=== PATIENT | male | born 1970 | race Caucasian/White ===

== ENCOUNTER 2016-08-19 03:53 | Emergency (ER) | payer OTHER ==
[~2016-08-19] VITALS: Ht 165.1 cm; Wt 81.6 kg
--- NOTE | 2016-08-19 04:17 | ED GI/GU/ABDOMINAL COMPLAINT ---
History of Present Illness General Chief Complaint: Male Genitourinary Problems Stated Complaint: "TROUBLE URINATING" PER PT Source: patient Exam Limitations: no limitations Vital Signs & Intake/Output Vital Signs & Intake/Output Vital Signs Date Time Temp Pulse Resp B/P B/P Pulse O2 O2 Flow FiO2 Mean Ox Delivery Rate 08/19 0424 96.8 78 18 180/79 98 Room Air Allergies Coded Allergies: No Known Drug Allergies (nkda 08/19/16) Reconcile Medications Ciprofloxacin HCl (Cipro) 500 MG TABLET 1 TAB PO BID PROSTATITIS Tamsulosin HCl (Flomax) 0.4 MG CAP.ER.24H 1 CAP PO DAILY DIFFICULTY WITH URINATION Triage Nurses Notes Reviewed? yes Onset: Gradual Duration: week(s):, waxing and waning Timing: recent history Quality/Severity: cramping Location: suprapubic Radiation: no radiation Activities at Onset: none Modifying Factors: Worsens With: urinating. Associated Symptoms: LOWER ABDOMINAL PAIN HPI: 46-year-old gentleman in prior good health presents with difficulty urinating for the past 2 weeks. He states that he urinates, sometimes he feels like he cannot completely empty his bladder. He notes occasional burning. He states that tonight he had increasing lower abdominal pressure and pain with urination. He has no fever chills nausea vomiting diarrhea chest pain shortness of breath or Reiger's. He is otherwise well. Past History Travel History Traveled to [place] past 21 day No Medical History Any Pertinent Medical History? see below for history Surgical History Surgical History: none Family History Hx Contributory? No Review of Systems Review of Systems Constitutional: Reports: no symptoms. EENTM: Reports: no symptoms. Respiratory: Reports: no symptoms. Cardiovascular: Reports: no symptoms. GI: Reports: no symptoms. Genitourinary: Reports: no symptoms. Musculoskeletal: Reports: no symptoms. Skin: Reports: no symptoms. Neurological/Psychological: Reports: no symptoms. Hematologic/Endocrine: Reports: no symptoms. Immunologic/Allergic: Reports: no symptoms. All Other Systems: Reviewed and Negative Physical Exam Physical Exam General Appearance: well developed/nourished, mild distress Head: atraumatic, normal appearance Eyes: Bilateral: normal appearance. Ears, Nose, Throat, Mouth: hearing grossly normal Neck: normal inspection, supple, full range of motion, normal alignment Respiratory: normal breath sounds Cardiovascular: regular rate/rhythm Gastrointestinal: normal bowel sounds, soft, mild suprapubic tenderness. No palpable bladder appreciated. Rectal: exquisitely tender slightly enlarged warm to touch prostate. Guaiac- negative Back: normal inspection Extremities: normal range of motion Neurologic/Psych: no motor/sensory deficits, awake, alert, oriented x 3 Skin: intact, normal color, warm/dry Core Measures ACS in differential dx? No Severe Sepsis Present: No Septic Shock Present: No Progress Differential Diagnosis: UTI versus prostatitis. Versus other Plan of Care: Given the exquisitely tender prostate, we will treat with Flomax and Cipro. He will follow-up with the urologist on Sunday. I encouraged close follow-up should his symptoms not improve. Initial ED EKG: none Departure Departure Disposition: HOME OR SELF CARE Condition: Stable Clinical Impression Primary Impression: Prostatitis Referrals: PATIENT HAS NO PRIMARY CARE DR (PCP/Family) Departure Forms: Customer Survey General Discharge Information Prescriptions: Current Visit Scripts Ciprofloxacin HCl (Cipro) 1 TAB PO BID #28 TAB Tamsulosin HCl (Flomax) 1 CAP PO DAILY #30 CAP
[2016-08-19 04:24] VITALS: BP 180/79
[2016-08-19] MEDS ORDERED: FLOMAX0.4 M1 PO (04:33)
[2016-08-19] MEDS ORDERED: CIPRO500 M1 PO (04:33)
== END 2016-08-19 04:43 ==
LOC: ERH 03:53
DX: N41.9 Inflammatory disease of prostate, unspecified (principal)

== ENCOUNTER → 2016-09-07 | Day surgery (SDC) | payer OTHER ==
[~2016-09-07] VITALS: Ht 160 cm; Wt 81.6 kg
[~2016-09-07] MED LIST: CIPRO500 M1 PO; FLOMAX0.4 M1 PO
--- NOTE | 2016-09-07 14:02 | Operative Report ---
Operative/Inv Procedure Report Surgery Date: 09/07/16 Name of Procedure: cystoscopy: laser litho. bladder stone; left retrograde pyelogram with flexible ureteroscopy Pre-Operative Diagnosis: hematuria: bladder stone; left renal colic. Post-Operative Diagnosis: same Estimated Blood Loss: scant Surgeon/Oil Spot Washer: DELILAH KIDD MD Anesthesia: moderate sedation Complications: none Operative/Procedure Note Note: The patient was taken to the operating room and placed on the OR table in supine position. Timeout was performed with the patient awake in order to confirm, and other pertinent perioperative information. After adequate anesthesia and antibiotics, the patient was then placed lithotomy stirrups, draped and prepped in the usual surgical fashion. A 24 Algerian continuous flow laser scope was then inserted under direct visualization using a 30 angle lens. An entering the prostatic urethra the prostate was noted to be enlarged. Upon entering the bladder, the bladder was noted to have significant trabeculation, and a large bladder stone appoximately 2.5cm in size.. The 600 mcm, YAG laser fiber was then inserted through the laser scope. With the laser fiber extended through the scope, and in direct contact with the stone, the laser was fired in order to proceed with a lithotripsy of these bladder stones. After an extended period of time, all of the stones was obliterated. A Kiah syringe was then used in order to aspirate, and evacuate all of the fragments. Fragments were sent to pathology for analysis. Thorough and systematic surveillance the bladder reveals no other bladder stones, or fragments. The Laserscope was then removed without difficulty, leaving the bladder full. A 22 Algerian cystoscope sheath with 30 angle lens was re-inserted into the bladder without difficulty. Upon entering the bladder, the bladder was noted to be free of tumor free of stone. Both orifices were in their orthotopic position. The left ureter orifice was intubated with an 8fr cone-tip catheter and a retrograde pyelogram with fluoroscopy was performed. An 8 mm left mid- ureter filling defect c/w stone was visualized, as well as, left proximal hydronephrosis. The cone-tipped catheter was removed, followed by insertion of a 0.035 Glidewire, which was advanced into the left renal pelvis without difficulty, and placement confirmed on fluoroscopy. Leaving the Glidewire in place, using a flexible ureteroscope, which was railroaded over the Glidewire with fluoroscopic visualization into the left kidney. Roscope, the bladder was then re-entered under direct visualization. The left ureter orifice was clearly visible and wide open. The ureteroscope was ealily advanced/inserted into the open ureter under direct visualization. Pyeloscopy, and visualization of the upper middle and lower calyces was performed revealing no tumor, no stone. The ureteroscope was then gently extracted, and the entire left renal pelvis and ureter was visualized, revealing no other stones, nor any tumor. The patient tolerated procedure well, and was taken to the recovery room in satisfactory condition. Findings: no ureter stone/tumor Discharge Disposition: PACU CC: DELILAH KIDD MD
== END ==
LOC: STS 03:05
DX: N21.0 Calculus in bladder (principal); R31.9 Hematuria, unspecified; N40.1 Benign prostatic hyperplasia with lower urinary tract symptoms; R30.0 Dysuria; Z87.891 Personal history of nicotine dependence
CPT/HCPCS: 82355; J0131; J1100; J1885; J2250; J2405

== ENCOUNTER → 2016-09-19 | Day surgery (SDC) | payer OTHER ==
[~2016-09-19] VITALS: Ht 160 cm; Wt 81.6 kg
--- NOTE | 2016-09-19 16:02 | Operative Report ---
Operative/Inv Procedure Report Surgery Date: 09/19/16 Name of Procedure: right ESWL: fluoroscopy Pre-Operative Diagnosis: right stone Post-Operative Diagnosis: same Estimated Blood Loss: none Surgeon/Document Control Specialist: DELILAH KIDD MD Anesthesia: moderate sedation Complications: none Operative/Procedure Note Note: The patient was taken to the operating room placed on the OR table in supine position. Timeout was performed, with the patient awake, in order to confirm correct procedure, laterality, anesthesia, and other pertinent perioperative information. After adequate anesthesia and antibiotics, the patient was then positioned over the ESWL table cutout overlying the treatment dome. Fluoroscopy , using AP and oblique views, as well as renal ultrasound, or performed in order to locate the stone. The position of the stone was optimized and positioned in the middle of the ESWL crosshairs. The stone was measured to be approximately 7 mm in size. ESWL was initiated at low power, and after 200 shockwaves delivered , noting the patient's tolerance to the shockwaves, the power was increased to maximum. At the end of 2500 shockwaves, fluoroscopy confirms the change in consistency of the stone, indicating shattering of the stone. The patient tolerated this procedure well. Discharge Disposition: Same Day Admissions CC: DELILAH KIDD MD
== END ==
LOC: STS 02:15
DX: N20.0 Calculus of kidney (principal)
CPT/HCPCS: J2250

== ENCOUNTER 2017-04-19 03:17 | Inpatient (IN) | payer OTHER ==
[~2017-04-19] VITALS: Ht 160 cm; Wt 70.3 kg
--- NOTE | 2017-04-19 04:21 | ED GI/GU/ABDOMINAL COMPLAINT ---
History of Present Illness General Chief Complaint: General Adult Stated Complaint: "I'M HAVING ALOT OF GAS PAIN" DIFF BREATHING Source: patient, family, old records Exam Limitations: no limitations Vital Signs & Intake/Output Vital Signs & Intake/Output Vital Signs Date Time Temp Pulse Resp B/P B/P Pulse O2 O2 Flow FiO2 Mean Ox Delivery Rate 04/19 0339 96.6 93 17 144/89 95 Allergies Coded Allergies: No Known Drug Allergies (nkda 08/19/16) Reconcile Medications No Known Home Medications Triage Note: PT REPORTS GAS PAIN L ABD "WHICH MAKES IT HARD TO BREATHE" STARTING AT APPROX 4PM, WITH INERMITTENT NAUSEA. REPORTS CONSTIPATION BUT HAD A BM 3 HR AGO. "IM NAUSEOUS WHEN I WALK". DENIES NAUSEA AT THIS TIME. Triage Nurses Notes Reviewed? yes Onset: Morning Duration: hour(s):, constant, continues in ED Timing: recent history Quality/Severity: fullness, moderate Location: left flank Radiation: no radiation Activities at Onset: none Prior Abdominal Problems: none Past Sexual History: Unobtainable at this time Modifying Factors: Improves With: lying down. Associated Symptoms: abdominal pain, heartburn, loss of appetite HPI: Less than 1 day prior to admission patient complains of constant left flank pain described as unable to pass gas with distention mild to moderate severity. He moved his bowels several hours prior to admission that was watery. He denies fever chills nausea vomiting chest pain cough shortness of breath headache dysuria rash bleeding. (Gene Sauceda MD) Past History Travel History Traveled to [place] past 21 day No Medical History Any Pertinent Medical History? see below for history Neurological: NONE EENT: NONE Cardiovascular: NONE Respiratory: NONE Gastrointestinal: NONE Hepatic: NONE Renal: nephrolithiasis Musculoskeletal: NONE Psychiatric: NONE Endocrine: NONE Surgical History Surgical History: none Psychosocial History What is your primary language Grenadian Tobacco Use: Never used ETOH Use: occasional use Family History Hx Contributory? No (Gene Sauceda MD) Review of Systems Review of Systems Constitutional: Reports: no symptoms. EENTM: Reports: no symptoms. Respiratory: Reports: no symptoms. Cardiovascular: Reports: no symptoms. GI: Reports: see HPI, abdominal pain, bloating, diarrhea. Genitourinary: Reports: no symptoms. Musculoskeletal: Reports: no symptoms. Skin: Reports: no symptoms. Neurological/Psychological: Reports: no symptoms. Hematologic/Endocrine: Reports: no symptoms. Immunologic/Allergic: Reports: no symptoms. All Other Systems: Reviewed and Negative (Gene Sauceda MD) Physical Exam Physical Exam General Appearance: well developed/nourished, alert, awake, anxious, mild distress Head: atraumatic, normal appearance Eyes: Bilateral: normal appearance, PERRL, EOMI, normal inspection. Ears, Nose, Throat, Mouth: hearing grossly normal, moist mucous membrane Neck: normal inspection, supple, full range of motion, normal alignment Respiratory: normal breath sounds, chest non-tender, no respiratory distress, quiet respiration, lungs clear Cardiovascular: regular rate/rhythm, normal peripheral pulses, norml femoral pulses equa Peripheral Pulses: 4+ carotid (R), 4+ carotid (L) Gastrointestinal: soft, non-tender, no organomegaly, abnormal bowel sounds Male Genitals: normal genitalia Back: normal inspection, normal range of motion Extremities: normal range of motion, no ligament instability Neurologic/Psych: no motor/sensory deficits, awake, alert, oriented x 3, normal gait, normal mood/affect, manager lean II-XII nml as tested Skin: intact, normal color, warm/dry Core Measures ACS in differential dx? No Sepsis Present: No Sepsis Focused Exam Completed? No (Gene Sauceda MD) Progress Differential Diagnosis: gastritis, PUD/GERD Plan of Care: Orders Procedure Date/time Status Nothing by Mouth 04/19 L Active ED Holding Orders 04/19 725 Active Admit to inpatient 04/19 725 Active Vital Signs 04/19 725 Active Code Status 04/19 725 Active XRY-PORTABLE CHEST XRAY 04/19 06 Active URINALYSIS 04/19 353 Active TROPONIN LEVEL 04/19 353 Complete LIPASE 04/19 353 Complete COMPREHENSIVE METABOLIC PANEL 04/19 353 Complete CBC WITHOUT DIFFERENTIAL 04/19 353 Complete EKG 04/19 353 Active Laboratory Tests 04/19/17 0430: Anion Gap 15, Estimated GFR 43 L, BUN/Creatinine Ratio 7.1, Glucose 122 H, Calcium 9.5, Total Bilirubin 1.2, AST 28, ALT 39, Alkaline Phosphatase 106, Troponin I < 0.01, Total Protein 7.7, Albumin 4.7, Globulin 3.0, Albumin/ Globulin Ratio 1.6, Lipase 118, CBC w Diff NO MAN DIFF REQ, RBC 5.45, MCV 87.0, MCH 29.4, MCHC 33.7, RDW 13.5, MPV 8.3, Gran % 90.0 H, Lymphocytes % 5.1 L, Monocytes % 4.7, Eosinophils % 0.2, Basophils % 0, Absolute Granulocytes 12.3 H , Absolute Lymphocytes 0.7 L, Absolute Monocytes 0.6, Absolute Eosinophils 0, Absolute Basophils 0 Diagnostic Imaging: Viewed by Me: Radiology Read. Discussed w/RAD: Radiology Read. Radiology Impression: 1. No acute change of chest. 2. Nearly gasless abdomen with only a few small scattered air-fluid levels. CT scan abdomen and pelvis would be helpful for further assessment. 3. Pancreatic calcifications consistent with chronic pancreatitis., 1. Hydronephrosis of left kidney dilatation down to the left ureterovesical junction without stone in the ureter or bladder. There is a nonobstructive large stone in lower pole of left kidney. 2. Small bowel dilatation with transition point in right lower quadrant. Bowel pattern suggests a small bowel obstruction rather than ileus. 3. Right inguinal hernia containing a knuckle of the bladder and a small amount of fluid in the hernia sac. Initial ED EKG: normal axis, normal intervals, normal p-waves, normal QRS complex, normal sinus rhythm, no ST T wave changes Rhythm Strip: normal sinus rhythm Hand-Off Endorsed To: Lucius Damian MD Endorsed Time: 656 Pending: other (Sx) (Gene Sauceda MD) Departure Departure Disposition: STILL A PATIENT Condition: Fair Clinical Impression Primary Impression: Small bowel obstruction Secondary Impressions: Acute kidney injury Referrals: Inez Colindres MD, I (PCP/Family) Departure Forms: Customer Survey General Discharge Information Prescriptions: Current Visit Scripts No Known Home Medications (Gene Sauceda MD) Admission Note Spoke With: Geronimo Mae DO Documentation of Exam: Documentation of any treatments & extenuating circumstances including Concerns Regarding Discharge (functional status, medication knowledge or non-compliance, living conditions, etc.) that warrant an admission rather than observation: [NPO , NGT, IV FLUIDS, MAY REQUIRE SURGICAL INTERVENTION IF SBO DOES NOT SELF RESOLVE.] (Lucius Damian MD)
[2017-04-19 04:40] LABS: ABSOLUTE BASOPHIL COUNT 0 /CUMM (0.0-0.2); ABSOLUTE EOSINOPHIL COUNT 0 /CUMM (0.0-0.7); ABSOLUTE GRANULOCYTE CT 12.3 /CUMM (1.4-6.5); ABSOLUTE LYMPH COUNT 0.7 /CUMM (1.2-3.4); ABSOLUTE MONOCYTE COUNT 0.6 /CUMM (0.10-0.60); BASOPHIL % 0 % (0.0-2.0); EOSINOPHIL % 0.2 % (0-5); HEMATOCRIT 47.5 % (42-52); MEAN CORPUSCULAR HGB 29.4 PG (27.0-31.0); MEAN CORPUSCULAR HGB CONC 33.7 G/DL (33.0-37.0); MEAN PLATELET VOLUME 8.3 FL (7.4-10.4); PLATELET COUNT 254 /CUMM (130-400); RBC DISTRIBUTION WIDTH 13.5 % (11.5-14.5); RED BLOOD CELL CT 5.45 /CUMM (4.70-6.10); WHITE BLOOD CELL COUNT 13.7 /CUMM (4.8-10.8)
--- NOTE | 2017-04-19 04:40 | RADIOLOGY REPORT ---
EXAMINATION: XR ABDOMEN WITH PA CHEST CLINICAL INDICATION: Small bowel obstruction. Left flank pain. Nausea. Abdominal distention. COMPARISON: None TECHNIQUE: Single view chest. Supine upright abdomen FINDINGS: Chest is normal. Lungs are clear. Cardiac and mediastinal contours are normal. No pleural effusion or pneumothorax. The abdomen is nearly gasless. There are just a few scattered nonspecific air-fluid levels. CT scan of the abdomen and pelvis with the helpful for further assessment. There are punctate calcifications of the pancreas consistent with chronic pancreatitis. No free air. IMPRESSION: 1. No acute change of chest. 2. Nearly gasless abdomen with only a few small scattered air-fluid levels. CT scan abdomen and pelvis would be helpful for further assessment. 3. Pancreatic calcifications consistent with chronic pancreatitis.
--- NOTE | 2017-04-19 05:51 | CT SCAN REPORT ---
EXAMINATION: CT ABDOMEN AND PELVIS WITHOUT CONTRAST CLINICAL INFORMATION: Left flank pain COMPARISON: None TECHNIQUE: Multidetector volumetric imaging was performed from the superior aspect of the liver through the pubic symphysis. Sagittal and coronal reformatted images were obtained on the technologist's workstation. DLP: 391.80 mGy-cm FINDINGS: LUNG BASES: The visualized lung bases are unremarkable. LIVER, GALLBLADDER, AND BILIARY TREE: The liver is normal in size, shape, and attenuation. No focal hepatic lesion or biliary ductal dilatation is present. The gallbladder is unremarkable with no evidence of radiopaque gallstones, gallbladder wall thickening, or obvious pericholecystic inflammatory changes. PANCREAS: Unremarkable. SPLEEN: Unremarkable. ADRENAL GLANDS: Unremarkable. KIDNEYS AND URETERS: There is a stone in lower pole calyx of the left kidney. Stone measures 1.6 x 1.2 cm. The stone has a density measurement of 385 Hounsfield units. The stone lies 7.5 cm from the posterior lateral skin line. There is moderate hydronephrosis of left kidney with distention renal pelvis calyces and ureter to the ureterovesical junction. No stone is present within the ureter nor the bladder. The right kidney and ureter are normal. BLADDER: There is a right inguinal hernia. This contains a portion of the bladder wall extending into the hernia. No stone in the bladder. No bladder wall thickening. GASTROINTESTINAL TRACT: The bowel pattern is abnormal. There are dilated bowel loops. The small bowel loops of the mid and upper abdomen are dilated down to the right lower quadrant. Is a transition point in the right lower quadrant with the terminal ileum being decompressed. This transition suggest this bowel dilatation is from obstruction rather than ileus. There is no edema of the bowel wall. No dilatation of the large bowel. The appendix is normal. ABDOMINAL WALL: Bilateral inguinal hernias. The hernia on the right contains a knuckle of the wall of the bladder and a small amount of fluid. This hernia measures 3.6 cm transverse. The left-sided hernia contains fat only measures 1.7 cm transverse. There is a small fat-containing umbilical hernia. LYMPH NODES: Normal. VASCULAR: Unremarkable. PELVIC VISCERA: Unremarkable. OSSEOUS STRUCTURES: Degenerative spondylosis of spine with bridging osteophytes and endplate spurs of the vertebrae. Multilevel facet joint arthrosis. IMPRESSION: 1. Hydronephrosis of left kidney dilatation down to the left ureterovesical junction without stone in the ureter or bladder. There is a nonobstructive large stone in lower pole of left kidney. 2. Small bowel dilatation with transition point in right lower quadrant. Bowel pattern suggests a small bowel obstruction rather than ileus. 3. Right inguinal hernia containing a knuckle of the bladder and a small amount of fluid in the hernia sac.
--- NOTE | 2017-04-19 07:38 | RADIOLOGY REPORT ---
EXAMINATION: XR PORTABLE CHEST CLINICAL INFORMATION: NG tube placement COMPARISON: None TECHNIQUE: Portable frontal view of the chest was obtained. FINDINGS: Nasogastric tube tip is noted at the GE junction. Further advancement is recommended. Cardiomegaly. Low lung volumes. Elevated right hemidiaphragm. Streaky infiltrate or atelectasis noted in the left base. Visualized bony thorax is intact. IMPRESSION: Nasogastric tube tip is at the level of GE junction. Further advancement is recommended. Low lung volumes. Streaky atelectasis or infiltrate noted in the left base.
--- NOTE | 2017-04-19 08:16 | History & Physical ---
Trinity Garciatany 04/19/17 0806: General Information and HPI Source of Information: patient Exam Limitations: no limitations History of Present Illness: PT states that he started having left-sided abdominal pain associated with nausea yesterday afternoon. pt says he has had one prior episode similar to thisa few months ago but that it spontaneously resolved while at home. He denies fever. no vomiting. last BM was last night and was watery. Pt has the urge to have a BM but is unable to go. Voiding. ambulating. Currently in ED with NG tube in place, minimal clear output whiel on suction, will rec advancing tube. Currently no pain. Allergies/Medications Allergies: Coded Allergies: No Known Drug Allergies (nkda 08/19/16) Home Med list No Known Home Medications Past History Travel History Traveled to [place] past 21 day No Medical History Neurological: NONE EENT: NONE Cardiovascular: NONE Respiratory: NONE Gastrointestinal: NONE Hepatic: NONE Renal: nephrolithiasis Musculoskeletal: NONE Psychiatric: NONE Endocrine: NONE Surgical History Surgical History: none Past Family/Social History Psychosocial History Who Do You Live With? spouse Smoking Status: Former Smoker (now uses E-vape) ETOH Use: occasional use Sexual History Past Sexual History Unobtainable at this time Review of Systems Review of Systems GI: Reports: abdominal pain, nausea. Comments as per HPI Exam & Diagnostic Data Physical Exam General Appearance No Acute Distress Skin No Rashes Skin Temp/Moisture Exam: Warm/Dry HEENT EOMI, Mucous Membr. moist/pink Neck Supple Cardiovascular Regular Rate Lungs Clear to Auscultation Abdomen Normal Bowel Sounds (distended, minimal BS, tender ) Extremities No Edema, Normal Pulses, No Tenderness/Swelling Assessment/Plan Assessment: 47yo M with SBO. Rec 23h Observation Rec Bowel rest with NGT on intermittent suction NPO IVF dvt ppx- SQ hep and ALPS encourage ambulation AM labs Will dw Geronimo Kenney DO 04/19/17 1850: Review of Systems Review of Systems Constitutional: Denies: no symptoms. EENTM: Denies: no symptoms. Cardiovascular: Denies: no symptoms. Respiratory: Denies: no symptoms. Genitourinary: Denies: no symptoms. Musculoskeletal: Denies: no symptoms. Skin: Denies: no symptoms. Neurological/Psychological: Denies: no symptoms. Hematologic/Endocrine: Denies: no symptoms. Exam & Diagnostic Data Last 24 Hrs of Vital Signs/I&O Vital Signs Date Time Temp Pulse Resp B/P B/P Pulse O2 O2 Flow FiO2 Mean Ox Delivery Rate 04/19 1836 98.0 66 16 164/90 98 Room Air 04/19 1344 98.9 67 18 190/86 100 Room Air Room Air 04/19 0948 97.8 78 20 138/82 95 Room Air 04/19 0339 96.6 93 17 144/89 95 Intake & Output 04/19 1600 04/19 0800 04/19 0000 Intake Total Output Total Balance Patient 150 lb Weight Assessment/Plan As Ranked By This Provider Problem List: 1. Small bowel obstruction Core Measures/Misc (11/26) Acute Coronary Syndrome ACS Diagnosis: No Congestive Heart Failure Congestive Heart Failure Diagnosis No Cerebrovascular Accident CVA/TIA Diagnosis: No VTE (View Protocol) VTE Risk Factors Age>40 No Mechanical VTE Prophylaxis d/t Early Ambulation No VTE Pharm Prophylaxis d/t LowRisk-No Interven Req'd Sepsis (View protocol) Sepsis Present: No Attending MD Review Statement Attending Statement Attending MD Statement: examined this patient, discuss w/resident/PA/GERIATRIC NURSE PRACTITIONER, agreed w/resident/PA/GERIATRIC NURSE PRACTITIONER, discussed with family, reviewed EMR data (avail), reviewed images Attending Assessment/Plan: Patient seen and examined, agree with above. Abdominal pain with N/V. AVSS. NGT clear. Abd - soft. Labs ok. CT scan - c/w SBO. Althugh he clinically at this time does not have obstructive symptoms, given the CT read will wait for repeat AXR, if contrast in colon will D/C NGT and start fulls, OOB.
--- NOTE | 2017-04-19 18:36 | Admission Core Measures ---
Acute Coronary Syndrome (CM) ACS Core Measures Acute Coronary Syndrome Diagnosis No Congestive Heart Failure (NEW) CHF Core Measures Congestive Heart Failure Diagnosis No Cerebrovascular Accident (NEW) CVA Core Measures CVA/TIA Diagnosis No Venous Thromboembolism VTE Core Aliya (View Protocol) VTE Risk Factors Age>40 No Mechanical VTE Prophylaxis d/t N/A MechProphylax Ordered No VTE Pharm Prophylaxis d/t NA PharmProphylax ordered Problem List As ranked by this Provider includes Assessment & Plan 1. Small bowel obstruction HOME MEDS Home Med List No Known Home Medications
[2017-04-19 19:24] VITALS: BP 138/82
--- NOTE | 2017-04-20 02:35 | RADIOLOGY REPORT ---
EXAMINATION: XR ABDOMEN MULTIPLE VIEWS CLINICAL INDICATION: Abdominal pain. Nausea. Gastrografin administered COMPARISON: CT abdomen pelvis April, TECHNIQUE: Supine upright abdomen FINDINGS: There is distended small bowel loops with air-fluid levels. Most of the large bowel is air-filled. The terminal ileum and distal small bowel loops have some contrast remaining and are decompressed. Large bowel is decompressed and holds most of the administered contrast. Minimal stool seen in the left colon. Bowel pattern again consistent with small bowel obstruction similar to the CT study of May 01, 2017. IMPRESSION: Abnormal bowel pattern consistent with small bowel obstruction. Most of the contrast does reach the colon.
[2017-04-20 05:26] VITALS: BP 130/80
--- NOTE | 2017-04-20 07:19 | PN- General Surgery ---
Subjective Subjective: hd #1 with resolving SBO. Had 3+bms overnight, including this morning. Minimal flatus. Still feels bloated. No nausea. Tolerating ice chips. Objective Vital Signs and I&Os Vital Signs Date Time Temp Pulse Resp B/P B/P Pulse O2 O2 Flow FiO2 Mean Ox Delivery Rate 04/20 525 98.4 65 20 130/80 97 Room Air 04/19 1924 98.0 65 18 138/82 99 Room Air 04/19 1836 98.0 66 16 164/90 98 Room Air 04/19 1344 98.9 67 18 190/86 100 Room Air Room Air 04/19 0948 97.8 78 20 138/82 95 Room Air Intake & Output 04/20 0804/20 0000 04/19 1600 04/19 0804/19 0000 04/18 1600 Intake Total 560 Output Total Balance 560 Intake, IV 460 Intake, Oral 100 Number 3 Bowel Movements Patient 155 lb 150 lb Weight Physical Exam: Gen: AAOx3 in NAD Cor: S1+S2+ Lungs: CTA tawny Abd: softly distended, NT Ext: no edema or calf tenderness to tawny lower extremities. Current Medications: Current Medications Sig/Derrick Start time Last Medication Dose Route Stop Time Status Admin Dextrose/Lactated 1,000 ML Q13H 04/20 0330 AC 04/20 Ringer's IV 0453 Dextrose/Sodium 1,000 ML .Q8H 04/19 08 DC 04/19 Chloride IV 0827 Heparin Sodium 5,000 UNIT Q8 04/19 1400 AC 04/20 (Porcine) SC 0457 Heparin Sodium 0 .STK-MED ONE 04/19 814 DC (Porcine) .ROUTE Morphine Sulfate 0 .STK-MED ONE 04/19 824 DC .ROUTE Morphine Sulfate 2 MG Q4P PRN 04/19 814 AC 04/19 IV 0827 Ondansetron HCl 0 .STK-MED ONE 04/19 814 DC .ROUTE Ondansetron HCl 4 MG Q8P PRN 04/19 08 AC 04/19 IV 0827 Phenol 2 SPRAY Q2P PRN 04/19 1845 AC EXT Potassium Chloride 40 MEQ ONCE ONE 04/20 0330 DC 04/20 PO 04/20 0331 0500 Potassium Chloride 40 MEQ Q8H 04/19 1700 DC 04/19 Dextrose/Water 1,000 ML IV 1852 Potassium Chloride 40 MEQ ONCE ONE 04/19 1645 CAN IV 04/19 1646 Results Last 48 Hours of Labs: Laboratory Tests 04/19 04/19 0750 0430 Chemistry Sodium (137 - 145 mmol/L) 141 Potassium (3.5 - 5.1 mmol/L) 3.1 L Chloride (98 - 107 mmol/L) 101 Carbon Dioxide (22 - 30 mmol/L) 25 Anion Gap (5 - 16) 15 BUN (9 - 20 mg/dL) 12 Creatinine (0.7 - 1.2 mg/dL) 1.7 H Estimated GFR (>60 ml/min) 43 L BUN/Creatinine Ratio (7 - 25 %) 7.1 Glucose (65 - 99 mg/dL) 122 H Calcium (8.4 - 10.2 mg/dL) 9.5 Total Bilirubin (0.2 - 1.3 mg/dL) 1.2 AST (17 - 59 U/L) 28 ALT (21 - 72 U/L) 39 Alkaline Phosphatase (< 127 U/L) 106 Troponin I (<0.11 ng/ml) < 0.01 Total Protein (6.3 - 8.2 g/dL) 7.7 Albumin (3.5 - 5.0 g/dL) 4.7 Globulin (1.9 - 4.2 gm/dL) 3.0 Albumin/Globulin Ratio (1.1 - 2.2 %) 1.6 Lipase (23 - 300 U/L) 118 Hematology CBC w Diff NO MAN DIFF REQ WBC (4.8 - 10.8 /CUMM) 13.7 H RBC (4.70 - 6.10 /CUMM) 5.45 Hgb (14.0 - 18.0 G/DL) 16.0 Hct (42 - 52 %) 47.5 MCV (80.0 - 94.0 FL) 87.0 MCH (27.0 - 31.0 PG) 29.4 MCHC (33.0 - 37.0 G/DL) 33.7 RDW (11.5 - 14.5 %) 13.5 Plt Count (130 - 400 /CUMM) 254 MPV (7.4 - 10.4 FL) 8.3 Gran % (42.2 - 75.2 %) 90.0 H Lymphocytes % (20.5 - 51.1 %) 5.1 L Monocytes % (1.7 - 9.3 %) 4.7 Eosinophils % (0 - 5 %) 0.2 Basophils % (0.0 - 2.0 %) 0 Absolute Granulocytes (1.4 - 6.5 /CUMM) 12.3 H Absolute Lymphocytes (1.2 - 3.4 /CUMM) 0.7 L Absolute Monocytes (0.10 - 0.60 /CUMM) 0.6 Absolute Eosinophils (0.0 - 0.7 /CUMM) 0 Absolute Basophils (0.0 - 0.2 /CUMM) 0 Urines Urinalysis HEAVY H Urine Color (YEL,AMB,STR) YEL Urine Clarity (CLEAR) HAZY H Urine pH (5.0 - 8.0) 6.0 Ur Specific [place] (1.001 - 1.035) 1.025 Urine Protein (NEG,<30 MG/DL) 30 H Urine Ketones (NEG) NEG Urine Nitrite (NEG) NEG Urine Bilirubin (NEG) NEG Urine Urobilinogen (0.1 - 1.0 EU/dl) 0.2 Ur Leukocyte Esterase (NEG) NEG Ur Microscopic SEDIMENT EXAMINED Urine RBC (0 - 5 /HPF) 15-25 H Urine WBC (0 - 2 /HPF) RARE Urine Mucus (FEW,NONE) FEW Urine Hemoglobin (NEG) MOD H Urine Glucose (N MG/DL) NEG Assessment/Plan Assessment/Plan A: HD #1 with resolving SBO; AVSS. Xray with dilated SB loops. Contrast in colon. Plan: Continue clears. OOB and ambulate. Consider repeat multiview abdomen. F/U labs. Core Measures Venous Thromboembolism VTE Risk Factors Age>40 No Mechanical VTE Prophylaxis d/t Early Ambulation No VTE Pharm Prophylaxis d/t LowRisk-No Interven Req'd
[2017-04-20 09:22] LABS: ABSOLUTE BASOPHIL COUNT 0 /CUMM (0.0-0.2); ABSOLUTE EOSINOPHIL COUNT 0.1 /CUMM (0.0-0.7); ABSOLUTE GRANULOCYTE CT 6.9 /CUMM (1.4-6.5); ABSOLUTE LYMPH COUNT 1.1 /CUMM (1.2-3.4); ABSOLUTE MONOCYTE COUNT 0.8 /CUMM (0.10-0.60); BASOPHIL % 0.3 % (0.0-2.0); EOSINOPHIL % 1.3 % (0-5); GRANULOCYTE % 76.7 % (42.2-75.2); MEAN CORPUSCULAR HGB 28.9 PG (27.0-31.0); MEAN CORPUSCULAR HGB CONC 33.1 G/DL (33.0-37.0); MEAN CORPUSCULAR VOLUME 87.3 FL (80.0-94.0); MEAN PLATELET VOLUME 8.9 FL (7.4-10.4); PLATELET COUNT 203 /CUMM (130-400); RBC DISTRIBUTION WIDTH 13.3 % (11.5-14.5); RED BLOOD CELL CT 4.84 /CUMM (4.70-6.10); WHITE BLOOD CELL COUNT 9.1 /CUMM (4.8-10.8)
[2017-04-20 10:07] LABS: HEMATOCRIT 42.2 % (42-52)
--- NOTE | 2017-04-20 13:40 | Patient Discharge Instructions ---
Discharge Instructions General Discharge Information You were seen/treated for: bowel obstruction You had these procedures: bowel rest, iv fluids (conservative, nonsurgical) Watch for these problems: recurrent abdominal pain, nausea/vomiting Diet Continue normal diet: Yes Recommended Diet: Regular Activity Full Activity/No Limits: Yes Activity Self Limited: Yes Acute Coronary Syndrome Inclusion Criteria At DC or during hospital stay patient has or had the following: ACS DIAGNOSIS No Discharge Core Measures Meds if any: Prescribed or Continued at Discharge Meds if any: NOT Prescribed or Continued at Discharge Congestive Heart Failure Inclusion Criteria At DC or during hospital stay patient has or had the following: CHF DIAGNOSIS No Discharge Core Measures Meds if any: Prescribed or Continued at Discharge Meds if any: NOT Prescribed or Continued at Discharge Cerebrovascular accident Inclusion Criteria At DC or during hospital stay patient has or had the following: CVA/TIA Diagnosis No Discharge Core Measures Meds if any: Prescribed or Continued at Discharge Meds if any: NOT Prescribed or Continued at Discharge Venous thromboembolism Inclusion Criteria VTE Diagnosis No VTE Type NONE VTE Confirmed by (Test) NONE Discharge Core Measures - Per Current guidelines, there needs to be overlap - treatment for the first 5 days of Warfarin therapy. - If discharged on Warfarin prior to 5 days of - overlap therapy, the patient will need to be - assessed for post discharge needs including - *Post discharge parental anticoagulation - *Warfarin and/or parental anticoagulation education - *Follow up date to check INR post discharge At least 5 days overlap therapy as Inpatient No Meds if any: Prescribed or Continued at Discharge Note: Overlap Therapy is Warfarin and Anticoagulant Meds if any: NOT Prescribed or Continued at Discharge
--- NOTE | 2017-04-20 13:44 | Surg Short-stay <48hrs Dis Sum ---
Visit Information Visit Dates Admission Date: 04/19/17 Discharge Date: 04/20/17 Surgical Short Stay DC Summary Admission Diagnosis: small bowel obstruction Final Diagnosis: same as above, with resolution Procedure(s): bowel rest, nonsurgical Summary/Significant Findings: Admitted for small bowel obstruction. Treated conservatively for iv fluids and bowel rest, with diet advancement with return of bowel function. Repeated xray showed contrast passed through colon. The patient had multiple bms and was tolerating diet advancement prior to discharge home. His potassium was replaced with oral kdur. Condition at Discharge: stable Discharge Disposition: home or self care Discharge instructions provided to patient/family: Yes Post discharge follow-up plan: call PCP for one week follow up Copies to: Inez Colindres MD, I
[2017-04-20 14:35] VITALS: BP 116/72
== END 2017-04-20 18:40 | DRG 390 ==
LOC: ERH 03:17 → ERHI 07:26 → 2NB 07:26 → ENRESERV 16:48 → ENTRNSPT 18:56 → EDTRNSPT 19:06 → EDTRNSPTSTS 19:06 → 2NB 19:14 → CMPTRNSPT 19:20 → ENPENDDIS 04-20 13:44 → ENTRNSPT 04-20 18:35 → 2NB 04-20 18:40 → CMPTRNSPT 04-20 19:22
PROVIDERS: Emergency Medicine; Physician Assistant Surgical
DX: K56.609 Unspecified intestinal obstruction, unspecified as to partial versus complete obstruction (principal); Z87.891 Personal history of nicotine dependence
CPT/HCPCS: 36415; 71045; 74021; 74022; 74176; 81001; 82436; 93005; 93010; 96361; 96374; 96375; J1644; J2405; J2765; J7042; J7060

== ENCOUNTER → 2017-05-22 | Day surgery (SDC) | payer OTHER ==
[~2017-05-22] VITALS: Ht 165.1 cm; Wt 72.6 kg
--- NOTE | 2017-05-22 14:21 | Operative Report ---
Operative/Inv Procedure Report Surgery Date: 05/22/17 Name of Procedure: left renal ESWL: fluoroscopy Pre-Operative Diagnosis: left renal stone: colic Post-Operative Diagnosis: same Estimated Blood Loss: none Surgeon/Concert Promoter: Adebayo Rodriguez MD Anesthesia: moderate sedation Specimens: none Complications: none Operative/Procedure Note Note: The patient was taken to the operating room and placed on the ESWL table in supine position. With the patient awake, timeout was performed to confirm correct identity, procedure, laterality, anesthesia, and other pertinent reid- operative information. After adequate anesthesia, the patient was positioned so that the patient's left flank was positioned over the table cut-out, overlying the dome of the treatment head. Once the patient was adequately sedated, fluoroscopy, as well as Renal ultrasound was used to locate the LEFT renal stone. Renal US confirmed the presence of the stone which measured it to be approximately 10 mm upper pole stone. The stone was visible with fluoroscopy. Renal US revealed, no hydronephrosis, and no solid tumor, and presence of the stone. The position of the stone was optimized by using fluoroscopy in AP and oblique views;placing the stone within the ESWL c-arm crosshairs. Once the stone's position was optimized , the LEFT renal E.S.W.L. was initiated at low energy level. After noting the patient's tolerance to the shockwaves, the intensitiy was ramped up to maximum level. At the end of the procedure, the left renal stone had dissintegrated. Of note, a total of 2500 shockwaves were delivered to the stone. The patient tolerated the ESWL procedures well, was awakened, then taken to recovery in satisfactory condition via stretcher. The patient was dischared home with pain medications, diet orders, and intructions to catch fragments by straining the urine. The patient to to have follow-up renal ultrasound and KUB in 1 to 2 weeks, prior to follow-up visit in my office. He will then proceed with metabolic stone work-up. Discharge Disposition: Same Day Admissions CC: Adebayo Rodriguez MD
== END ==
LOC: STS 02:01
DX: N20.0 Calculus of kidney (principal)

== ENCOUNTER 2017-07-26 06:19 | Inpatient (IN) | payer OTHER ==
[~2017-07-26] VITALS: Ht 162.6 cm; Wt 76.7 kg
--- NOTE | 2017-07-26 07:05 | ED GENERAL ADULT ---
History of Present Illness General Chief Complaint: General Adult Stated Complaint: PT C/O BODY PAIN Source: patient, family, old records Exam Limitations: no limitations Vital Signs & Intake/Output Vital Signs & Intake/Output Vital Signs Date Time Temp Pulse Resp B/P B/P Pulse O2 O2 Flow FiO2 Mean Ox Delivery Rate 07/26 0715 66 22 134/72 97 Allergies Coded Allergies: No Known Drug Allergies (nkda 08/19/16) Reconcile Medications No Known Home Medications Triage Note: PT FROM HOME C/O RIGHT KNEE PAIN THAT WAS FROM A PREVIOUS INJURY ON SUNDAY. PT STATES "TODAY I WOKE UP AND MY WHOLE BODY CRAMPED UP LIKE AMELIA HORSES" PTS STATES "I THINK ITS BECAUSE HE DOESNT DRINK ENOUGH WATER" PT IN NO ACUTE DISTRESS CURRENTLY. Triage Nurses Notes Reviewed? yes HPI: 4 days ago patient twisted his knee and had right knee pain. Patient went to a walk in center and was told that it was a knee sprain. He states that he was told to take 3-4 ibuprofen every 6 hours as needed for the pain. Patient had Aleve at home so figured that that the same thing she has been taking 4 Aleve every 6 hours over the past 3-1/2 days. Patient woke up this morning feeling generalized weakness and fatigue. His states that he has not been drinking a lot of fluids lately. Patient denies any headache or chest pain. He is no difficulty breathing. There is no orthopnea. Patient states that his muscles just ache all over and he feels weak. Past History Travel History Traveled to [place] past 21 day No Medical History Any Pertinent Medical History? see below for history Neurological: NONE EENT: NONE Cardiovascular: NONE Respiratory: NONE Gastrointestinal: NONE Hepatic: NONE Renal: nephrolithiasis Musculoskeletal: NONE Psychiatric: NONE Endocrine: NONE Blood Disorders: NONE Cancer(s): NONE History of MRSA: No History of VRE: No History of CDIFF: No Surgical History Surgical History: KIDNEY STONES REMOVED Psychosocial History Who do you live with Spouse Services at Home None What is your primary language Chilean Tobacco Use: Quit >30 days ago ETOH Use: occasional use Illicit Drug Use: denies illicit drug use Family History Hx Contributory? No Review of Systems Review of Systems Constitutional: Reports: see HPI, weakness. EENTM: Reports: no symptoms. Respiratory: Reports: no symptoms. Cardiovascular: Reports: no symptoms. GI: Reports: no symptoms. Genitourinary: Reports: no symptoms. Musculoskeletal: Reports: see HPI, joint pain, muscle pain. Skin: Reports: no symptoms. Neurological/Psychological: Reports: no symptoms. Hematologic/Endocrine: Reports: no symptoms. Immunologic/Allergic: Reports: no symptoms. All Other Systems: Reviewed and Negative Physical Exam Physical Exam General Appearance: well developed/nourished, alert, awake, mild distress Head: atraumatic, normal appearance Eyes: Bilateral: PERRL, EOMI. Ears, Nose, Throat: normal pharynx, normal ENT inspection, hearing grossly normal Neck: normal inspection, supple, full range of motion Respiratory: normal breath sounds, chest non-tender, no respiratory distress, lungs clear Cardiovascular: regular rate/rhythm, normal peripheral pulses Gastrointestinal: normal bowel sounds, soft, non-tender, no organomegaly Back: normal inspection, normal range of motion Extremities: normal inspection, normal capillary refill, normal range of motion, no edema, FULL ROM RIGHT KNEE, LIGAMENTS STABLE Neurologic/Psych: no motor/sensory deficits, awake, alert, oriented x 3, normal mood/affect Skin: intact, normal color, warm/dry Core Measures ACS in differential dx? No CVA/TIA Diagnosis: No Sepsis Present: No Sepsis Focused Exam Completed? No Progress Differential Diagnoses I considered the following diagnoses in my evaluation of the patient: [AFB, RHABDO, ELECTROLYTE ABNORMALITY, DEHYDRATION] Plan of Care: Orders Procedure Date/time Status Regular Diet 07/26 L Active Add-on Test (ER Only) 07/26 0944 Active Add-on Test (ER Only) 07/26 0929 Active Schmitt, Insertion/Removal/Asses 07/26 0919 Active CULTURE,URINE 07/26 0919 Active ARTERIAL BLOOD GAS (GEN) 07/26 0900 Active Add-on Test (ER Only) 07/26 0859 Active Add-on Test (ER Only) 07/26 0854 Active US-RENAL/KIDNEY 07/26 0843 Active ED Holding Orders 07/26 0837 Active Admit to inpatient 07/26 0837 Active Vital Signs 07/26 0837 Active Code Status 07/26 0837 Active EKG 07/26 0816 Active TROPONIN LEVEL 07/26 0715 Active PHOSPHORUS 07/26 0715 Active SERUM OSMOLALITY 07/26 0715 Active LACTIC ACID 07/26 0715 Active ETHANOL 05/17 0715 Active URINE TOTAL PROT/CREAT RATIO 07/27 703 Active URINE LYTES, SPOT 07/27 703 Active URINALYSIS 07/27 703 Active PARTIAL THROMBOPLASTIN TIME 07/27 703 Complete PROTHROMBIN TIME 07/27 703 Complete COMPREHENSIVE METABOLIC PANEL 07/27 703 Active CREATINE PHOSPHOKINASE 07/27 703 Active CBC WITHOUT DIFFERENTIAL 07/27 703 Complete Current Medications Sig/Derrick Start time Last Medication Dose Stop Time Status Admin Sodium Bicarbonate 150 MEQ Q8H 07/26 09 AC (Sodium Bicarbonate 8.4%) Dextrose/Water 1,000 ML (D5W 1000) Laboratory Tests 07/26/17 09: pH 7.24 *L, pCO2 16 L, pO2 131 H, HCO3 6.6 L, ABG O2 Sat (Measured) 98.0, Carboxyhemoglobin 0.2 L, O2 Concentration % 21, O2 Delivery Method RA, Phlebotomy Draw Site RIGHT BRACHIAL 07/26/17714: Anion Gap 34 H, Estimated GFR 8 L, BUN/Creatinine Ratio 6.4 L, Glucose 126 H , Serum Osmolality 278 L, Lactic Acid Pending, Calcium 6.7 L, Phosphorus 13.5 H, Total Bilirubin 2.6 H, AST 46, ALT 39, Alkaline Phosphatase 109, Creatine Kinase 1265 H, Troponin I 0.02, Total Protein 7.0, Albumin 4.0, Globulin 3.0, Albumin/Globulin Ratio 1.3, PT 13.6 H, INR 1.24 H, APTT 32, CBC w Diff MAN DIFF ORDERED, RBC 5.71, MCV 85.4, MCH 29.0, MCHC 34.0, RDW 14.4, MPV 8.4, Gran % 89.1 H, Lymphocytes % 4.4 L, Monocytes % 6.4, Eosinophils % 0, Basophils % 0.1 , Absolute Granulocytes 21.7 H, Segmented Neutrophils 81 H, Band Neutrophils 7 H, Absolute Lymphocytes 1.1 L, Lymphocytes 5 L, Monocytes 7, Absolute Monocytes 1.6 H, Absolute Eosinophils 0, Absolute Basophils 0, Platelet Estimate ADEQUATE, Normocytic RBCs VERIFIED, Normochromic RBCs VERIFIED, Serum Alcohol < 10.0 Microbiology 07/26 918 URINE ROUT: Urine Culture - ORD Diagnostic Imaging: Viewed by Me: Radiology Read. Discussed w/RAD: Radiology Read. CXR Impression: PATIENT: NORM GRIFFIN PRESENT AGE: 47 PATIENT ACCOUNT NO: [id number] : 70 LOCATION: [facility] ORDERING PHYSICIAN: Lucius Damian MD SERVICE DATE: 07/26/17 EXAM TYPE: RAD - XRY-CHEST XRAY, TWO VIEWS EXAMINATION: XR CHEST CLINICAL INFORMATION: Evaluate for pneumonia. Leukocytosis. COMPARISON: Chest x-ray most recent prior dated 10/2017. TECHNIQUE: 2 views of the chest were obtained. FINDINGS: Cardiomediastinal silhouette is within normal limits. No acute airspace opacity. Mild elevation of the right hemidiaphragm noted again. Improved aeration bilateral lungs compared to the prior study. No evidence of pleural effusion. Bony thorax is intact. IMPRESSION: No acute pulmonary disease. DICTATED BY: Justin Jiang MD DATE/TIME DICTATED:07/26/17853 PROCUREMENT COST COORDINATOR:MARCO A DATE/ TIME TRANSCRIBED:07/26/17853 CONFIDENTIAL, DO NOT COPY WITHOUT APPROPRIATE AUTHORIZATION. <Electronically signed in Other Vendor System> SIGNED BY: Justin Jiang MD 07/26/1759 Initial ED EKG: NSR, nonspecific ST T wave chg Prior EKG: unchanged Comments: D/W DR. BRAR, START BICARB DRIP, CHECK PHOSPHORUS, CHECK URINE LYTES, CHECK NONCONTRAST CT, CHECK URINE PROT/CR RATIO D/W POISON CONTROL, THEY WILL FOLLOW ALONG. PT DENIES ANY TOXICALCOHOLS, AT BEDSIDE AND SHE HAS NO CONCERNS, CHECK SERUM OSM. Departure Departure Disposition: STILL A PATIENT Condition: Fair Clinical Impression Primary Impression: ARF (acute renal failure) Secondary Impressions: Elevated CK, Hypocalcemia, Leukocytosis Referrals: Inez Colindres MD, I (PCP/Family) Departure Forms: Customer Survey General Discharge Information Prescriptions: Current Visit Scripts No Known Home Medications Admission Note Spoke With: Isidoro REES,Eric Holloway Documentation of Exam: Documentation of any treatments & extenuating circumstances including Concerns Regarding Discharge (functional status, medication knowledge or non-compliance, living conditions, etc.) that warrant an admission rather than observation: [IV fluids, renal consultation, hold all nonsteroidal anti-inflammatories, follow renal function closely. It is unknown at this time and the patient will require dialysis or if his kidney function will improve. PT TO BE ADMITTED TO THE ICU] Critical Care Note Critical Care Note Critical Care Time: mins: (120 MIN) Critical Care Time: mins: (120 MIN)
[2017-07-26 07:37] LABS: PT 13.6 SEC (9.4-12.5); PTT 32 SEC (25-37)
[2017-07-26 07:46] LABS: ABSOLUTE BASOPHIL COUNT 0 /CUMM (0.0-0.2); ABSOLUTE EOSINOPHIL COUNT 0 /CUMM (0.0-0.7); ABSOLUTE GRANULOCYTE CT 21.7 /CUMM (1.4-6.5); ABSOLUTE LYMPH COUNT 1.1 /CUMM (1.2-3.4); ABSOLUTE MONOCYTE COUNT 1.6 /CUMM (0.10-0.60); BASOPHIL % 0.1 % (0.0-2.0); EOSINOPHIL % 0 % (0-5); GRANULOCYTE % 89.1 % (42.2-75.2); HEMATOCRIT 48.7 % (42-52); MEAN CORPUSCULAR VOLUME 85.4 FL (80.0-94.0); MEAN PLATELET VOLUME 8.4 FL (7.4-10.4); PLATELET COUNT 322 /CUMM (130-400); RBC DISTRIBUTION WIDTH 14.4 % (11.5-14.5); RED BLOOD CELL CT 5.71 /CUMM (4.70-6.10); WHITE BLOOD CELL COUNT 24.4 /CUMM (4.8-10.8)
--- NOTE | 2017-07-26 08:59 | RADIOLOGY REPORT ---
EXAMINATION: XR CHEST CLINICAL INFORMATION: Evaluate for pneumonia. Leukocytosis. COMPARISON: Chest x-ray most recent prior dated 04/19/2017. TECHNIQUE: 2 views of the chest were obtained. FINDINGS: Cardiomediastinal silhouette is within normal limits. No acute airspace opacity. Mild elevation of the right hemidiaphragm noted again. Improved aeration bilateral lungs compared to the prior study. No evidence of pleural effusion. Bony thorax is intact. IMPRESSION: No acute pulmonary disease.
--- NOTE | 2017-07-26 09:47 | CT SCAN REPORT ---
EXAMINATION: CT ABDOMEN AND PELVIS WITHOUT CONTRAST CLINICAL INFORMATION: Acute renal failure. COMPARISON: Abdominal CT April 2017. TECHNIQUE: Multidetector volumetric imaging was performed from the superior aspect of the liver through the pubic symphysis. Sagittal and coronal reformatted images were obtained on the technologist's workstation. FINDINGS: The lung bases are clear. Limited evaluation of the unenhanced liver, spleen, and adrenal glands reveals no definite abnormality. The gallbladder is decompressed and there are calculi within the gallbladder neck and cystic duct. No pericholecystic inflammatory changes. There is partial fatty atrophy of the pancreas. There is mild left-sided hydronephrosis that is improved in comparison to the prior exam. The dominant left renal calculus is now located within the left renal pelvis, measuring up to 1.7 cm in size with mean Hounsfield units of 380. This dominant calculus was previously in the left lower pole calyx where there is now an additional 1 cm calculus with mean Hounsfield units of 250. No radiopaque ureteral calculi. No right renal calculi. There is no right-sided hydronephrosis. There is intramural fat within the distal ileum and portions of the colon, a finding that can be seen as the sequela of inflammatory bowel disease. There is no evidence of active bowel inflammation. The large and small bowel are normal in caliber without evidence of mechanical obstruction. No focal inflammatory changes adjacent to the large or the small bowel. The appendix is normal. There is no free air and there is no intra-abdominal free fluid. No mesenteric or retroperitoneal adenopathy. There is a fat-containing right inguinal hernia which also contains a small portion of the bladder. No pelvic adenopathy. No free fluid within the pelvis. There are no acute osseous abnormalities. Bridging osteophytes within the partially imaged thoracic spine suggesting diffuse idiopathic skeletal hyperostosis. Mild lumbar spondylosis. IMPRESSION: - There is mild left-sided hydronephrosis that is improved in comparison to the prior exam. The dominant left renal calculus is now located within the left renal pelvis, measuring up to 1.7 cm in size with mean Hounsfield units of 380. This dominant calculus was previously located in a left lower pole calyx where there is now an additional 1 cm calculus with mean Hounsfield units of 250. - The gallbladder is decompressed and there are calculi within the gallbladder neck and cystic duct. No pericholecystic inflammatory changes. - There is intramural fat within the distal ileum and portions of the colon, a finding that can be seen as the sequela of inflammatory bowel disease. There is no evidence of active bowel inflammation. - There is a fat-containing right inguinal hernia which also contains a small portion of the bladder. This is stable.
--- NOTE | 2017-07-26 10:17 | History & Physical ---
Meme Mcqueen MD 07/26/17 1016: General Information and HPI MD Statement: I have seen and personally examined NORM GRIFFIN and documented this H&P. The patient is a 47 year old M who presented with a patient stated chief complaint of [muscle sorerness all over the body]. Source of Information: patient, old records, EMS Exam Limitations: no limitations History of Present Illness: Patient is a 47 YO M with PMH significant for Urinary bladder stones, Nephrolithiasis with multiple stone removals by (last ) presented to hospital for special care with muscle spasms all over the body after taking around 12 pills of Naproxen 200mg pills last sunday. Patient went to urgent care after having right knee injury due to mechanical fall on last sunday, he did not undergo any blood work at that place, is informed to take Motrin (Tylenol/ Ibuprofen) 2-3 pills every 6 hours. Patient took naproxen around 12 pills on Sunday. He denies taking any occasions since sunday. He did report feeling nauseous on Sunday night. He started experiencing soreness all over his muscles since Sunday morning and got worse by today which prompted him to come to ER. He reports decreased urine output since the past few days after taking Aleve and also burning sensation at the end of urination since last night. He reports being unaware of any abnormal renal numbers so far, reportedly well hydrated. ROS negative for chest pain, shortness of breath, diarrhea. Past medical history Nephrolithiasis requiring removal 3 times - Follows with Dr. Rodriguez. Last time May 2017 had a left renal ESBL for a renal colic. Spoke with PCP office - last lab work available was 08/10/16 with BUN/Cr 15/1.42, GFR - 59. No known drug allergies Medications Naproxen 200mg once in a while - last time 12 pills on sunday (07/24/17) Family history MOther and father - HTN Maternal grandfater - renal stones sibling - gall stones Social history Quit smoking - 1.5yr ago, used to smoke 2 packs per week for 12-13 yrs Occasional alcohol, no drugs. Surgical ESWL , Right ESWL 26 august 2016 - cystoscopy and laser lithotripsy for hematuria/bladder stone Allergies/Medications Allergies: Coded Allergies: No Known Drug Allergies (nkda 08/19/16) Home Med list No Known Home Medications Compliance With Home Meds: UNKNOWN Past History Travel History Traveled to [place] past 21 day No Medical History Neurological: NONE EENT: NONE Cardiovascular: NONE Respiratory: NONE Gastrointestinal: NONE Hepatic: NONE Renal: nephrolithiasis Musculoskeletal: NONE Psychiatric: NONE Endocrine: NONE Blood Disorders: NONE Cancer(s): NONE History of MRSA: No History of VRE: No History of CDIFF: No Surgical History Surgical History: KIDNEY STONES REMOVED Past Family/Social History Psychosocial History Where do you live? Home Who Do You Live With? spouse Services at Home: None Smoking Status: Former Smoker ETOH Use: occasional use Illicit Drug Use: denies illicit drug use Functional Ability ADLs Independent: dressing, eating, toileting, bathing. Ambulation: independent IADLs Independent: shopping, housework, finances, food prep, telephone, transportation , medication admin. Review of Systems Review of Systems Constitutional: Reports: see HPI. EENTM: Reports: see HPI. Cardiovascular: Reports: see HPI. Respiratory: Reports: see HPI. Comments Negative Exam & Diagnostic Data Last 24 Hrs of Vital Signs/I&O Vital Signs Date Time Temp Pulse Resp B/P B/P Pulse O2 O2 Flow FiO2 Mean Ox Delivery Rate 07/26 1230 97.4 100 20 158/86 96 Room Air 07/26 1200 98.0 62 20 148/79 98 07/26 1035 98.0 99 22 170/86 98 Room Air 07/26 0715 66 22 134/72 97 Intake & Output 07/26 1600 07/26 0800 07/26 0000 Intake Total 1000 Output Total 75 Balance 925 Intake, IV 1000 Output, Urine 75 Patient 72.575 kg 68.039 kg Weight Weight Reported by Patient Reported by Patient Measurement Method Physical Exam General Appearance Alert, Oriented X3, Cooperative Skin No Rashes, No Breakdown Skin Temp/Moisture Exam: Warm/Dry HEENT Atraumatic, PERRLA, EOMI Neck Supple, No JVD Cardiovascular Regular Rate, Normal S1, Normal S2, No Murmurs Lungs Clear to Auscultation, Normal Air Movement Abdomen Normal Bowel Sounds, Soft, No Tenderness Neurological Normal Speech, Strength at 5/5 X4 Ext, Normal Tone Extremities No Clubbing, No Cyanosis, No Edema Vascular Normal Pulses Body Front and Back (Adult) 1) erythema with a small 2X2 bulging Last 24 Hrs of Labs/Jerry: Laboratory Tests 07/26/17 1450: Sodium Cancelled, Potassium Cancelled, Chloride Cancelled, Carbon Dioxide Cancelled, Anion Gap Cancelled, BUN Cancelled, Creatinine Cancelled, Glucose Cancelled, Calcium Cancelled, Phosphorus Cancelled, Magnesium Cancelled, Total Bilirubin Cancelled, AST Cancelled, ALT Cancelled, Albumin Cancelled 07/26/17 1448: Calcium Cancelled 07/26/17 1338: Hepatitis A IgM Ab Cancelled, Hep Bs Antigen Cancelled, Hep B Core IgM Ab Conf Cancelled, Hepatitis C Antibody Cancelled 07/26/17 1338: Sodium Pending, Potassium Pending, Chloride Pending, Carbon Dioxide Pending, Anion Gap Pending, BUN Pending, Creatinine Pending, Glucose 101 H, Calcium Pending, Phosphorus Pending, Magnesium Pending, Total Bilirubin Pending, AST Pending, ALT Pending, Albumin Pending, Hepatitis A IgM Ab Pending, Hep Bs Antigen Pending, Hep B Core IgM Ab Conf Pending, Hepatitis C Antibody Pending 07/26/17 1015: Urinalysis MANY H, Urine Color YEL, Urine Clarity HAZY H, Urine pH 6.0, Ur Specific Hamler 1.025, Urine Protein 100 H, Urine Ketones NEG, Urine Nitrite NEG, Urine Bilirubin NEG, Urine Urobilinogen 0.2, Ur Leukocyte Esterase TRACE H , Ur Microscopic SEDIMENT EXAMINED, Urine RBC PACKD H, Urine WBC RARE, Ur Epithelial Cells FEW, Urine Bacteria FEW H, Urine Hemoglobin LARGE H, Urine Glucose NEG 07/26/17 1015: Urine Opiates Screen < 100, Methadone Screen < 40, Barbiturate Screen < 60, Ur Phencyclidine Scrn < 6.00, Amphetamines Screen < 100, U Benzodiazepines Scrn < 85, Urine Cocaine Screen < 50, Urine Cannabis Screen < 5.00, Ur Random Creatinine 141.3, U Random Total Protein 85 H, Ur Random Sodium 90, Ur Random Potassium 11.5, Protein/Creatinin Ratio 0.6 H, Fraction Sodium Excret 3.4 H 07/26/17 1000: Sodium Cancelled, Potassium Cancelled, Chloride Cancelled, Carbon Dioxide Cancelled, Anion Gap Cancelled, BUN Cancelled, Creatinine Cancelled, Glucose Cancelled, Calcium Cancelled, Phosphorus Cancelled, Magnesium Cancelled, Total Bilirubin Cancelled, AST Cancelled, ALT Cancelled, Albumin Cancelled 07/26/17 0920: pH 7.24 *L, pCO2 16 L, pO2 131 H, HCO3 6.6 L, ABG O2 Sat (Measured) 98.0, Carboxyhemoglobin 0.2 L, O2 Concentration % 21, O2 Delivery Method RA, Phlebotomy Draw Site RIGHT BRACHIAL 07/26/17 0715: Anion Gap 34 H, Estimated GFR 8 L, BUN/Creatinine Ratio 6.4 L, Glucose 126 H , Serum Osmolality 278 L, Lactic Acid 3.3 H, Calcium 6.7 L, Phosphorus 13.5 H, Total Bilirubin 2.6 H, Direct Bilirubin 2.5 H, AST 46, ALT 39, Alkaline Phosphatase 109, Creatine Kinase 1265 H, Troponin I 0.02, Total Protein 7.0, Albumin 4.0, Globulin 3.0, Albumin/Globulin Ratio 1.3, 25-OH Vitamin D Total Pending, PTH Intact 466.8 H, PT 13.6 H, INR 1.24 H, APTT 32, CBC w Diff MAN DIFF ORDERED, RBC 5.71, MCV 85.4, MCH 29.0, MCHC 34.0, RDW 14.4, MPV 8.4, Gran % 89.1 H, Lymphocytes % 4.4 L, Monocytes % 6.4, Eosinophils % 0, Basophils % 0.1 , Absolute Granulocytes 21.7 H, Segmented Neutrophils 81 H, Band Neutrophils 7 H, Absolute Lymphocytes 1.1 L, Lymphocytes 5 L, Monocytes 7, Absolute Monocytes 1.6 H, Absolute Eosinophils 0, Absolute Basophils 0, Platelet Estimate ADEQUATE, Normocytic RBCs VERIFIED, Normochromic RBCs VERIFIED, Schistocytes , Serum Alcohol < 10.0 07/26/17 0704: Haptoglobin Pending, Ur Random Creatinine Cancelled, U Random Total Protein Cancelled, Ur Random Sodium Cancelled, Ur Random Potassium Cancelled, Fraction Sodium Excret Cancelled Microbiology 07/26 1353 BLOOD: Blood Culture - RECD 07/26 1338 BLOOD: Blood Culture - RECD 07/26 1210 UPPER RESP: Surveillance Culture - RECD 07/26 1205 GI: Surveillance Culture - RECD 07/26 1015 URINE ROUT: Urine Culture - RECD Diagnostic Data EKG Results NSR, sinus tachy, narrow QRS, prolonged QTc CXR Results IMPRESSION: No acute pulmonary disease. Assessment/Plan Assessment: Patient is a 47 YO M with PMH significant for Nephrolithiasis with multiple stone removals by presented to hospital for special care with muscle spasms all over the body after taking around 12 pills of Naproxen 200mg on 07/24/17. VS at admission are 98, Pulse 66, BP 134/72mmHg, on room air. Lab work up shows white count 24.4 granulocytes surgeon's assistant bandemia, sodium 129, patient 3.4, 92, bicarbonate 7, anion gap 34, BUN/creatinine 45/7, acid 3.3, phosphorus 13.5, calcium 6.7, total bili 2.6, direct bili 2.5, AST/ALT 46/39, AG 34, CK 1265, PTH was 66, vitamin D 5.2. ABG shows pH 7.24, bicarb 6, PaCO2 16. Imaging workup with CT scan did show left-sided hydronephrosis with improvement from previous exam and renal calculus in the left side measuring 1.7 cm in the left renal pelvis and 2.2 cm in the left renal ureter Differential Acute renal failure in the setting of 1. high dose of naproxen 2. Elevated CPK 3. Intoxication 4. ?dehydration ==> Intrinsic renal disease - BUN/Cr ratio <10 (6), FeNa >2%, Urine spot Na >40 (85) suggesting ATN in the setting of nephrotoxic drug intake. Intrarenal vasoconstriction in the setting of preexisting renal disease causing renal hypoperfusion without hypotension leading to drug induced ATN. [ No hypotension argues prerenal, normal kidneys on ultrasounds (no acute hydronephrosis) argues against postrenal causes ] Problem list 1. Acute renal failure 2. elevated CPK 3. Hypocalcemia with hyperphosphatemia 4. Secondary hyperparathyroidism - PTH 466 5. Vitamin D deficiency 6. H/o renal stones 7. Leukocytosis with bandemia in the setting of UA+ and abnormal LFT's 8. H/o SBO treated conservatively Plan Admit to ICU Acute renal failure in the setting of drug induced ATN Patient had history of renal and bladder stones with elevated creatinine in the past, however it is always checked in the setting of presentation with stones, never had lab work in between while he is asymptomatic. Now he had 2400mg of naproxen on 07/24/17 in the setting of renal disease. He didnot have any symptoms , lab work up is consistent with low bicarb, high phosphate, low calcium. * Drug induced ATN leading to renal failure with AGMA. * Avoid Nephrotoxic agents - now and forever. * NPO midnight for nontunneled catheter placement depending on renal function status * IV and oral bicarbonate to improve bicarbonate * ICU bundle Q4 * Nephrology on board - will evaluate early in the morning to reevaluate need for dialysis * No need for dialysis today Hypocalcemia with secondary hyperparathyroidism Patient had corrected calcium level of 6.7 --> 5.8 along with a Phosphate of 13.5-->10 at admission. PTH is 466, vitamin D level of 5.2, Albumin - 4. Muscle soreness can also correlate with hypocalcemia. It appears multifactorial in the setting of vitamin D deficiency, increased binding to phosphate, hypomagnesemia. PTH elevation appears physiological and represents intact parathyroid hormone, however need to rule out hyperparathyroidism given renal stones. EKG consistent with prolonged QTc. * Phosphate binder - calcium carbonate 1250 - 3 tabs with meals * Needs acidic environment for absorption - D/C PPI * Avoid QTc prolonging meds, repeat EKG in am * Recheck and Monitor for symptoms of hypocalcemia like twitching * Keep Mag >2. * Goal to normalize PTH in coordination with CKD stage in such a way that calcium remains low normal to near normal. Hyperphosphatemia - probably from renal osteodystrophy [?CKD] Phosphate of 13.5. This is more suggestive of CKD. Patient did have low vitamin D which could explain decreased calcium & phosphate absorbption. Low calcium potentially trigerred PTH raise idally causes retention of calcium, excretion of phosphorous. (initial stages of CKD - serum phosphate nl). Late in CKD, PTH unable to compensate for phosphate release from bone leading to high phosphate. Binding of calcium and phosphate leads to hypocalcemia which further increases PTH. * low phosphate diet * Maintain normal calcium levels - avoid trigger for PTH * Goal of bicarb drop - phos <6. * Calcium carbonate - binds phosphate in the meals. AGMA in the setting of acute renal failure Most likely from kidney inability to regenerate bicarbonate. * IV and oral bicarbonate repletion * Can D/C IV once bicarbonate is atleast 10 * Goal to maintain 23-28 Leukocytosis with bandemia in the setting of UA+ and abnormal LFT's Patient had burning of urination. Gallstones on imagning with no evidence of acute cholecystitis along with white count of 24 with bandemia. Lactate - 3.3. He did not meet SIRS criteria. * Blood and urine cultures * Monitor off antibiotics * Low threshold to start IV unasyn if spikes fever/hypotensive Hypomagnesemia Mag of 1.0, it could contribute to low K. Repleted * Keep Mag >2 Elevated CPK Patient had soreness all over the muscles. CPK is 1256. It do not seem to be the reason behind his renal injury, however he is symptomatic. * Gentle hydration with NS once bicarbonate improved * trend CPK Vitamin D deficiency Vitamin D level of 5.2. Probably secondary to decreased sun exposure. We would await till phosphate improves before repleting vitamin D. Possibly trigerred more PTH release. * No supplementation as it can further increase gut absorption. H/o Nephrolithiasis with left hydronephrosis He had ESWL twice and cystoscopy once for bladder stone removal. He had lab work during these acute events. Currently he is not having any symptoms of renal stones. Imaging did show improvement in hydronephrosis with persistence of stones in the left renal calculus and left ureter. * Urology on board * No acute intervention for renal stones at this time DVT prophylaxis SC heparin code status Full code Requested lab work up from PCP - Dr. Inez stuart As Ranked By This Provider Problem List: 1. Elevated CK 2. Leukocytosis 3. Hypocalcemia 4. ARF (acute renal failure) 5. Acute kidney injury Core Measures/Misc (11/26) Acute Coronary Syndrome ACS Diagnosis: No Congestive Heart Failure Congestive Heart Failure Diagnosis No Cerebrovascular Accident CVA/TIA Diagnosis: No VTE (View Protocol) VTE Risk Factors Acute Medical Illness No Mechanical VTE Prophylaxis d/t N/A MechProphylax Ordered No VTE Pharm Prophylaxis d/t NA PharmProphylax ordered Sepsis (View protocol) Sepsis Present: No Resident Review Statement Resident Statement: examined this patient, discussed with internal consultant, agreed with internal consultant, discussed with family, reviewed EMR data (avail), discussed with nursing , discussed with case mgmt, reviewed images, amended to note Other Findings: as above Isidoro REES,[facility] 07/26/17 1311: Attending MD Review Statement Attending Statement Attending MD Statement: examined this patient, discuss w/resident/PA/SUPERINTENDENT [employer]ING [employer], agreed w/resident/PA/SUPERINT[employer], discussed with family, reviewed EMR data (avail), discussed with nursing, discussed with case mgmt, reviewed images, amended to note Attending Assessment/Plan: Seen and examined multiple times, discussed with apartment house manager, renal, Full history as noted above This is a gentleman with history of nephrolithiasis, recent stone removal by Dr. Rodriguez for a UVJ stone, previous large stones in the left pelvis of the kidney, was having severe muscle cramping and spasms. He was seen in the walk-in center and was advised to take Aleve. Subsequently he became fatigued and was having difficulty with activity of daily living area and he continued to have some knee discomfort and pain. And the became into the emergency room. In the emergency room he was found to be in acute renal failure and sees being admitted. He has had no other significant past history other than being admitted to the hospital in April this year with significant small bowel obstruction-like features which resolved on its own. Patient subsequently was noted to have renal stones and the he did have left renal stone removal with ESWL by Dr. Rodriguez in May. Subsequently he has been relatively stable. No fever no chills No nausea vomiting Exam unremarkable Chest clear Heart S1 and S2 is heard abdominal exam soft mildly tender in the left mid abdomen no CVA tenderness no cyanosis clubbing or edema IMPRESSION This is a gentleman with the history of renal stones, previous surgery for removal of his left renal stone as he had renal colic in May, had ESWL, previous hydronephrosis on the left side, chronic kidney disease with creatinine at that time was 1.8 baseline, now has Acute renal failure with severe metabolic acidosis most likely precipitated by nonsteroidal use. No clinical evidence suggestive of any other toxicity causing very high anion gap he did not seem to have any osmolar gap as well. Ongoing left-sided mild hydronephrosis which appears to be better than the previous hydronephrosis with 2 large stones in the left pelvis of the kidney Elevated bilirubin with decompressed gallbladder and calculi within the gallbladder neck and cystic duct Previous muscle cramping probably related to electrolyte abnormality which needs to be followed Severe hypocalcemia with hyperphosphatemia related to his renal insufficiency Significant myopathy with elevated CPK of 1200 probably related to his muscle cramping. Patient also has very significantly elevated PTH may be a sign of his renal insufficiency but other causes of hyperparathyroid needs to be ruled out Intramural fat within the distal ileum and portions of the colon probably a sequelae of inflammatory bowel disease versus other issues. Patient recently did have small bowel obstruction Right small inguinal hernia which needs to be evaluated in the future RECOMMENDATION Admitted to the hospital Gentle IV hydration Bicarbonate drip Renal evaluation pending Will follow his bilirubin and alkaline phosphatase Panculture, will follow LFTs, alkaline phosphatase etc. and if this gets worse we will have to have a GI evaluation / surgical as he has a stone in the cystic duct. Low threshold to start abx soon with unasyn Gentle IV fluids for his elevated CPK. As he has hypocalcemia we will discuss with renal to see if his bicarbonate needs to be continued on just normal saline for now By mouth PPI Heparin subcutaneous Urology eval if needed Watch CPK Patient is critically ill total time spent 40 minutes
--- NOTE | 2017-07-26 10:49 | ULTRASOUND REPORT ---
EXAMINATION: US RETROPERITONEAL COMPLETE (RENAL) CLINICAL INFORMATION: Acute renal insufficiency.. COMPARISON: CT abdomen and pelvis most recent prior dated 07/26/2017 TECHNIQUE: Real-time imaging of the kidneys and bladder. FINDINGS: RIGHT KIDNEY: 10.4 x 6.6 x 5.9 cm (SAG x AP x TRV). The kidney is normal in size, contour, and echogenicity. Renal cortical thickness is normal. No calculi or focal parenchymal lesions. No hydronephrosis. LEFT KIDNEY: 9.7 x 5.1 x 4.7 cm (SAG x AP x TRV). Normal contour. Slightly increased cortical echogenicity likely in keeping with underlying medical renal disease. Renal cortical thickness is normal. Calculus mid left kidney measuring approximately 1.6 cm. Calculus in the lower pole measuring approximately 2.2 cm. No gross hydronephrosis. BLADDER: Nondistended urinary bladder. Ureteric jets could not be distended during exam. Patient had recently voided.. IMPRESSION: 1. Moderate to large sized calculi noted in the mid and lower left kidney measuring approximately 1.6 cm and 2.2 cm respectively. No evidence of hydronephrosis or obstructive uropathy. 2. Unremarkable right kidney. 3. Mild increased cortical echogenicity left kidney likely in keeping with underlying medical renal disease.
[2017-07-26 12:30] VITALS: BP 158/86
--- NOTE | 2017-07-26 13:12 | Cons- Nephrology ---
General Information and HPI Consulting Request Date of Consult: 07/26/17 Requested By: Morena Kim MD Reason for Consult: Acute kidney injury Source of Information: patient, old records Exam Limitations: no limitations History of Present Illness: This 47-year-old gentleman has a previous history of nephrolithiasis requiring stone removal. He was brought to the emergency room today because of weakness. He was found upon laboratory examination to have a creatinine of 7. He has no previous history of renal failure which he is aware, however, his serum creatinine was 1.6 and 1.8 on recent laboratory examinations. He is unaware of ever having any blood or protein in his urine. No one in his family has a history of renal failure or is on dialysis. He has 1 older sister who does have a history of urolithiasis. Of note, he had sustained trauma to his knee earlier in the week. This was on Sunday. He then began per the instructions of the walk-in clinic to use Aleve as pain relief. Instead of taking Aleve as one would following instructions on the bottle he was taking 3 Aleve every 6 hours or specifically every 4-6 hours much as you would if taking Advil (ibuprofen). He denies any aches or pains anywhere else. He reports having difficulty voiding for the last 24 hours. He tells me that when his Schmitt catheter was placed quite a bit of urine came out. His osmole gap 7. There is no family history of end-stage renal disease. He does have the older sister is mention with a history of stones. He himself does not have a history of diabetes or hypertension. His serum creatinine was elevated twice but only mildly so in the midst of one of his stone procedures. Allergies/Medications Allergies: Coded Allergies: No Known Drug Allergies (nkda 08/19/16) Home Med List: No Known Home Medications Current Medications: Current Medications Sig/Derrick Start time Last Medication Dose Route Stop Time Status Admin Sodium Bicarbonate 150 MEQ Q8H 07/26 0900 AC 07/26 Dextrose/Water 1,000 ML IV 0945 Sodium Chloride 1,000 ML BOLUS ONE 07/26 0715 DC 07/26 IV 07/26 0814 0735 Review of Systems Review of Systems Constitutional: Reports: weakness. Denies: chills, diaphoresis, fever, malaise, unexplained weight loss. EENTM: Denies: blurred vision, double vision, visual changes, hearing changes, epistaxis, nasal pain, throat pain. Cardiovascular: Denies: chest pain, edema, orthopena, palpitations, peripheral edema, syncope. Respiratory: Reports: no symptoms. Denies: cough, hemoptysis, orthopnea, short of breath, sputum production, stridor, wheezing. GI: Denies: abdominal pain, bloating, constipation, diarrhea, distention, bowel incontinence, melena, nausea, bloody stool, changes in stool, vomiting. Genitourinary: Reports: see HPI, hesitation. Denies: discharge, dysuria, frequency, hematuria, nocturia, pain, urgency. Musculoskeletal: Reports: joint pain. Denies: back pain, gout, joint swelling, muscle pain, muscle stiffness. Skin: Denies: change in skin color, change in hair/nails, dryness, erythema, jaundice, lesions. Neurological/Psychological: Reports: weakness. Denies: cognitive dysfunction, headache, numbness, paresthesia, tingling. Hematologic/Endocrine: Denies: bruising. Past History Travel History Traveled to [place] past 21 day No Medical History Neurological: NONE EENT: NONE Cardiovascular: NONE Respiratory: NONE Gastrointestinal: NONE Hepatic: NONE Renal: nephrolithiasis Musculoskeletal: NONE Psychiatric: NONE Endocrine: NONE Blood Disorders: NONE Cancer(s): NONE Surgical History Surgical History: KIDNEY STONES REMOVED, ESWL x2, cystoscopy with retrograde Psychosocial History Where Do You Live? Home Who Do You Live With? spouse Services at Home: None Smoking Status: Former Smoker ETOH Use: occasional use Illicit Drug Use: denies illicit drug use Exam & Diagnostic Data Vital Signs and I&O Vital Signs Date Time Temp Pulse Resp B/P B/P Pulse O2 O2 Flow FiO2 Mean Ox Delivery Rate 07/26 1230 97.4 100 20 158/86 96 Room Air 07/26 1200 98.0 62 20 148/79 98 07/26 1035 98.0 99 22 170/86 98 Room Air 07/26 0715 66 22 134/72 97 Intake & Output 07/26 1600 07/26 0400 07/25 1600 07/25 0400 07/24 1600 07/24 0400 Intake Total 1000 Output Total 75 Balance 925 Intake, IV 1000 Output, Urine 75 Patient 160 lb Weight Weight Reported by Patient Measurement Method Physical Exam General Appearance: well developed/nourished, no apparent distress, alert, awake , comfortable, obese Head: atraumatic, normal appearance Eyes: Bilateral: normal appearance, PERRL, EOMI. Ears, Nose, Throat: normal pharynx, normal ENT inspection, hearing grossly normal Neck: normal inspection, supple, full range of motion, trachea mid line, no midline tenderness, thyroid normal Respiratory: normal breath sounds, chest non-tender, no respiratory distress, lungs clear, no respiratory distress Peripheral Pulses: 3+ femoral (R), 3+ femoral (L), 3+ popliteal (R), 3+ popliteal (L), 3+ tibialis posterior (R), 3+ tibialis posterior (L), 3+ dorsalis pedis (R), 3+ dorsalis pedis (L) Gastrointestinal: normal bowel sounds, soft, non-tender, no organomegaly Back: normal inspection, normal range of motion, no vertebral tenderness, no CVA tenderness Extremities: normal inspection, normal capillary refill, normal range of motion, no edema, ecchymosis over right knee Cranial Nerves: normal hearing, normal speech, PERRL, cranial nerves II through XII intact Skin: intact, normal color, warm/dry, no rash noted Lymphatic: adenopathy, no anterior cervical jamari, no femoral lymphadenopathy Reproductive: Schmitt catheter in place Results Pertinent Lab Results: Laboratory Tests 07/26 07/26 1015 1015 Toxicology Urine Opiates Screen (>2000 NG/ML) < 100 Methadone Screen (>300 NG/ML) < 40 Barbiturate Screen (>200 NG/ML) < 60 Ur Phencyclidine Scrn (>25 NG/ML) < 6.00 Amphetamines Screen (>1000 NG/ML) < 100 U Benzodiazepines Scrn (>200 NG/ML) < 85 Urine Cocaine Screen (>300 NG/ML) < 50 Urine Cannabis Screen (>50 NG/ML) < 5.00 Urines Urinalysis MANY H Urine Color (YEL,AMB,STR) YEL Urine Clarity (CLEAR) HAZY H Urine pH (5.0 - 8.0) 6.0 Ur Specific [place] (1.001 - 1.035) 1.025 Urine Protein (NEG,<30 MG/DL) 100 H Urine Ketones (NEG) NEG Urine Nitrite (NEG) NEG Urine Bilirubin (NEG) NEG Urine Urobilinogen (0.1 - 1.0 EU/dl) 0.2 Ur Leukocyte Esterase (NEG) TRACE H Ur Microscopic SEDIMENT EXAMINED Urine RBC (0 - 5 /HPF) PACKD H Urine WBC (0 - 2 /HPF) RARE Ur Epithelial Cells (NONE,FEW) FEW Urine Bacteria (NEG/NONE) FEW H Urine Hemoglobin (NEG) LARGE H Ur Random Creatinine (mg/dL) 141.3 U Random Total Protein (0 - 12 mg/dL) 85 H Ur Random Sodium (30 - 90 mmol/L) 90 Ur Random Potassium (mmol/L) 11.5 Protein/Creatinin Ratio (< 0.2) 0.6 H Fraction Sodium Excret (<1% %) 3.4 H Urine Glucose (N MG/DL) NEG 07/26 07/26 0920 0715 Blood Gas pH (7.35 - 7.45 PH) 7.24 *L pCO2 (35 - 45 TORR) 16 L pO2 (80 - 100 TORR) 131 H HCO3 (21 - 28 MEQ/L) 6.6 L ABG O2 Sat (Measured) (>96.0 %) 98.0 Carboxyhemoglobin (1.5 - 5.0 %) 0.2 L O2 Concentration % 21 O2 Delivery Method RA Chemistry Sodium (137 - 145 mmol/L) 131 L Potassium (3.5 - 5.1 mmol/L) 4.1 Chloride (98 - 107 mmol/L) 91 L Carbon Dioxide (22 - 30 mmol/L) 6 *L Anion Gap (5 - 16) 34 H BUN (9 - 20 mg/dL) 45 H Creatinine (0.7 - 1.2 mg/dL) 7.0 *H Estimated GFR (>60 ml/min) 8 L BUN/Creatinine Ratio (7 - 25 %) 6.4 L Glucose (65 - 99 mg/dL) 126 H Serum Osmolality (285 - 295 MOSM/KG) 278 L Lactic Acid (0.7 - 2.1 mmol/L) Pending Calcium (8.4 - 10.2 mg/dL) 6.7 L Phosphorus (2.5 - 4.5 mg/dL) 13.5 H Total Bilirubin (0.2 - 1.3 mg/dL) 2.6 H Direct Bilirubin (< 0.4 mg/dL) 2.5 H AST (17 - 59 U/L) 46 ALT (21 - 72 U/L) 39 Alkaline Phosphatase (< 127 U/L) 109 Creatine Kinase (55 - 170 U/L) 1265 H Troponin I (<0.11 ng/ml) 0.02 Total Protein (6.3 - 8.2 g/dL) 7.0 Albumin (3.5 - 5.0 g/dL) 4.0 Globulin (1.9 - 4.2 gm/dL) 3.0 Albumin/Globulin Ratio (1.1 - 2.2 %) 1.3 25-OH Vitamin D Total (30 - 100 ng/ml) Pending PTH Intact (18.4 - 80.1 pg/ML) Pending Coagulation PT (9.4 - 12.5 SEC) 13.6 H INR (0.90 - 1.17) 1.24 H APTT (25 - 37 SEC) 32 Hematology CBC w Diff MAN DIFF ORDERED WBC (4.8 - 10.8 /CUMM) 24.4 H RBC (4.70 - 6.10 /CUMM) 5.71 Hgb (14.0 - 18.0 G/DL) 16.6 Hct (42 - 52 %) 48.7 MCV (80.0 - 94.0 FL) 85.4 MCH (27.0 - 31.0 PG) 29.0 MCHC (33.0 - 37.0 G/DL) 34.0 RDW (11.5 - 14.5 %) 14.4 Plt Count (130 - 400 /CUMM) 322 MPV (7.4 - 10.4 FL) 8.4 Gran % (42.2 - 75.2 %) 89.1 H Lymphocytes % (20.5 - 51.1 %) 4.4 L Monocytes % (1.7 - 9.3 %) 6.4 Eosinophils % (0 - 5 %) 0 Basophils % (0.0 - 2.0 %) 0.1 Absolute Granulocytes (1.4 - 6.5 /CUMM) 21.7 H Segmented Neutrophils (42.2 - 75.2 %) 81 H Band Neutrophils (0.0 - 5.0 %) 7 H Absolute Lymphocytes (1.2 - 3.4 /CUMM) 1.1 L Lymphocytes (20.5 - 51.1 %) 5 L Monocytes (1.7 - 9.3 %) 7 Absolute Monocytes (0.10 - 0.60 /CUMM) 1.6 H Absolute Eosinophils (0.0 - 0.7 /CUMM) 0 Absolute Basophils (0.0 - 0.2 /CUMM) 0 Platelet Estimate (ADEQUATE) ADEQUATE Normocytic RBCs VERIFIED Normochromic RBCs VERIFIED Schistocytes Miscellaneous Phlebotomy Draw Site RIGHT BRACHIAL Toxicology Serum Alcohol (<10 MG/DL) < 10.0 07/26 0704 Hematology Haptoglobin Pending Urines Ur Random Creatinine Cancelled U Random Total Protein Cancelled Ur Random Sodium Cancelled Ur Random Potassium Cancelled Fraction Sodium Excret Cancelled Imaging/Other Studies: PATIENT: NORM GRIFFIN PRESENT AGE: 47 PATIENT ACCOUNT NO: [id number] : 70 LOCATION: [facility] ORDERING PHYSICIAN: Lucius Damian MD SERVICE DATE: 07/26/17 EXAM TYPE: CAT - CT ABD & PELVIS W/O IV CONTRAS EXAMINATION: CT ABDOMEN AND PELVIS WITHOUT CONTRAST CLINICAL INFORMATION: Acute renal failure. COMPARISON: Abdominal CT April 2017. TECHNIQUE: Multidetector volumetric imaging was performed from the superior aspect of the liver through the pubic symphysis. Sagittal and coronal reformatted images were obtained on the technologist's workstation. FINDINGS: The lung bases are clear. Limited evaluation of the unenhanced liver, spleen, and adrenal glands reveals no definite abnormality. The gallbladder is decompressed and there are calculi within the gallbladder neck and cystic duct. No pericholecystic inflammatory changes. There is partial fatty atrophy of the pancreas. There is mild left-sided hydronephrosis that is improved in comparison to the prior exam. The dominant left renal calculus is now located within the left renal pelvis, measuring up to 1.7 cm in size with mean Hounsfield units of 380. This dominant calculus was previously in the left lower pole calyx where there is now an additional 1 cm calculus with mean Hounsfield units of 250. No radiopaque ureteral calculi. No right renal calculi. There is no right-sided hydronephrosis. There is intramural fat within the distal ileum and portions of the colon, a finding that can be seen as the sequela of inflammatory bowel disease. There is no evidence of active bowel inflammation. The large and small bowel are normal in caliber without evidence of mechanical obstruction. No focal inflammatory changes adjacent to the large or the small bowel. The appendix is normal. There is no free air and there is no intra-abdominal free fluid. No mesenteric or retroperitoneal adenopathy. There is a fat-containing right inguinal hernia which also contains a small portion of the bladder. No pelvic adenopathy. No free fluid within the pelvis. There are no acute osseous abnormalities. Bridging osteophytes within the partially imaged thoracic spine suggesting diffuse idiopathic skeletal hyperostosis. Mild lumbar spondylosis. IMPRESSION: - There is mild left-sided hydronephrosis that is improved in comparison to the prior exam. The dominant left renal calculus is now located within the left renal pelvis, measuring up to 1.7 cm in size with mean Hounsfield units of 380. This dominant calculus was previously located in a left lower pole calyx where there is now an additional 1 cm calculus with mean Hounsfield units of 250. - The gallbladder is decompressed and there are calculi within the gallbladder neck and cystic duct. No pericholecystic inflammatory changes. - There is intramural fat within the distal ileum and portions of the colon, a finding that can be seen as the sequela of inflammatory bowel disease. There is no evidence of active bowel inflammation. - There is a fat-containing right inguinal hernia which also contains a small portion of the bladder. This is stable. DICTATED BY: Jair Ovalle MD DATE/TIME DICTATED:07/26/17931 PIGGERY WORKER:MARCO A DATE/TIME TRANSCRIBED:07/26/17931 CONFIDENTIAL, DO NOT COPY WITHOUT APPROPRIATE AUTHORIZATION. <Electronically signed in Other Vendor System> SIGNED BY: Jair Ovalle MD 07/26/1706 PATIENT: NORM GRIFFIN PRESENT AGE: 47 PATIENT ACCOUNT NO: [id number] : 70 LOCATION: [facility] ORDERING PHYSICIAN: Berlin Garcia MD SERVICE DATE: 07/26/17 EXAM TYPE: US - US-RENAL/KIDNEY EXAMINATION: US RETROPERITONEAL COMPLETE (RENAL) CLINICAL INFORMATION: Acute renal insufficiency.. COMPARISON: CT abdomen and pelvis most recent prior dated 07/26/2017 TECHNIQUE: Real-time imaging of the kidneys and bladder. FINDINGS: RIGHT KIDNEY: 10.4 x 6.6 x 5.9 cm (SAG x AP x TRV). The kidney is normal in size, contour, and echogenicity. Renal cortical thickness is normal. No calculi or focal parenchymal lesions. No hydronephrosis. LEFT KIDNEY: 9.7 x 5.1 x 4.7 cm (SAG x AP x TRV). Normal contour. Slightly increased cortical echogenicity likely in keeping with underlying medical renal disease. Renal cortical thickness is normal. Calculus mid left kidney measuring approximately 1.6 cm. Calculus in the lower pole measuring approximately 2.2 cm. No gross hydronephrosis. BLADDER: Nondistended urinary bladder. Ureteric jets could not be distended during exam. Patient had recently voided.. IMPRESSION: 1. Moderate to large sized calculi noted in the mid and lower left kidney measuring approximately 1.6 cm and 2.2 cm respectively. No evidence of hydronephrosis or obstructive uropathy. 2. Unremarkable right kidney. 3. Mild increased cortical echogenicity left kidney likely in keeping with underlying medical renal disease. DICTATED BY: Justin Jiang MD DATE/TIME DICTATED:07/26/171041 PIGGERY WORKER:MARCO A DATE/TIME TRANSCRIBED:07/26/171041 CONFIDENTIAL, DO NOT COPY WITHOUT APPROPRIATE AUTHORIZATION. <Electronically signed in Other Vendor System> SIGNED BY: Justin Jiang MD 07/26/171048 Assessment/Plan Assessment/Recommendations Assessment: 1. Acute kidney injury. The most obvious issue here would be whether or not he has developed this due to the ingestion of Aleve. He is making urine. In spite of his rather dreadful looking set of electrolytes, as well as his elevated creatinine, he is remarkably asymptomatic with regards to remix symptomatology. He does have a mild degree of proteinuria and his fractional excretion of sodium is consistent with ATN. At this point, I suspect that this is a hemodynamic insult related to the Aleve. I do not think that this is interstitial nephritis related to the Aleve since the time course is too soon and classically, interstitial nephritis associated with nonsteroidal anti-inflammatory drugs, is often associated with nephrotic range proteinuria coupled with the glomerular lesion of minimal change disease. Also, cases where this has occurred, paradoxically the kidney function often is normal or only mildly impaired. He is not on any angiotensin-converting enzyme inhibitors. There is no history of any ingestions. His osmolalgap was -7. Unfortunately, the notes report only 75 mL of urine were removed with placement of the Schmitt. This would argue against obstruction causing or contributing to his acute kidney injury. It is tempting to consider a serum immunoelectrophoresis since he is presenting with acute kidney injury. However, the only time he has bone pain is with the episode of trauma. If he was presenting with diffuse bone pain, it would be expected to see either hypercalcemia or normocalcemia given his level of renal failure. His CPK is 1250 so I do not think that rhabdomyolysis is playing a role here. One would have to invoke a CK greater than 10,002 or 3 days ago leading to acute kidney injury. Given the fact he is giving the history of Aleve use, I do not think pursuing serologic workup is appropriate at this time. 2. Metabolic acidosis. Currently is on a bicarbonate drip. His calcium is low however he is profoundly hyperphosphatemic. Would continue the IV bicarbonate until his bicarbonate is greater than 10 perhaps even up to 15. In addition, would start sodium bicarbonate tablets. 3. Hypocalcemia. Actually this is tied to his renal failure coupled with his profound hyperphosphatemia. Given his phosphorus of 13.5, IV calcium is not indicated. Instead, would begin calcium carbonate 3 1250 mg tablets with each meal. 4. Hyperphosphatemia. This is worrisome that this is not an acute process attributable to the use of Aleve. Hyperphosphatemia would point more towards a chronic process. However, this still may be the case that this is acute kidney injury. 5. History of urolithiasis. The type of stones is not yet known. He is not had a 24-hour urine for stone risk profile. His stones are never Should for analysis. It is observed that his parathyroid hormone level is elevated. This can elevate actually fairly rapidly in episodes of acute kidney injury. However , given his history of stones, the other thought would be whether or not he has primary hyperparathyroidism leading to stone formation. This of course would be even higher given the fact he is acute kidney injury. Recommendations: 1. I do not see any urgent dialytic need today. In fact, he looks remarkably well. Again, with some of these numbers being more consistent with chronic kidney disease, his seeming clinical stability is actually vaguely concerning. For the time being I would continue the IV bicarbonate until his total CO2 is greater than 10 while beginning by mouth bicarbonate 3-4 times a day specifically to 650 mg tablets at the above-mentioned dose. 2. As noted, would use calcium carbonate 1250 mg 3 tabs with each meal. 3. Please make sure that a PT/PTT are on the chart. 4. Would keep him nothing by mouth after midnight until a decision with regards to renal replacement therapy can be made. It is hoped, that his serum creatinine will start to go down. 5. Would check a hepatitis B surface antigen and surface antibody. This is in anticipation of a dialysis need.
[2017-07-26 16:00] VITALS: BP 152/80
[2017-07-27] VITALS: BP 150/60
[2017-07-27 06:38] LABS: ABSOLUTE BASOPHIL COUNT 0 /CUMM (0.0-0.2); ABSOLUTE EOSINOPHIL COUNT 0 /CUMM (0.0-0.7); ABSOLUTE LYMPH COUNT 0.6 /CUMM (1.2-3.4); ABSOLUTE MONOCYTE COUNT 1.3 /CUMM (0.10-0.60); BASOPHIL % 0.1 % (0.0-2.0); EOSINOPHIL % 0 % (0-5); MEAN CORPUSCULAR HGB 28.5 PG (27.0-31.0); MEAN CORPUSCULAR HGB CONC 34.1 G/DL (33.0-37.0); MEAN CORPUSCULAR VOLUME 83.5 FL (80.0-94.0); MEAN PLATELET VOLUME 7.7 FL (7.4-10.4); PLATELET COUNT 235 /CUMM (130-400); RBC DISTRIBUTION WIDTH 14.3 % (11.5-14.5); RED BLOOD CELL CT 4.99 /CUMM (4.70-6.10)
[2017-07-27 06:41] LABS: HEMATOCRIT 41.7 % (42-52); WHITE BLOOD CELL COUNT 11.9 /CUMM (4.8-10.8)
[2017-07-27 08:00] VITALS: BP 142/76
--- NOTE | 2017-07-27 08:10 | PN- Resident CRCU ---
Subjective HPI/CRCU Issues: No acute events overnight. Patient awaiting for jose m cath for dialysis today. Complains of gas in abd. 24 Hour Events: Tmax 97.9 Heart rate 06537 Respiratory rate 1820 Blood pressure 374944/7090 [id number] percent oxygen saturation on room air In 4338 Out 850 Objective Vital Signs & I&O Last 8 Hrs of Vitals and I&O: Laboratory Tests 07/27/17 0835: pH 7.28 *L, pCO2 16 L, pO2 134 H, HCO3 7 L, ABG O2 Sat (Measured) 97.0, P-50 (Temp Corrected) N, Carboxyhemoglobin 0.5 L, O2 Concentration % .21, Temperature 98.0, O2 Delivery Method RA, Phlebotomy Draw Site RIGHT RADIAL 07/27/17 0530: Anion Gap 25 H, Estimated GFR 6 L, Glucose 77, Lactic Acid 1.0, Calcium 5.3 *L , Phosphorus 9.5 H, Magnesium 1.7, Total Bilirubin 1.8 H, Direct Bilirubin 1.7 H, AST 41, ALT 47, Alkaline Phosphatase 88, Creatine Kinase 1236 H, C-Reactive Prot, Quant 6.5 H, Total Protein 5.9 L, Albumin 3.2 L, CBC w Diff MAN DIFF ORDERED, RBC 4.99, MCV 83.5, MCH 28.5, MCHC 34.1, RDW 14.3, MPV 7.7, Gran % 84.0 H, Lymphocytes % 5.0 L, Monocytes % 10.9 H, Eosinophils % 0, Basophils % 0.1, Absolute Granulocytes 10.0 H, Segmented Neutrophils 78 H, Band Neutrophils 1, Absolute Lymphocytes 0.6 L, Lymphocytes 10 L, Monocytes 11 H, Absolute Monocytes 1.3 H, Absolute Eosinophils 0, Absolute Basophils 0, Platelet Estimate ADEQUATE, Polychromasia 1+, Poikilocytosis 2+, Ovalocytes 1+, Gray Cells 1+, Fld Total RBCs Counted 100 07/26/17 2020: Anion Gap 26 H, Estimated GFR 7 L, Glucose 85, Calcium 5.5 *L, Phosphorus 9.7 H, Magnesium 1.8, Total Bilirubin 1.9 H, AST 41, ALT 41, Creatine Kinase 1205 H, Albumin 3.2 L 07/26/17 1450: Sodium Cancelled, Potassium Cancelled, Chloride Cancelled, Carbon Dioxide Cancelled, Anion Gap Cancelled, BUN Cancelled, Creatinine Cancelled, Glucose Cancelled, Calcium Cancelled, Phosphorus Cancelled, Magnesium Cancelled, Total Bilirubin Cancelled, AST Cancelled, ALT Cancelled, Albumin Cancelled 07/26/17 1448: Calcium Cancelled 07/26/17 1338: Hepatitis A IgM Ab Cancelled, Hep Bs Antigen Cancelled, Hep B Core IgM Ab Conf Cancelled, Hepatitis C Antibody Cancelled 07/26/17 1338: Anion Gap 30 H, Estimated GFR 7 L, Glucose 101 H, Uric Acid 10.4 H, Calcium 5.8 *L, Phosphorus 10.3 H, Magnesium 1.0 L, Total Bilirubin 2.1 H, AST 44, ALT 41, Albumin 3.5, Hepatitis A IgM Ab NONREACTIVE, Hep Bs Antigen NONREACTIVE, Hep B Core IgM Ab Conf NONREACTIVE, Hepatitis C Antibody NONREACTIVE Vital Signs Date Time Temp Pulse Resp B/P B/P Pulse O2 O2 Flow FiO2 Mean Ox Delivery Rate 07/27 0800 98.0 88 18 142/76 99 Room Air 07/27 0400 97 Room Air 07/27 0000 97.9 90 20 150/60 97 Room Air 07/27 0000 97 Room Air 07/26 1600 97.5 102 18 152/80 98 Room Air Intake & Output 07/27 1600 07/27 0800 07/27 0000 Intake Total 650 2305 Output Total 360 290 Balance 290 2015 Intake, IV 600 925 Intake, Oral 50 1380 Number 2 4 Bowel Movements Output, Urine 360 290 Exam General Appearance: no apparent distress, alert, awake Respiratory: normal breath sounds Cardiovascular: regular rate/rhythm Gastrointestinal: soft, non-tender, distended, decreased bowel sounds Extremities: 2+ radial pulses, no LE edema Current Medications: Current Medications Sig/Derrick Start time Last Medication Dose Route Stop Time Status Admin Calcium Carbonate 3,750 MG TIDAC 07/26 1345 AC 07/26 PO 1833 Fentanyl Citrate 0 .STK-MED ONE 07/27 1149 DC .ROUTE Heparin Sodium 5,000 UNIT Q8 07/27 1400 AC (Porcine) SC Heparin Sodium 0 .STK-MED ONE 07/27 1059 DC (Porcine) IV Heparin Sodium 5,000 UNIT Q8 07/26 1441 DC 07/26 (Porcine) SC 2116 Lidocaine 0 .STK-MED ONE 07/27 1059 DC .ROUTE Lidocaine/Epinephrine 0 .STK-MED ONE 07/27 1059 DC .ROUTE Magnesium Sulfate 1 GM Q2H 07/26 1615 DC 07/26 Dextrose/Water 100 ML IV 07/26 2013 1809 Midazolam HCl 0 .STK-MED ONE 07/27 1149 DC .ROUTE Omeprazole 40 MG DAILY AC 07/26 1500 AC 07/26 PO 1630 Pantoprazole Sodium 40 MG DAILY 07/26 1441 DC IV Potassium Chloride 20 MEQ ONCE ONE 07/26 2300 DC 07/26 PO 07/26 2301 2357 Potassium Chloride 10 MEQ Q1H 07/26 2145 DC 07/26 IV 07/26 2246 2212 Potassium Chloride 40 MEQ ONCE ONE 07/26 2145 DC 07/26 PO 07/26 2146 2205 Potassium Chloride 20 MEQ ONCE ONE 07/26 1630 DC 07/26 PO 07/26 1631 1630 Sodium Bicarbonate 650 MG TID 07/27 0900 AC PO Sodium Bicarbonate 150 MEQ Q8H 07/26 1645 DC 07/26 Dextrose/Water 1,000 ML IV 1706 Sodium Bicarbonate 150 MEQ Q8H 07/26 1445 CAN Dextrose/Water 1,000 ML IV Sodium Bicarbonate 325 MG TID 07/26 1400 DC PO Sodium Bicarbonate 650 MG TID 07/26 1400 DC 07/26 PO 1418 Sodium Chloride 1,000 ML Q13H 07/26 2145 AC 07/26 IV 2206 Impression/Plan Impression/Problem List Impression: A: 47 YO M with PMH significant for Urinary bladder stones, Nephrolithiasis with multiple stone removals by (last ) presented to [facility] with muscle spasms all over the body after taking around 12 pills of Naproxen 200mg pills last sunday found to be in acute renal failure. Problems: #Acute renal failure secondary to naprexen/nsaid overuse in the setting of improving hydronephrosis with possible underlying CKD Initial labs: Sodium 131, potassium 4.1, chloride 91, bicarbonate 6, BUN 45, creatinine 7.0, lactic acid 3.3, calcium 6.7, phosphorus 13.5, magnesium 1.0, anion gap 34, vit D 5.2, PTH elevated 466.8 Initial ABG: PH 7.24, PCO2 16, PO2 131, bicarbonate 6.6, room air Urine studies: osm 307, random creatinine 141.3, random protein 85, sodium 90, written potassium 11.5, protein/creatinine ratio 0.6, FeNa 3.4 The patient was started on a sodium bicarbonate drip with concurrent by mouth sodium bicarbonate until the bicarbonate was greater than 10 and the patient was switched off bicarbonate drip. The patient was also started on calcium carbonate for replenishment. The patient got an jose m-cath for dialysis. Renal ultrsound revealed moderate to large sized calculi noted in the mid and lower left kidney measuring approximately 1.6 cm and 2.2 cm respectively. No evidence of hydronephrosis or obstructive uropathy. Mild increased cortical echogenicity left kidney likely in keeping with underlying medical renal disease. However Ct abd revealed mild left-sided hydronephrosis that is improved. Left renal calculus is now located within the left renal pelvis an additional 1 cm calculus. Current labs: Sodium 120, potassium 3.1, chloride 93, bicarbonate 11, anion gap 25, BUN 66, creatinine 9.4, lactic acid 1.0 (resolved), calcium 5.3, phosphorus 9.5, magnesium 1.7 CRP 6.5 -cont sodium bicarb, calcium carbonate -will be getting dialysis after jose m cath placement -f/u nephrology reocmmendations, replenish lytes per neprho -f/u total 24 hr protein -elevated PTH may be 2/2 renal insufficiency but primary hyperparathyroid needs to be ruled out in the future -consider urology consult again #Hypocalcemia with hyperphosphatemia 2/2 ARF / CKD Initial calcium 6.7, phosphorus 13.5 Current calcium 5.3, phosphorus 9.5 -cont sodium bicarb, calcium carbonate as stated above #Elevated bilirubin with decompressed gallbladder and calculi within the gallbladder neck and cystic duct CT abd revealed the gallbladder is decompressed and there are calculi within the gallbladder neck and cystic duct. No pericholecystic inflammatory changes. Initial LFTs: AST 41, ALT 39, ALP 109, total bili 2.6, direct bili 2.5 Current LFTs improving: ALT 41, ALP 47, ALP 88, total bili 1., direct bili 1.7 -cont monitoring LFT #Myopathy with elevated CPK Initial creatinine :1265 Current creatinine kinase :1236 -follow CPK, cont IVF #elevated uric acid Uric acid 10.2 No signs of gout -consider xanthine oxidase inhibitor (febuxostat/allopurniol) -cont to monitor #leukocytosis Wbc 24.4 -> 11.9 Most likely reactive as patient has been afebrile -cont to monitor #CT imaging findings 1. Intramural fat within the distal ileum and portions of the colon probably a sequelae of inflammatory bowel disease versus other issues. 2. Fat-containing right inguinal hernia which also contains a small portion of the bladder. -outpatient follow up #House keeping FULL CODE Renal dialysis diet after jose m cath placement Jose M cath DVT prophylaxis heparin subq CARREON Problem List: 1. Elevated CK 2. Leukocytosis 3. Hypocalcemia 4. ARF (acute renal failure) 5. Elevated blood uric acid level 6. Myopathy 7. High phosphate levels 8. Hernia Pain Ratin Tomorrow's Labs & Rationales: nephritis work up icu bundle cbc Plan DVT/Prophylaxis: heparin drip
--- NOTE | 2017-07-27 09:04 | PN- Nephrology ---
Assessment/Plan Nephrology Assessment: 1. Acute kidney injury. He is made between 500-800 mL of urine in spite of getting in excess of 4.5 L. His creatinine continues to climb. He denies any nausea, vomiting, just using but is complaining of needing to get up and walk because of lower extremity cramps. I am not optimistic that he is going to avoid dialytic intervention even with waiting another day. In fact, he may be showing some signs of uremia. 2. Metabolic acidosis. His metabolic acidosis is a bit better with the bicarbonate drip and tablets. Definitively correcting this will involve simply dialysis. 3. Hypocalcemia. Even with at least partial correction of Schmitt hyperphosphatemia, his calcium if anything is lower than yesterday. 4. Hyperphosphatemia. He is currently on calcium carbonate as a binder. Dialysis is generally ineffective in removing phosphorous unless it is performed in excess of 6 hours. Nonetheless, he may achieve better phosphorus control simply with starting dialysis. 5. History of urolithiasis. 6. Chronic kidney disease? Apparently his creatinine was 1.4 in August 2016. Aside from his stones, he is not had any issues mandating medical attention Suggestion: 1. Discussed with patient and . I think that dialysis should be initiated this afternoon. 2. It may be helpful to obtain serologic studies with dialysis today. 3. Continue with strict I's and O's and daily weights 4. He has been kept nothing by mouth in anticipation of placement of the catheter. IR has been contacted by the house staff for this to occur. 5. He will be dialyzed today and then again tomorrow and likely again on Sunday. Subjective Subjective: Patient is up walking around because of cramping in his legs. He denies any nausea, shortness of breath, vomiting or dysgeusia. Objective Vital Signs and I&Os Vital Signs Date Time Temp Pulse Resp B/P B/P Pulse O2 O2 Flow FiO2 Mean Ox Delivery Rate 07/27 0800 98.0 88 18 142/76 99 Room Air 07/27 0400 97 Room Air 07/27 0000 97.9 90 20 150/60 97 Room Air 07/27 0000 97 Room Air 07/26 1600 97.5 102 18 152/80 98 Room Air 07/26 1230 97.4 100 20 158/86 96 Room Air 07/26 1200 98.0 62 20 148/79 98 07/26 1035 98.0 99 22 170/86 98 Room Air Intake & Output 07/27 1600 07/27 0400 07/26 1600 07/26 0400 07/25 1600 07/25 0400 Intake Total 650 2305 2333 Output Total 360 290 275 Balance 290 2014 2057 Intake, IV 569 804 4645 Intake, Oral 50 1380 960 Number 2 4 2 Bowel Movements Output, Urine 360 290 275 Patient 160 lb Weight Weight Reported by Patient Measurement Method Physical Exam General Appearance: no apparent distress, alert, awake, anxious, comfortable Head: atraumatic Ears, Nose, Throat: normal pharynx, normal ENT inspection, hearing grossly normal Neck: normal inspection, trachea mid line Respiratory: normal breath sounds, chest non-tender, no respiratory distress, lungs clear Cardiovascular: regular rate/rhythm, no rub Abdomen: normal bowel sounds, soft, non-tender, No bruit Neurologic/Psychiatric: no motor/sensory deficits, awake, alert, oriented x 3, normal gait, no asterixis Skin: intact, normal color, warm/dry Reproductive: Schmitt catheter in place Current Medications: Current Medications Sig/Derrick Start time Last Medication Dose Route Stop Time Status Admin Calcium Carbonate 3,750 MG TIDAC 07/26 1345 AC 07/26 PO 1833 Heparin Sodium 5,000 UNIT Q8 07/26 1441 DC 07/26 (Porcine) SC 2116 Magnesium Sulfate 1 GM Q2H 07/26 1615 DC 07/26 Dextrose/Water 100 ML IV 07/26 2013 1809 Omeprazole 40 MG DAILY AC 07/26 1500 AC 07/26 PO 1630 Pantoprazole Sodium 40 MG DAILY 07/26 1441 DC IV Potassium Chloride 20 MEQ ONCE ONE 07/26 2300 DC 07/26 PO 07/26 2301 2357 Potassium Chloride 10 MEQ Q1H 07/26 2145 DC 07/26 IV 07/26 2246 2212 Potassium Chloride 40 MEQ ONCE ONE 07/26 2145 DC 07/26 PO 07/26 2146 2205 Potassium Chloride 20 MEQ ONCE ONE 07/26 1630 DC 07/26 PO 07/26 1631 1630 Sodium Bicarbonate 650 MG TID 07/27 0900 AC PO Sodium Bicarbonate 150 MEQ Q8H 07/26 1645 DC 07/26 Dextrose/Water 1,000 ML IV 1706 Sodium Bicarbonate 150 MEQ Q8H 07/26 1445 CAN Dextrose/Water 1,000 ML IV Sodium Bicarbonate 325 MG TID 07/26 1400 DC PO Sodium Bicarbonate 650 MG TID 07/26 1400 DC 07/26 PO 1418 Sodium Bicarbonate 150 MEQ Q8H 07/26 0900 DC 07/26 Dextrose/Water 1,000 ML IV 0945 Sodium Chloride 1,000 ML Q13H 07/26 2145 AC 07/26 IV 2206 Results Pertinent Lab Results: Laboratory Tests 07/27 07/27 0835 0530 Blood Gas pH (7.35 - 7.45 PH) 7.28 *L pCO2 (35 - 45 TORR) 16 L pO2 (80 - 100 TORR) 134 H HCO3 (21 - 28 MEQ/L) 7 L ABG O2 Sat (Measured) (>96.0 %) 97.0 P-50 (Temp Corrected) N Carboxyhemoglobin (1.5 - 5.0 %) 0.5 L O2 Concentration % .21 Temperature (97.0 - 100.0 FARH) 98.0 O2 Delivery Method RA Chemistry Sodium (137 - 145 mmol/L) 128 L Potassium (3.5 - 5.1 mmol/L) 3.1 L Chloride (98 - 107 mmol/L) 93 L Carbon Dioxide (22 - 30 mmol/L) 11 L Anion Gap (5 - 16) 25 H BUN (9 - 20 mg/dL) 66 H Creatinine (0.7 - 1.2 mg/dL) 9.4 *H Estimated GFR (>60 ml/min) 6 L Glucose (65 - 99 mg/dL) 77 Lactic Acid (0.7 - 2.1 mmol/L) 1.0 Calcium (8.4 - 10.2 mg/dL) 5.3 *L Phosphorus (2.5 - 4.5 mg/dL) 9.5 H Magnesium (1.6 - 2.3 mg/dL) 1.7 Total Bilirubin (0.2 - 1.3 mg/dL) 1.8 H Direct Bilirubin (< 0.4 mg/dL) 1.7 H AST (17 - 59 U/L) 41 ALT (21 - 72 U/L) 47 Alkaline Phosphatase (< 127 U/L) 88 Creatine Kinase (55 - 170 U/L) 1236 H C-Reactive Prot, Quant (<1.0 mg/dL) 6.5 H Total Protein (6.3 - 8.2 g/dL) 5.9 L Albumin (3.5 - 5.0 g/dL) 3.2 L Hematology CBC w Diff MAN DIFF ORDERED WBC (4.8 - 10.8 /CUMM) 11.9 H RBC (4.70 - 6.10 /CUMM) 4.99 Hgb (14.0 - 18.0 G/DL) 14.2 Hct (42 - 52 %) 41.7 L MCV (80.0 - 94.0 FL) 83.5 MCH (27.0 - 31.0 PG) 28.5 MCHC (33.0 - 37.0 G/DL) 34.1 RDW (11.5 - 14.5 %) 14.3 Plt Count (130 - 400 /CUMM) 235 MPV (7.4 - 10.4 FL) 7.7 Gran % (42.2 - 75.2 %) 84.0 H Lymphocytes % (20.5 - 51.1 %) 5.0 L Monocytes % (1.7 - 9.3 %) 10.9 H Eosinophils % (0 - 5 %) 0 Basophils % (0.0 - 2.0 %) 0.1 Absolute Granulocytes (1.4 - 6.5 /CUMM) 10.0 H Segmented Neutrophils (42.2 - 75.2 %) 78 H Band Neutrophils (0.0 - 5.0 %) 1 Absolute Lymphocytes (1.2 - 3.4 /CUMM) 0.6 L Lymphocytes (20.5 - 51.1 %) 10 L Monocytes (1.7 - 9.3 %) 11 H Absolute Monocytes (0.10 - 0.60 /CUMM) 1.3 H Absolute Eosinophils (0.0 - 0.7 /CUMM) 0 Absolute Basophils (0.0 - 0.2 /CUMM) 0 Platelet Estimate (ADEQUATE) ADEQUATE Polychromasia 1+ Poikilocytosis 2+ Ovalocytes 1+ Andrei Cells 1+ Miscellaneous Phlebotomy Draw Site RIGHT RADIAL Other Body Source Fld Total RBCs Counted (%) 100 07/26 1450 1448 1338 Chemistry Sodium (137 - 145 mmol/L) 126 L Cancelled Potassium (3.5 - 5.1 mmol/L) 2.9 *L Cancelled Chloride (98 - 107 mmol/L) 89 L Cancelled Carbon Dioxide (22 - 30 mmol/L) 11 L Cancelled Anion Gap (5 - 16) 26 H Cancelled BUN (9 - 20 mg/dL) 59 H Cancelled Creatinine (0.7 - 1.2 mg/dL) 8.8 *H Cancelled Estimated GFR (>60 ml/min) 7 L Glucose (65 - 99 mg/dL) 85 Cancelled Calcium (8.4 - 10.2 mg/dL) 5.5 *L Cancelled Cancelled Phosphorus (2.5 - 4.5 mg/dL) 9.7 H Cancelled Magnesium (1.6 - 2.3 mg/dL) 1.8 Cancelled Total Bilirubin (0.2 - 1.3 mg/dL) 1.9 H Cancelled AST (17 - 59 U/L) 41 Cancelled ALT (21 - 72 U/L) 41 Cancelled Creatine Kinase (55 - 170 U/L) 1205 H Albumin (3.5 - 5.0 g/dL) 3.2 L Cancelled Serology Hepatitis A IgM Ab Cancelled Hep Bs Antigen Cancelled Hep B Core IgM Ab Conf Cancelled Hepatitis C Antibody Cancelled 07/26 07/26 07/26 1338 1015 1015 Chemistry Sodium (137 - 145 mmol/L) 129 L Potassium (3.5 - 5.1 mmol/L) 3.4 L Chloride (98 - 107 mmol/L) 92 L Carbon Dioxide (22 - 30 mmol/L) 7 *L Anion Gap (5 - 16) 30 H BUN (9 - 20 mg/dL) 53 H Creatinine (0.7 - 1.2 mg/dL) 8.8 *H Estimated GFR (>60 ml/min) 7 L Glucose (65 - 99 mg/dL) 101 H Uric Acid (3.5 - 8.5 mg/dL) 10.4 H Calcium (8.4 - 10.2 mg/dL) 5.8 *L Phosphorus (2.5 - 4.5 mg/dL) 10.3 H Magnesium (1.6 - 2.3 mg/dL) 1.0 L Total Bilirubin (0.2 - 1.3 mg/dL) 2.1 H AST (17 - 59 U/L) 44 ALT (21 - 72 U/L) 41 Albumin (3.5 - 5.0 g/dL) 3.5 Serology Hepatitis A IgM Ab (NONREACTIVE) NONREACTIVE Hep Bs Antigen (NONREACTIVE) NONREACTIVE Hep B Core IgM Ab Conf (NONREACTIVE) NONREACTIVE Hepatitis C Antibody (NONREACTIVE) NONREACTIVE Toxicology Urine Opiates Screen (>2000 NG/ML) < 100 Methadone Screen (>300 NG/ML) < 40 Barbiturate Screen (>200 NG/ML) < 60 Ur Phencyclidine Scrn (>25 NG/ML) < 6.00 Amphetamines Screen (>1000 NG/ML) < 100 U Benzodiazepines Scrn (>200 NG/ML) < 85 Urine Cocaine Screen (>300 NG/ML) < 50 Urine Cannabis Screen (>50 NG/ML) < 5.00 Urines Urinalysis MANY H Urine Color (YEL,AMB,STR) YEL Urine Clarity (CLEAR) HAZY H Urine pH (5.0 - 8.0) 6.0 Ur Specific [place] (1.001 - 1.035) 1.025 Urine Protein (NEG,<30 MG/DL) 100 H Urine Ketones (NEG) NEG Urine Nitrite (NEG) NEG Urine Bilirubin (NEG) NEG Urine Urobilinogen (0.1 - 1.0 EU/dl) 0.2 Ur Leukocyte Esterase (NEG) TRACE H Ur Microscopic SEDIMENT EXAMINED Urine RBC (0 - 5 /HPF) PACKD H Urine WBC (0 - 2 /HPF) RARE Ur Epithelial Cells (NONE,FEW) FEW Urine Bacteria (NEG/NONE) FEW H Urine Hemoglobin (NEG) LARGE H Urine Osmolality (300 - 1000 MOSM/KG) 307 Ur Random Creatinine (mg/dL) 141.3 U Random Total Protein (0 - 12 mg/dL) 85 H Ur Random Sodium (30 - 90 mmol/L) 90 Ur Random Potassium (mmol/L) 11.5 Protein/Creatinin Ratio (< 0.2) 0.6 H Fraction Sodium Excret (<1% %) 3.4 H Urine Glucose (N MG/DL) NEG 07/26 07/26 UNK 0920 Blood Gas pH (7.35 - 7.45 PH) 7.24 *L pCO2 (35 - 45 TORR) 16 L pO2 (80 - 100 TORR) 131 H HCO3 (21 - 28 MEQ/L) 6.6 L ABG O2 Sat (Measured) (>96.0 %) 98.0 Carboxyhemoglobin (1.5 - 5.0 %) 0.2 L O2 Concentration % 21 O2 Delivery Method RA Chemistry Sodium Cancelled Potassium Cancelled Chloride Cancelled Carbon Dioxide Cancelled Anion Gap Cancelled BUN Cancelled Creatinine Cancelled Glucose Cancelled Calcium Cancelled Phosphorus Cancelled Magnesium Cancelled Total Bilirubin Cancelled AST Cancelled ALT Cancelled Albumin Cancelled Miscellaneous Phlebotomy Draw Site RIGHT BRACHIAL 07/26 07/26 5061 0751 Chemistry Sodium (137 - 145 mmol/L) 131 L Potassium (3.5 - 5.1 mmol/L) 4.1 Chloride (98 - 107 mmol/L) 91 L Carbon Dioxide (22 - 30 mmol/L) 6 *L Anion Gap (5 - 16) 34 H BUN (9 - 20 mg/dL) 45 H Creatinine (0.7 - 1.2 mg/dL) 7.0 *H Estimated GFR (>60 ml/min) 8 L BUN/Creatinine Ratio (7 - 25 %) 6.4 L Glucose (65 - 99 mg/dL) 126 H Serum Osmolality (285 - 295 MOSM/KG) 278 L Lactic Acid (0.7 - 2.1 mmol/L) 3.3 H Calcium (8.4 - 10.2 mg/dL) 6.7 L Phosphorus (2.5 - 4.5 mg/dL) 13.5 H Total Bilirubin (0.2 - 1.3 mg/dL) 2.6 H Direct Bilirubin (< 0.4 mg/dL) 2.5 H AST (17 - 59 U/L) 46 ALT (21 - 72 U/L) 39 Alkaline Phosphatase (< 127 U/L) 109 Creatine Kinase (55 - 170 U/L) 1265 H Troponin I (<0.11 ng/ml) 0.02 Total Protein (6.3 - 8.2 g/dL) 7.0 Albumin (3.5 - 5.0 g/dL) 4.0 Globulin (1.9 - 4.2 gm/dL) 3.0 Albumin/Globulin Ratio (1.1 - 2.2 %) 1.3 25-OH Vitamin D Total (30 - 100 ng/ml) 5.2 L PTH Intact (18.4 - 80.1 pg/ML) 466.8 H Coagulation PT (9.4 - 12.5 SEC) 13.6 H INR (0.90 - 1.17) 1.24 H APTT (25 - 37 SEC) 32 Hematology CBC w Diff MAN DIFF ORDERED WBC (4.8 - 10.8 /CUMM) 24.4 H RBC (4.70 - 6.10 /CUMM) 5.71 Hgb (14.0 - 18.0 G/DL) 16.6 Hct (42 - 52 %) 48.7 MCV (80.0 - 94.0 FL) 85.4 MCH (27.0 - 31.0 PG) 29.0 MCHC (33.0 - 37.0 G/DL) 34.0 RDW (11.5 - 14.5 %) 14.4 Plt Count (130 - 400 /CUMM) 322 MPV (7.4 - 10.4 FL) 8.4 Gran % (42.2 - 75.2 %) 89.1 H Lymphocytes % (20.5 - 51.1 %) 4.4 L Monocytes % (1.7 - 9.3 %) 6.4 Eosinophils % (0 - 5 %) 0 Basophils % (0.0 - 2.0 %) 0.1 Absolute Granulocytes (1.4 - 6.5 /CUMM) 21.7 H Segmented Neutrophils (42.2 - 75.2 %) 81 H Band Neutrophils (0.0 - 5.0 %) 7 H Absolute Lymphocytes (1.2 - 3.4 /CUMM) 1.1 L Lymphocytes (20.5 - 51.1 %) 5 L Monocytes (1.7 - 9.3 %) 7 Absolute Monocytes (0.10 - 0.60 /CUMM) 1.6 H Absolute Eosinophils (0.0 - 0.7 /CUMM) 0 Absolute Basophils (0.0 - 0.2 /CUMM) 0 Platelet Estimate (ADEQUATE) ADEQUATE Normocytic RBCs VERIFIED Normochromic RBCs VERIFIED Schistocytes Haptoglobin Pending Toxicology Serum Alcohol (<10 MG/DL) < 10.0 Acetone Level (NEGATIVE) NEGATIVE Urines Ur Random Creatinine Cancelled U Random Total Protein Cancelled Ur Random Sodium Cancelled Ur Random Potassium Cancelled Fraction Sodium Excret Cancelled
--- NOTE | 2017-07-27 09:25 | PN- CRCU ---
Subjective HPI/Critical Care Issues: Doing about the same and creatinine is worsening Still has muscle cramps Pending dialysis Laboratory Tests 07/27 07/27 0835 0530 Blood Gas pH (7.35 - 7.45 PH) 7.28 *L pCO2 (35 - 45 TORR) 16 L pO2 (80 - 100 TORR) 134 H HCO3 (21 - 28 MEQ/L) 7 L ABG O2 Sat (Measured) (>96.0 %) 97.0 P-50 (Temp Corrected) N Carboxyhemoglobin (1.5 - 5.0 %) 0.5 L O2 Concentration % .21 Temperature (97.0 - 100.0 FARH) 98.0 O2 Delivery Method RA Chemistry Sodium (137 - 145 mmol/L) 128 L Potassium (3.5 - 5.1 mmol/L) 3.1 L Chloride (98 - 107 mmol/L) 93 L Carbon Dioxide (22 - 30 mmol/L) 11 L Anion Gap (5 - 16) 25 H BUN (9 - 20 mg/dL) 66 H Creatinine (0.7 - 1.2 mg/dL) 9.4 *H Estimated GFR (>60 ml/min) 6 L Glucose (65 - 99 mg/dL) 77 Lactic Acid (0.7 - 2.1 mmol/L) 1.0 Calcium (8.4 - 10.2 mg/dL) 5.3 *L Phosphorus (2.5 - 4.5 mg/dL) 9.5 H Magnesium (1.6 - 2.3 mg/dL) 1.7 Total Bilirubin (0.2 - 1.3 mg/dL) 1.8 H Direct Bilirubin (< 0.4 mg/dL) 1.7 H AST (17 - 59 U/L) 41 ALT (21 - 72 U/L) 47 Alkaline Phosphatase (< 127 U/L) 88 Creatine Kinase (55 - 170 U/L) 1236 H C-Reactive Prot, Quant (<1.0 mg/dL) 6.5 H Total Protein (6.3 - 8.2 g/dL) 5.9 L Albumin (3.5 - 5.0 g/dL) 3.2 L Hematology CBC w Diff MAN DIFF ORDERED WBC (4.8 - 10.8 /CUMM) 11.9 H RBC (4.70 - 6.10 /CUMM) 4.99 Hgb (14.0 - 18.0 G/DL) 14.2 Hct (42 - 52 %) 41.7 L MCV (80.0 - 94.0 FL) 83.5 MCH (27.0 - 31.0 PG) 28.5 MCHC (33.0 - 37.0 G/DL) 34.1 RDW (11.5 - 14.5 %) 14.3 Plt Count (130 - 400 /CUMM) 235 MPV (7.4 - 10.4 FL) 7.7 Gran % (42.2 - 75.2 %) 84.0 H Lymphocytes % (20.5 - 51.1 %) 5.0 L Monocytes % (1.7 - 9.3 %) 10.9 H Eosinophils % (0 - 5 %) 0 Basophils % (0.0 - 2.0 %) 0.1 Absolute Granulocytes (1.4 - 6.5 /CUMM) 10.0 H Segmented Neutrophils (42.2 - 75.2 %) 78 H Band Neutrophils (0.0 - 5.0 %) 1 Absolute Lymphocytes (1.2 - 3.4 /CUMM) 0.6 L Lymphocytes (20.5 - 51.1 %) 10 L Monocytes (1.7 - 9.3 %) 11 H Absolute Monocytes (0.10 - 0.60 /CUMM) 1.3 H Absolute Eosinophils (0.0 - 0.7 /CUMM) 0 Absolute Basophils (0.0 - 0.2 /CUMM) 0 Platelet Estimate (ADEQUATE) ADEQUATE Polychromasia 1+ Poikilocytosis 2+ Ovalocytes 1+ Sasser Cells 1+ Miscellaneous Phlebotomy Draw Site RIGHT RADIAL Other Body Source Fld Total RBCs Counted (%) 100 07/26 1450 1448 1338 Chemistry Sodium (137 - 145 mmol/L) 126 L Cancelled Potassium (3.5 - 5.1 mmol/L) 2.9 *L Cancelled Chloride (98 - 107 mmol/L) 89 L Cancelled Carbon Dioxide (22 - 30 mmol/L) 11 L Cancelled Anion Gap (5 - 16) 26 H Cancelled BUN (9 - 20 mg/dL) 59 H Cancelled Creatinine (0.7 - 1.2 mg/dL) 8.8 *H Cancelled Estimated GFR (>60 ml/min) 7 L Glucose (65 - 99 mg/dL) 85 Cancelled Calcium (8.4 - 10.2 mg/dL) 5.5 *L Cancelled Cancelled Phosphorus (2.5 - 4.5 mg/dL) 9.7 H Cancelled Magnesium (1.6 - 2.3 mg/dL) 1.8 Cancelled Total Bilirubin (0.2 - 1.3 mg/dL) 1.9 H Cancelled AST (17 - 59 U/L) 41 Cancelled ALT (21 - 72 U/L) 41 Cancelled Creatine Kinase (55 - 170 U/L) 1205 H Albumin (3.5 - 5.0 g/dL) 3.2 L Cancelled Serology Hepatitis A IgM Ab Cancelled Hep Bs Antigen Cancelled Hep B Core IgM Ab Conf Cancelled Hepatitis C Antibody Cancelled 07/26 07/26 07/26 1338 1015 1015 Chemistry Sodium (137 - 145 mmol/L) 129 L Potassium (3.5 - 5.1 mmol/L) 3.4 L Chloride (98 - 107 mmol/L) 92 L Carbon Dioxide (22 - 30 mmol/L) 7 *L Anion Gap (5 - 16) 30 H BUN (9 - 20 mg/dL) 53 H Creatinine (0.7 - 1.2 mg/dL) 8.8 *H Estimated GFR (>60 ml/min) 7 L Glucose (65 - 99 mg/dL) 101 H Uric Acid (3.5 - 8.5 mg/dL) 10.4 H Calcium (8.4 - 10.2 mg/dL) 5.8 *L Phosphorus (2.5 - 4.5 mg/dL) 10.3 H Magnesium (1.6 - 2.3 mg/dL) 1.0 L Total Bilirubin (0.2 - 1.3 mg/dL) 2.1 H AST (17 - 59 U/L) 44 ALT (21 - 72 U/L) 41 Albumin (3.5 - 5.0 g/dL) 3.5 Serology Hepatitis A IgM Ab (NONREACTIVE) NONREACTIVE Hep Bs Antigen (NONREACTIVE) NONREACTIVE Hep B Core IgM Ab Conf (NONREACTIVE) NONREACTIVE Hepatitis C Antibody (NONREACTIVE) NONREACTIVE Toxicology Urine Opiates Screen (>2000 NG/ML) < 100 Methadone Screen (>300 NG/ML) < 40 Barbiturate Screen (>200 NG/ML) < 60 Ur Phencyclidine Scrn (>25 NG/ML) < 6.00 Amphetamines Screen (>1000 NG/ML) < 100 U Benzodiazepines Scrn (>200 NG/ML) < 85 Urine Cocaine Screen (>300 NG/ML) < 50 Urine Cannabis Screen (>50 NG/ML) < 5.00 Urines Urinalysis MANY H Urine Color (YEL,AMB,STR) YEL Urine Clarity (CLEAR) HAZY H Urine pH (5.0 - 8.0) 6.0 Ur Specific [place] (1.001 - 1.035) 1.025 Urine Protein (NEG,<30 MG/DL) 100 H Urine Ketones (NEG) NEG Urine Nitrite (NEG) NEG Urine Bilirubin (NEG) NEG Urine Urobilinogen (0.1 - 1.0 EU/dl) 0.2 Ur Leukocyte Esterase (NEG) TRACE H Ur Microscopic SEDIMENT EXAMINED Urine RBC (0 - 5 /HPF) PACKD H Urine WBC (0 - 2 /HPF) RARE Ur Epithelial Cells (NONE,FEW) FEW Urine Bacteria (NEG/NONE) FEW H Urine Hemoglobin (NEG) LARGE H Urine Osmolality (300 - 1000 MOSM/KG) 307 Ur Random Creatinine (mg/dL) 141.3 U Random Total Protein (0 - 12 mg/dL) 85 H Ur Random Sodium (30 - 90 mmol/L) 90 Ur Random Potassium (mmol/L) 11.5 Protein/Creatinin Ratio (< 0.2) 0.6 H Fraction Sodium Excret (<1% %) 3.4 H Urine Glucose (N MG/DL) NEG 07/26 07/26 UNK 0920 Blood Gas pH (7.35 - 7.45 PH) 7.24 *L pCO2 (35 - 45 TORR) 16 L pO2 (80 - 100 TORR) 131 H HCO3 (21 - 28 MEQ/L) 6.6 L ABG O2 Sat (Measured) (>96.0 %) 98.0 Carboxyhemoglobin (1.5 - 5.0 %) 0.2 L O2 Concentration % 21 O2 Delivery Method RA Chemistry Sodium Cancelled Potassium Cancelled Chloride Cancelled Carbon Dioxide Cancelled Anion Gap Cancelled BUN Cancelled Creatinine Cancelled Glucose Cancelled Calcium Cancelled Phosphorus Cancelled Magnesium Cancelled Total Bilirubin Cancelled AST Cancelled ALT Cancelled Albumin Cancelled Miscellaneous Phlebotomy Draw Site RIGHT BRACHIAL 07/26 07/26 0715 0704 Chemistry Sodium (137 - 145 mmol/L) 131 L Potassium (3.5 - 5.1 mmol/L) 4.1 Chloride (98 - 107 mmol/L) 91 L Carbon Dioxide (22 - 30 mmol/L) 6 *L Anion Gap (5 - 16) 34 H BUN (9 - 20 mg/dL) 45 H Creatinine (0.7 - 1.2 mg/dL) 7.0 *H Estimated GFR (>60 ml/min) 8 L BUN/Creatinine Ratio (7 - 25 %) 6.4 L Glucose (65 - 99 mg/dL) 126 H Serum Osmolality (285 - 295 MOSM/KG) 278 L Lactic Acid (0.7 - 2.1 mmol/L) 3.3 H Calcium (8.4 - 10.2 mg/dL) 6.7 L Phosphorus (2.5 - 4.5 mg/dL) 13.5 H Total Bilirubin (0.2 - 1.3 mg/dL) 2.6 H Direct Bilirubin (< 0.4 mg/dL) 2.5 H AST (17 - 59 U/L) 46 ALT (21 - 72 U/L) 39 Alkaline Phosphatase (< 127 U/L) 109 Creatine Kinase (55 - 170 U/L) 1265 H Troponin I (<0.11 ng/ml) 0.02 Total Protein (6.3 - 8.2 g/dL) 7.0 Albumin (3.5 - 5.0 g/dL) 4.0 Globulin (1.9 - 4.2 gm/dL) 3.0 Albumin/Globulin Ratio (1.1 - 2.2 %) 1.3 25-OH Vitamin D Total (30 - 100 ng/ml) 5.2 L PTH Intact (18.4 - 80.1 pg/ML) 466.8 H Coagulation PT (9.4 - 12.5 SEC) 13.6 H INR (0.90 - 1.17) 1.24 H APTT (25 - 37 SEC) 32 Hematology CBC w Diff MAN DIFF ORDERED WBC (4.8 - 10.8 /CUMM) 24.4 H RBC (4.70 - 6.10 /CUMM) 5.71 Hgb (14.0 - 18.0 G/DL) 16.6 Hct (42 - 52 %) 48.7 MCV (80.0 - 94.0 FL) 85.4 MCH (27.0 - 31.0 PG) 29.0 MCHC (33.0 - 37.0 G/DL) 34.0 RDW (11.5 - 14.5 %) 14.4 Plt Count (130 - 400 /CUMM) 322 MPV (7.4 - 10.4 FL) 8.4 Gran % (42.2 - 75.2 %) 89.1 H Lymphocytes % (20.5 - 51.1 %) 4.4 L Monocytes % (1.7 - 9.3 %) 6.4 Eosinophils % (0 - 5 %) 0 Basophils % (0.0 - 2.0 %) 0.1 Absolute Granulocytes (1.4 - 6.5 /CUMM) 21.7 H Segmented Neutrophils (42.2 - 75.2 %) 81 H Band Neutrophils (0.0 - 5.0 %) 7 H Absolute Lymphocytes (1.2 - 3.4 /CUMM) 1.1 L Lymphocytes (20.5 - 51.1 %) 5 L Monocytes (1.7 - 9.3 %) 7 Absolute Monocytes (0.10 - 0.60 /CUMM) 1.6 H Absolute Eosinophils (0.0 - 0.7 /CUMM) 0 Absolute Basophils (0.0 - 0.2 /CUMM) 0 Platelet Estimate (ADEQUATE) ADEQUATE Normocytic RBCs VERIFIED Normochromic RBCs VERIFIED Schistocytes Haptoglobin Pending Toxicology Serum Alcohol (<10 MG/DL) < 10.0 Acetone Level (NEGATIVE) NEGATIVE Urines Ur Random Creatinine Cancelled U Random Total Protein Cancelled Ur Random Sodium Cancelled Ur Random Potassium Cancelled Fraction Sodium Excret Cancelled Microbiology Date/Time Procedure - Status Source Growth 07/26 1353 Blood Culture - RECD BLOOD 07/26 1338 Blood Culture - RECD BLOOD 07/26 1210 Surveillance Culture - RECD UPPER RESP 07/26 1205 Surveillance Culture - RECD GI 07/26 1015 Urine Culture - RES URINE ROUT Objective Current Medications: Current Medications Sig/Derrick Start time Last Medication Dose Route Stop Time Status Admin Calcium Carbonate 3,750 MG TIDAC 07/26 1345 AC 07/26 PO 1833 Heparin Sodium 5,000 UNIT Q8 07/26 1441 DC 07/26 (Porcine) SC 2116 Magnesium Sulfate 1 GM Q2H 07/26 1615 DC 07/26 Dextrose/Water 100 ML IV 07/26 2013 1809 Omeprazole 40 MG DAILY AC 07/26 1500 AC 07/26 PO 1630 Pantoprazole Sodium 40 MG DAILY 07/26 1441 DC IV Potassium Chloride 20 MEQ ONCE ONE 07/26 2300 DC 07/26 PO 07/26 2301 2357 Potassium Chloride 10 MEQ Q1H 07/26 2145 DC 07/26 IV 07/26 2246 2212 Potassium Chloride 40 MEQ ONCE ONE 07/26 2145 DC 07/26 PO 07/26 2146 2205 Potassium Chloride 20 MEQ ONCE ONE 07/26 1630 DC 07/26 PO 07/26 1631 1630 Sodium Bicarbonate 650 MG TID 07/27 0900 AC PO Sodium Bicarbonate 150 MEQ Q8H 07/26 1645 DC 07/26 Dextrose/Water 1,000 ML IV 1706 Sodium Bicarbonate 150 MEQ Q8H 07/26 1445 CAN Dextrose/Water 1,000 ML IV Sodium Bicarbonate 325 MG TID 07/26 1400 DC PO Sodium Bicarbonate 650 MG TID 07/26 1400 DC 07/26 PO 1418 Sodium Bicarbonate 150 MEQ Q8H 07/26 0900 DC 07/26 Dextrose/Water 1,000 ML IV 0945 Sodium Chloride 1,000 ML Q13H 07/26 2145 AC 07/26 IV 2206 Vital Signs & I&O Last 24 Hrs of Vitals and I&O: Vital Signs Date Time Temp Pulse Resp B/P B/P Pulse O2 O2 Flow FiO2 Mean Ox Delivery Rate 07/27 0800 98.0 88 18 142/76 99 Room Air 07/27 0400 97 Room Air 07/27 0000 97.9 90 20 150/60 97 Room Air 07/27 0000 97 Room Air 07/26 1600 97.5 102 18 152/80 98 Room Air 07/26 1230 97.4 100 20 158/86 96 Room Air 07/26 1200 98.0 62 20 148/79 98 07/26 1035 98.0 99 22 170/86 98 Room Air Intake & Output 07/27 1600 07/27 0800 07/27 0000 Intake Total 650 2305 Output Total 360 290 Balance 290 2015 Intake, IV 600 925 Intake, Oral 50 1380 Number 2 4 Bowel Movements Output, Urine 360 290 Impression/Plan Impression/Plan Impression/Plan: Exam unremarkable Chest clear Heart S1 and S2 is heard abdominal exam soft mildly tender in the left mid abdomen no CVA tenderness no cyanosis clubbing or edema IMPRESSION This is a gentleman with the history of renal stones, previous surgery for removal of his left renal stone as he had renal colic in May, had ESWL, previous hydronephrosis on the left side, chronic kidney disease with creatinine at that time was 1.8 baseline, now has * Acute on chronic renal failure with severe metabolic acidosis most likely precipitated by nonsteroidal use in a gentleman with underlying ckd. No clinical evidence suggestive of any other toxicity causing very high anion gap he did not have any osmolar gap as well. * Ongoing left-sided mild hydronephrosis which appears to be better than the previous hydronephrosis with 2 large stones in the left pelvis of the kidney * Elevated bilirubin with decompressed gallbladder and calculi within the gallbladder neck and cystic duct, now improving * Ongoing muscle cramping probably related to electrolyte abnormality which needs to be followed * Severe hypocalcemia with hyperphosphatemia related to his renal insufficiency * Myopathy with elevated CPK of 1200 probably related to his muscle cramping. Will follow * Patient also has very significantly elevated PTH may be a sign of his renal insufficiency but primary hyperparathyroid needs to be ruled out in the future * Intramural fat within the distal ileum and portions of the colon probably a sequelae of inflammatory bowel disease versus other issues. Patient recently did have small bowel obstruction * Right small inguinal hernia which needs to be evaluated in the future RECOMMENDATION * Gentle IV hydration * FOr dialysis today * Renal evaluation pending * Will follow his bilirubin and alkaline phosphatase, if worse will get surg and gi to see * Follow LFTs, alkaline phosphatase etc. and if this gets worse we will have to have a GI evaluation / surgical as he has a stone in the cystic duct. Low threshold to start abx soon with unasyn. * Gentle IV fluids * Follow cpk * By mouth PPI * Heparin subcutaneous * Urology eval if needed Patient is critically ill total time spent 40 minutes Discussed with
--- NOTE | 2017-07-27 12:30 | Cons- Urology ---
General Information and HPI Consulting Request Date of Consult: 07/27/17 Requested By: Isidoro REES,Eric Holloway Reason for Consult: Bilateral renal stones, renal failure Source of Information: patient, old records Exam Limitations: no limitations History of Present Illness: Patient is a 47-year-old gentleman with history of recurrent stones, with known bilateral kidney stones. Most recently underwent lithotripsy in May of this year. Had no troubles with the procedure at that time, passed several stones which she has recovered. He had a minor right knee injury at work recently, and started taking Naprosyn, specific really taking approximately 12 pills last week on Sunday. He presented to the ER complaining of nausea and generalized body aches which worsened. He had noted decreased urine output for a few days. He denies any flank pain or fever/chills. Denied any gross hematuria. He presented to the [facility] emergency room, was noted to have an elevated creatinine and was admitted with a diagnosis of renal failure. Allergies/Medications Allergies: Coded Allergies: No Known Drug Allergies (nkda 08/19/16) Home Med List: No Known Home Medications Current Medications: Current Medications Sig/Derrick Start time Last Medication Dose Route Stop Time Status Admin Calcium Carbonate 3,750 MG TIDAC 07/26 1345 AC 07/26 PO 1833 Fentanyl Citrate 0 .STK-MED ONE 07/27 1149 DC .ROUTE Heparin Sodium 5,000 UNIT Q8 07/27 1400 AC (Porcine) SC Heparin Sodium 0 .STK-MED ONE 07/27 1059 DC (Porcine) IV Heparin Sodium 5,000 UNIT Q8 07/26 1441 DC 07/26 (Porcine) SC 2116 Lidocaine 0 .STK-MED ONE 07/27 1059 DC .ROUTE Lidocaine/Epinephrine 0 .STK-MED ONE 07/27 1059 DC .ROUTE Magnesium Sulfate 1 GM Q2H 07/26 1615 DC 07/26 Dextrose/Water 100 ML IV 07/26 2013 1809 Midazolam HCl 0 .STK-MED ONE 07/27 1149 DC .ROUTE Omeprazole 40 MG DAILY AC 07/26 1500 AC 07/26 PO 1630 Pantoprazole Sodium 40 MG DAILY 07/26 1441 DC IV Potassium Chloride 20 MEQ ONCE ONE 07/26 2300 DC 07/26 PO 07/26 2301 2357 Potassium Chloride 10 MEQ Q1H 07/26 2145 DC 07/26 IV 07/26 2246 2212 Potassium Chloride 40 MEQ ONCE ONE 07/26 2145 DC 07/26 PO 07/26 2146 2205 Potassium Chloride 20 MEQ ONCE ONE 07/26 1630 DC 07/26 PO 07/26 1631 1630 Sodium Bicarbonate 650 MG TID 07/27 0900 AC PO Sodium Bicarbonate 150 MEQ Q8H 07/26 1645 DC 07/26 Dextrose/Water 1,000 ML IV 1706 Sodium Bicarbonate 150 MEQ Q8H 07/26 1445 CAN Dextrose/Water 1,000 ML IV Sodium Bicarbonate 325 MG TID 07/26 1400 DC PO Sodium Bicarbonate 650 MG TID 07/26 1400 DC 07/26 PO 1418 Sodium Bicarbonate 150 MEQ Q8H 07/26 0900 DC 07/26 Dextrose/Water 1,000 ML IV 0945 Sodium Chloride 1,000 ML Q13H 07/26 2145 AC 07/26 IV 2206 Past History Medical History Neurological: NONE EENT: NONE Cardiovascular: NONE Respiratory: NONE Gastrointestinal: NONE Hepatic: NONE Renal: nephrolithiasis Musculoskeletal: NONE Psychiatric: NONE Endocrine: NONE Blood Disorders: NONE Cancer(s): NONE Surgical History Pertinent Surgical History: KIDNEY STONES REMOVED ESWL x2 cystoscopy with retrograde Psychosocial History Where Do You Live? Home Who Do You Live With? spouse Services at Home: None Smoking Status: Former Smoker ETOH Use: occasional use Illicit Drug Use: denies illicit drug use Functional Ability ADLs Independent: dressing, eating, toileting, bathing. Ambulation: independent IADLs Independent: shopping, housework, finances, food prep, telephone, transportation , medication admin. Review of Systems Review of Systems: As stated above, patient denies any symptoms referable to kidney stones. He denies any flank pain, gross hematuria etc. He did have some mild nausea, likely from his significant only if intake. Review of Systems Constitutional: Reports: see HPI. Exam & Diagnostic Data Vital Signs and I&O Vital Signs Date Time Temp Pulse Resp B/P B/P Pulse O2 O2 Flow FiO2 Mean Ox Delivery Rate 07/27 0800 98.0 88 18 142/76 99 Room Air 07/27 0400 97 Room Air 07/27 0000 97.9 90 20 150/60 97 Room Air 07/27 0000 97 Room Air 07/26 1600 97.5 102 18 152/80 98 Room Air 07/26 1230 97.4 100 20 158/86 96 Room Air Intake & Output 07/27 1600 07/27 0800 07/27 0000 07/26 1600 07/26 0800 07/26 0000 Intake Total 650 2305 2333 Output Total 360 290 275 Balance 290 2014 2057 Intake, IV 513 991 7794 Intake, Oral 50 1380 960 Number 2 4 2 Bowel Movements Output, Urine 360 290 275 Patient 160 lb 150 lb Weight Weight Reported by Patient Reported by Patient Measurement Method Physical Exam: Patient is a work alert and oriented. In no apparent distress. Had a recent dialysis port insertion. Abdomen is soft and nontender. No CVA tenderness. He has an indwelling Schmitt catheter draining clear lacie urine. Physical Exam General Appearance: well developed/nourished Assessment/Plan Assessment/Plan I reviewed his CT scan and ultrasound. He does have bilateral renal stones, which are quite large. He does not have any evidence of obstruction. His ultrasound did not reveal any hydronephrosis. His CT scan reveals dramatically improved hydronephrosis from his previous CT. No evidence of any ureteral stones. I discussed the situation at length with the patient as well as with the house physicians. He does have bilateral stones, with previous mildly elevated creatinine. He has no evidence of obstruction, so no evidence that the stones are causing his new found renal failure. I suspect this is secondary to his significant Naprosyn intake, and will be cared for by nephrology. He does have stones that can eventually be taken care of, but they are not the source of his acute issue. Consult Acknowledgment - Thank you for your consult request.
[2017-07-27 16:00] VITALS: BP 170/78
--- NOTE | 2017-07-27 16:17 | ULTRASOUND REPORT ---
PROCEDURE: ULTRASOUND AND FLUOROSCOPICALLY GUIDED RIGHT INTERNAL JUGULAR VEIN TUNNELED PERMACATHETER PLACEMENT INTERVENTIONAL RADIOLOGIST: Morales Kim M.D. CLINICAL HISTORY: 47-year-old male with acute renal failure secondary to NSAID toxicity. Tunneled catheter required for dialysis. COMPARISON: Chest x-ray 07/26/2017 SEDATION: Intravenous conscious sedation was performed with full clinical nurse monitoring. An independent third-constitution party monitor nurse was utilized for full clinical nurse monitoring. The total sedation time was 15 minutes. A total of 1 mg of Versed and 50 mcg of fentanyl was utilized. FLUOROSCOPY TIME: 0.6 minutes DOSE AREA PRODUCT: 7.7 mGy-m2 (milligray-meter squared) TECHNIQUE: Informed consent was obtained from the patient prior to the procedure. During this process, the procedure and potential alternatives were explained along with the intended outcome and benefits. The risks of the procedure, including the possibility of an unsuccessful procedure, as well as the risk of not doing the procedure were discussed. The patient was given the opportunity to ask questions regarding the procedure and appeared competent to make medical decisions. A signed consent form which documents this discussion was placed in the medical record. A timeout procedure was performed. Following informed consent the patient was placed supine on the fluoroscopic table. The right neck and chest were prepped and draped in usual sterile fashion. All elements of maximal sterile barrier technique were followed including use of cap, mask, sterile gown, sterile gloves, a sterile full body drape and hand hygiene. The skin was prepared with 2% chlorhexidine for cutaneous antisepsis and sterile ultrasound preparation with sterile gel and probe cover was performed when applicable. Using ultrasound guidance the right internal jugular vein was localized. Ultrasound was utilized to assess the vascular structures for access. A standard puncture into the right internal jugular vein was performed with a Micro-Stick system. Measurements were taken and the wire advanced down the IVC to confirm venous placement. 1% lidocaine with epinephrine was placed along the anterior chest wall tunneling site. A linear incision was made. The 23 cm tip to cuff tunneled hemodialysis catheter was tunneled in the subcutaneous tissues, exiting at the venotomy site. Serial dilatation was performed over the 0.035 inches wire. A peel-away sheath was placed over the wire and the catheter advanced down the peel-away sheath. The peel-away sheath was removed. Fluoroscopic imaging confirmed location of the catheter tip within the right atrium. Dermabond was utilized to close the venotomy site. Silk suture was utilized for catheter securement. The catheter was flushed with 500 units of heparin split between the 2 lumens for dwell. The patient tolerated the procedure well. The patient was transferred to the recovery room in good condition. ULTRASOUND-GUIDED VASCULAR ACCESS: Ultrasound was used to identify the right internal jugular vein. The right internal jugular vein was confirmed to be patent. Real time imaging confirmed needle access into the right internal jugular vein. An image was saved for permanent recording in PACS. IMPRESSION: Successful placement of 23 cm tip to cuff tunneled hemodialysis catheter using fluoroscopic and ultrasound guidance.
[2017-07-27 18:00] LABS: ABSOLUTE BASOPHIL COUNT 0 /CUMM (0.0-0.2); ABSOLUTE EOSINOPHIL COUNT 0 /CUMM (0.0-0.7); ABSOLUTE GRANULOCYTE CT 7.8 /CUMM (1.4-6.5); ABSOLUTE LYMPH COUNT 0.5 /CUMM (1.2-3.4); ABSOLUTE MONOCYTE COUNT 1.5 /CUMM (0.10-0.60); BASOPHIL % 0.1 % (0.0-2.0); EOSINOPHIL % 0 % (0-5); GRANULOCYTE % 79.2 % (42.2-75.2); HEMATOCRIT 37.6 % (42-52); MEAN CORPUSCULAR HGB CONC 34.2 G/DL (33.0-37.0); MEAN CORPUSCULAR VOLUME 84.8 FL (80.0-94.0); MEAN PLATELET VOLUME 8.6 FL (7.4-10.4); PLATELET COUNT 199 /CUMM (130-400); RBC DISTRIBUTION WIDTH 14.4 % (11.5-14.5); RED BLOOD CELL CT 4.43 /CUMM (4.70-6.10); WHITE BLOOD CELL COUNT 9.9 /CUMM (4.8-10.8)
[2017-07-27 22:00] VITALS: BP 168/81
[2017-07-28 03:14] LABS: ABSOLUTE BASOPHIL COUNT 0 /CUMM (0.0-0.2); ABSOLUTE EOSINOPHIL COUNT 0 /CUMM (0.0-0.7); ABSOLUTE GRANULOCYTE CT 5.7 /CUMM (1.4-6.5); ABSOLUTE LYMPH COUNT 0.5 /CUMM (1.2-3.4); ABSOLUTE MONOCYTE COUNT 1.2 /CUMM (0.10-0.60); BASOPHIL % 0 % (0.0-2.0); EOSINOPHIL % 0 % (0-5); GRANULOCYTE % 77.1 % (42.2-75.2); HEMATOCRIT 35.1 % (42-52); MEAN CORPUSCULAR HGB 29.1 PG (27.0-31.0); MEAN CORPUSCULAR HGB CONC 34.6 G/DL (33.0-37.0); MEAN PLATELET VOLUME 8.2 FL (7.4-10.4); PLATELET COUNT 165 /CUMM (130-400); RBC DISTRIBUTION WIDTH 14.5 % (11.5-14.5); RED BLOOD CELL CT 4.18 /CUMM (4.70-6.10); WHITE BLOOD CELL COUNT 7.4 /CUMM (4.8-10.8)
[2017-07-28 06:56] VITALS: BP 148/77
[2017-07-28 08:00] VITALS: BP 156/80
--- NOTE | 2017-07-28 10:10 | PN- Resident CRCU ---
Rey REES,[facility] 07/28/17 1009: Subjective HPI/CRCU Issues: The patient became anxious after dialysis last and was given 1 mg of Ativan and melatonin. Nurses reporting very loose stool. Cdiff sent. 24 Hour Events: MAXIMUM TEMPERATURE any point to Her rash 94 Respiratory rate 1620 Blood pressure 400200/5991 95-98% RA Objective Vital Signs & I&O Last 8 Hrs of Vitals and I&O: Laboratory Tests 07/28/17 0834: Anion Gap 15, Estimated GFR 8 L, Glucose 88, Calcium 6.1 L, Phosphorus 5.1 H, Magnesium 1.5 L, Total Bilirubin 1.0, AST 34, ALT 48, Albumin 3.0 L 07/28/17 0530: Creatine Kinase Cancelled 07/28/17 0240: Anion Gap 15, Estimated GFR 9 L, Glucose 83, Calcium 6.2 L, Phosphorus 5.0 H, Magnesium 1.5 L, Total Bilirubin 1.0, Direct Bilirubin 0.9 H, AST 34, ALT 51, Alkaline Phosphatase 69, Creatine Kinase 660 H, Total Protein 5.1 L, Albumin 2.7 L, CBC w Diff NO MAN DIFF REQ, RBC 4.18 L, MCV 84.0, MCH 29.1, MCHC 34.6, RDW 14.5, MPV 8.2, Gran % 77.1 H, Lymphocytes % 6.5 L, Monocytes % 16.4 H, Eosinophils % 0, Basophils % 0, Absolute Granulocytes 5.7, Absolute Lymphocytes 0.5 L, Absolute Monocytes 1.2 H, Absolute Eosinophils 0, Absolute Basophils 0 07/27/17 1841: 07/27/17 1639: Anion Gap 21 H, Estimated GFR 6 L, BUN/Creatinine Ratio 7.6, Phosphorus 8.0 H , Magnesium 1.6, CBC w Diff NO MAN DIFF REQ, RBC 4.43 L, MCV 84.8, MCH 29.0, MCHC 34.2, RDW 14.4, MPV 8.6, Gran % 79.2 H, Lymphocytes % 5.3 L, Monocytes % 15.4 H, Eosinophils % 0, Basophils % 0.1, Absolute Granulocytes 7.8 H, Absolute Lymphocytes 0.5 L, Absolute Monocytes 1.5 H, Absolute Eosinophils 0, Absolute Basophils 0, PAVEL Titer Cancelled, Anti-Nuclear Antibody Cancelled 07/27/17 1558: Complement C3 Cancelled Microbiology 07/28 0240 STOOL: Clostridium difficile Toxin A & B - COMP Vital Signs Date Time Temp Pulse Resp B/P B/P Pulse O2 O2 Flow FiO2 Mean Ox Delivery Rate 07/28 0656 97.8 80 16 148/77 98 Room Air 07/28 0000 97 Room Air 07/27 2200 98.0 78 20 168/81 97 Room Air 07/27 1600 Room Air 07/27 1600 97.7 82 20 170/78 96 Room Air Intake & Output 07/28 1600 07/28 0800 07/28 0000 Intake Total 800 595 Output Total 360 345 Balance 440 250 Intake, IV 600 375 Intake, Oral 200 220 Number 1 2 Bowel Movements Output, Urine 360 345 Patient 160 lb Weight Intake & Output 07/28 1600 Intake Total Output Total Balance Patient 160 lb Weight Exam General Appearance: no apparent distress, alert, awake Respiratory: normal breath sounds Cardiovascular: regular rate/rhythm Gastrointestinal: normal bowel sounds, soft, non-tender Extremities: trace LE edema Current Medications: Current Medications Sig/Derrick Start time Last Medication Dose Route Stop Time Status Admin Calcitriol 1 MCG ONE ONE 07/28 1030 DC 07/28 IV 07/28 1031 1045 Calcium Carbonate 3,750 MG TIDAC 07/26 1345 AC 07/28 PO 1235 Camphor/Menthol 1 NEEL TIDPRN PRN 07/27 1645 AC TOP Heparin Sodium 5,000 UNIT Q8 07/27 1400 AC 07/28 (Porcine) SC 0527 Lorazepam 1 MG ONE ONE 07/27 1930 DC 07/27 IV 07/27 1931 1950 Melatonin 5 MG AT BEDTIME 07/27 2100 AC 07/27 PO 2115 Morphine Sulfate 2 MG ONCE ONE 07/28 1130 DC IV 07/28 1131 Omeprazole 40 MG DAILY 07/26 1500 AC 07/28 PO 0532 Potassium Chloride 40 MEQ ONCE ONE 07/28 0445 DC 07/28 PO 07/28 0446 0519 Potassium Chloride 40 MEQ ONCE ONE 07/28 0345 DC 07/28 PO 07/28 0346 0419 Simethicone 80 MG ONCE ONE 07/27 1400 DC 07/27 PO 07/27 1401 1639 Sodium Bicarbonate 650 MG TID 07/27 0900 AC 07/28 PO 0837 Sodium Chloride 1,000 ML Q13H 07/26 2145 AC 07/28 IV 0145 Impression/Plan Impression/Problem List Impression: A: 47 YO M with PMH significant for Urinary bladder stones, Nephrolithiasis with multiple stone removals by (last ) presented to [facility] with muscle spasms all over the body after taking around 12 pills of Naproxen 200mg pills last sunday found to be in acute renal failure. Problems: #Acute renal failure secondary to naprexen/nsaid overuse in the setting of improving hydronephrosis with possible underlying CKD Initial labs: Sodium 131, potassium 4.1, chloride 91, bicarbonate 6, BUN 45, creatinine 7.0, lactic acid 3.3, calcium 6.7, phosphorus 13.5, magnesium 1.0, anion gap 34, vit D 5.2, PTH elevated 466.8 Initial ABG: PH 7.24, PCO2 16, PO2 131, bicarbonate 6.6, room air Urine studies: osm 307, random creatinine 141.3, random protein 85, sodium 90, random potassium 11.5, protein/creatinine ratio 0.6, FeNa 3.4 Total protein 24 hr 655.5, The patient was started on a sodium bicarbonate drip with concurrent by mouth sodium bicarbonate until the bicarbonate was greater than 10 and the patient was switched off bicarbonate drip. The patient was also started on calcium carbonate for replenishment. The patient got an agustin-cath for dialysis. Renal ultrsound and CT abd revealed renal calculi with improved hydronephrosis. The patient was seen by urology who did not believe the renal stones for the cause of his acute renal failure. And he will require outpatient follow-up. Current labs: Sodium 133, potassium 3.0, chloride 99, bicarbonate 19, anion gap 15, BUN 53, creatinine 7.3, lactic acid 1.0 (resolved), calcium 6.1, phosphorus 5.1, magnesium 1.5 CRP 6.5 -f/u total 24 cr -cont sodium bicarb, calcium carbonate -cont dialysis per nephro -f/u nephrology reocmmendations, replenish lytes per neprho. electrolyte abnormalities improving -elevated PTH may be 2/2 renal insufficiency but primary hyperparathyroid needs to be ruled out in the future -f/u outpatient urology #Hypocalcemia with hyperphosphatemia 2/2 ARF / CKD Currently improving with dialysis and supplmentation. -cont sodium bicarb, calcium carbonate as stated above #H/H drop most likely dilutional from dialysis Initially 16.6/48.7 Currently 12.1/35.1 -cont to monitor #Elevated bilirubin with decompressed gallbladder and calculi within the gallbladder neck and cystic duct CT abd revealed the gallbladder is decompressed and there are calculi within the gallbladder neck and cystic duct. No pericholecystic inflammatory changes. Initial LFTs: AST 41, ALT 39, ALP 109, total bili 2.6, direct bili 2.5 Current LFTs improving: AST 34, ALT 51, ALP 69, total bili 1.0, direct bili 0.9 -cont monitoring LFT #Myopathy with elevated CPK Initial creatinine :1265 Current creatinine kinase : 660 -follow CPK, cont IVF #loose stool May be contributing to hypokalemia -f/u Cdiff #elevated uric acid Uric acid 10.2 No signs of gout -consider xanthine oxidase inhibitor (febuxostat/allopurniol) -cont to monitor #leukocytosis - resolved Wbc 24.4 ->7.4 Most likely reactive as patient has been afebrile -cont to monitor #CT imaging findings 1. Intramural fat within the distal ileum and portions of the colon probably a sequelae of inflammatory bowel disease versus other issues. 2. Fat-containing right inguinal hernia which also contains a small portion of the bladder. -outpatient follow up #House keeping FULL CODE Renal dialysis diet after agustin cath placement Agustin cath DVT prophylaxis heparin subq CARREON Problem List: 1. Myopathy 2. Elevated CK 3. ARF (acute renal failure) 4. Loose stools 5. Elevated LFTs Pain Ratin Tomorrow's Labs & Rationales: cbc bep mg ca phos Plan DVT/Prophylaxis: heparin Michael Pepe MD 07/28/17 1010: Attending MD Review Statement Attending Sign Off Attending Cosign Statement: I have: examined this patient, reviewed avalbl EMR data, personally reviewd images, discussd w/resident/PA/ACCOUNTS RECEIVABLE CLERK, discussed mgmt plan w/bill, discussed mgmt plan w/CM, discussed mgmt plan w/pt, agreed w/resident/PA/ACCOUNTS RECEIVABLE CLERK, amended to note. Other Findings: IMichael M.D. have examined this patient, reviewed available EMR data, personally reviewed images, discussed with resident/PA/ACCOUNTS RECEIVABLE CLERK, discussed management plan with housestaff and nursing staff, discussed managment plan all of healthcare providers, discussed management plan with patient and/or family, agreed with resident/PA/ACCOUNTS RECEIVABLE CLERK. The past history and parts of the chart have been autopopulated. Impression 47 year old man * TRINH secondary to NSAID use and possibly underlying CKD * improved metabolic acidosis * nephrolithiasis without obstruction * CPK elevation improved Plan -HD has been initiated 07/27 - tolerated well -f/u nephrology consultation -urology consult noted - no intervention for stones given no obstruction -plan for HD today -if tolerates well can be downgraded after HD today - would monitor on telemetry for another 24 hours to evaluate for any arrhthmias given fluid/electrolytes shifts DVT prophylaxis at all times TTS 35 min
--- NOTE | 2017-07-28 10:32 | PN- Nephrology ---
Assessment/Plan Nephrology Assessment: 1. Acute kidney injury. He remains oliguric 2. Metabolic acidosis. better. 3. Hypocalcemia. Begin Calcijex/ with hemodialysis 4. Hyperphosphatemia. better. 5. History of urolithiasis. 6. Chronic kidney disease? Apparently his creatinine was 1.4 in August 2016. Aside from his stones, he is not had any issues mandating medical attention Suggestion: 1. Next HD Sunday 2. Please add total creatinine to 24 hour urine sent. Subjective Subjective: Patient seen with hemodialysis. He looks well. Feels better. Objective Vital Signs and I&Os Vital Signs Date Time Temp Pulse Resp B/P B/P Pulse O2 O2 Flow FiO2 Mean Ox Delivery Rate 07/28 0656 97.8 80 16 148/77 98 Room Air 07/28 0000 97 Room Air 07/27 2200 98.0 78 20 168/81 97 Room Air 07/27 1600 Room Air 07/27 1600 97.7 82 20 170/78 96 Room Air 07/27 1200 Room Air Intake & Output 07/28 1600 07/28 0400 07/27 1600 07/27 0400 07/26 1600 07/26 0400 Intake Total 872 826 3906 2305 2333 Output Total 360 345 685 290 275 Balance 221 307 7581 2014 2057 Intake, IV 311 907 8800 925 1373 Intake, Oral 200 966 043 0394 960 Number 1 2 4 4 2 Bowel Movements Output, Urine 360 345 685 290 275 Patient 160 lb Weight Weight Reported by Patient Measurement Method Physical Exam: General Appearance: no apparent distress, alert, awake, anxious, comfortable Head: atraumatic Ears, Nose, Throat: normal pharynx, normal ENT inspection, hearing grossly normal Neck: normal inspection, trachea mid line, R IJ agustin catheter tunnelled Cath in place Respiratory: normal breath sounds, chest non-tender, no respiratory distress, lungs clear Cardiovascular: regular rate/rhythm, no rub Abdomen: normal bowel sounds, soft, non-tender, No bruit Neurologic/Psychiatric: no motor/sensory deficits, awake, alert, oriented x 3, normal gait, no asterixis Skin: intact, normal color, warm/dry Reproductive: Schmitt catheter in place Current Medications: Current Medications Sig/Derrick Start time Last Medication Dose Route Stop Time Status Admin Calcium Carbonate 3,750 MG TIDAC 07/26 1345 AC 07/28 PO 0837 Camphor/Menthol 1 NEEL TIDPRN PRN 07/27 1645 AC TOP Fentanyl Citrate 0 .STK-MED ONE 07/27 1149 DC .ROUTE Heparin Sodium 5,000 UNIT Q8 07/27 1400 AC 07/28 (Porcine) SC 0527 Heparin Sodium 0 .STK-MED ONE 07/27 1059 DC (Porcine) IV Lidocaine 0 .STK-MED ONE 07/27 1059 DC .ROUTE Lidocaine/Epinephrine 0 .STK-MED ONE 07/27 1059 DC .ROUTE Lorazepam 1 MG ONE ONE 07/27 1930 DC 07/27 IV 07/27 193 1950 Melatonin 5 MG AT BEDTIME 07/27 2100 AC 07/27 PO 2115 Midazolam HCl 0 .STK-MED ONE 07/27 1149 DC .ROUTE Omeprazole 40 MG DAILY AC 07/26 1500 AC 07/28 PO 0532 Potassium Chloride 40 MEQ ONCE ONE 07/28 0445 DC 07/28 PO 07/28 0446 0519 Potassium Chloride 40 MEQ ONCE ONE 07/28 0345 DC 07/28 PO 07/28 0346 0419 Simethicone 80 MG ONCE ONE 07/27 1400 DC 07/27 PO 07/27 1401 1639 Sodium Bicarbonate 650 MG TID 07/27 0900 AC 07/28 PO 0837 Sodium Chloride 1,000 ML Q13H 07/26 2145 AC 07/28 IV 0145 Results Pertinent Lab Results: Laboratory Tests 07/28 07/28 07/28 0834 0530 0240 Chemistry Sodium (137 - 145 mmol/L) 133 L 132 L Potassium (3.5 - 5.1 mmol/L) 3.0 L 2.6 *L Chloride (98 - 107 mmol/L) 99 99 Carbon Dioxide (22 - 30 mmol/L) 19 L 18 L Anion Gap (5 - 16) 15 15 BUN (9 - 20 mg/dL) 53 H 51 H Creatinine (0.7 - 1.2 mg/dL) 7.3 *H 6.9 *H Estimated GFR (>60 ml/min) 8 L 9 L Glucose (65 - 99 mg/dL) 88 83 Calcium (8.4 - 10.2 mg/dL) 6.1 L 6.2 L Phosphorus (2.5 - 4.5 mg/dL) 5.1 H 5.0 H Magnesium (1.6 - 2.3 mg/dL) 1.5 L 1.5 L Total Bilirubin (0.2 - 1.3 mg/dL) 1.0 1.0 Direct Bilirubin (< 0.4 mg/dL) 0.9 H AST (17 - 59 U/L) 34 34 ALT (21 - 72 U/L) 48 51 Alkaline Phosphatase (< 127 U/L) 69 Creatine Kinase (55 - 170 U/L) Cancelled 660 H Total Protein (6.3 - 8.2 g/dL) 5.1 L Albumin (3.5 - 5.0 g/dL) 3.0 L 2.7 L Hematology CBC w Diff NO MAN DIFF REQ WBC (4.8 - 10.8 /CUMM) 7.4 RBC (4.70 - 6.10 /CUMM) 4.18 L Hgb (14.0 - 18.0 G/DL) 12.1 L Hct (42 - 52 %) 35.1 L MCV (80.0 - 94.0 FL) 84.0 MCH (27.0 - 31.0 PG) 29.1 MCHC (33.0 - 37.0 G/DL) 34.6 RDW (11.5 - 14.5 %) 14.5 Plt Count (130 - 400 /CUMM) 165 MPV (7.4 - 10.4 FL) 8.2 Gran % (42.2 - 75.2 %) 77.1 H Lymphocytes % (20.5 - 51.1 %) 6.5 L Monocytes % (1.7 - 9.3 %) 16.4 H Eosinophils % (0 - 5 %) 0 Basophils % (0.0 - 2.0 %) 0 Absolute Granulocytes (1.4 - 6.5 /CUMM) 5.7 Absolute Lymphocytes (1.2 - 3.4 /CUMM) 0.5 L Absolute Monocytes (0.10 - 0.60 /CUMM) 1.2 H Absolute Eosinophils (0.0 - 0.7 /CUMM) 0 Absolute Basophils (0.0 - 0.2 /CUMM) 0 07/27 07/27 07/27 1841 1639 1558 Chemistry Sodium (137 - 145 mmol/L) 128 L Potassium (3.5 - 5.1 mmol/L) 3.2 L Chloride (98 - 107 mmol/L) 96 L Carbon Dioxide (22 - 30 mmol/L) 11 L Anion Gap (5 - 16) 21 H BUN (9 - 20 mg/dL) 42 H 73 H Creatinine (0.7 - 1.2 mg/dL) 9.6 *H Estimated GFR (>60 ml/min) 6 L BUN/Creatinine Ratio (7 - 25 %) 7.6 Phosphorus (2.5 - 4.5 mg/dL) 8.0 H Magnesium (1.6 - 2.3 mg/dL) 1.6 Hematology CBC w Diff NO MAN DIFF REQ WBC (4.8 - 10.8 /CUMM) 9.9 RBC (4.70 - 6.10 /CUMM) 4.43 L Hgb (14.0 - 18.0 G/DL) 12.8 L Hct (42 - 52 %) 37.6 L MCV (80.0 - 94.0 FL) 84.8 MCH (27.0 - 31.0 PG) 29.0 MCHC (33.0 - 37.0 G/DL) 34.2 RDW (11.5 - 14.5 %) 14.4 Plt Count (130 - 400 /CUMM) 199 MPV (7.4 - 10.4 FL) 8.6 Gran % (42.2 - 75.2 %) 79.2 H Lymphocytes % (20.5 - 51.1 %) 5.3 L Monocytes % (1.7 - 9.3 %) 15.4 H Eosinophils % (0 - 5 %) 0 Basophils % (0.0 - 2.0 %) 0.1 Absolute Granulocytes (1.4 - 6.5 /CUMM) 7.8 H Absolute Lymphocytes (1.2 - 3.4 /CUMM) 0.5 L Absolute Monocytes (0.10 - 0.60 /CUMM) 1.5 H Absolute Eosinophils (0.0 - 0.7 /CUMM) 0 Absolute Basophils (0.0 - 0.2 /CUMM) 0 Immunology PAVEL Titer Cancelled Anti-Nuclear Antibody Cancelled Complement C3 Cancelled 07/27 07/27 0835 0530 Blood Gas pH (7.35 - 7.45 PH) 7.28 *L pCO2 (35 - 45 TORR) 16 L pO2 (80 - 100 TORR) 134 H HCO3 (21 - 28 MEQ/L) 7 L ABG O2 Sat (Measured) (>96.0 %) 97.0 P-50 (Temp Corrected) N Carboxyhemoglobin (1.5 - 5.0 %) 0.5 L O2 Concentration % .21 Temperature (97.0 - 100.0 FARH) 98.0 O2 Delivery Method RA Chemistry Sodium (137 - 145 mmol/L) 128 L Potassium (3.5 - 5.1 mmol/L) 3.1 L Chloride (98 - 107 mmol/L) 93 L Carbon Dioxide (22 - 30 mmol/L) 11 L Anion Gap (5 - 16) 25 H BUN (9 - 20 mg/dL) 66 H Creatinine (0.7 - 1.2 mg/dL) 9.4 *H Estimated GFR (>60 ml/min) 6 L Glucose (65 - 99 mg/dL) 77 Lactic Acid (0.7 - 2.1 mmol/L) 1.0 Calcium (8.4 - 10.2 mg/dL) 5.3 *L Phosphorus (2.5 - 4.5 mg/dL) 9.5 H Magnesium (1.6 - 2.3 mg/dL) 1.7 Total Bilirubin (0.2 - 1.3 mg/dL) 1.8 H Direct Bilirubin (< 0.4 mg/dL) 1.7 H AST (17 - 59 U/L) 41 ALT (21 - 72 U/L) 47 Alkaline Phosphatase (< 127 U/L) 88 Creatine Kinase (55 - 170 U/L) 1236 H C-Reactive Prot, Quant (<1.0 mg/dL) 6.5 H Total Protein (6.3 - 8.2 g/dL) 5.9 L Albumin (3.5 - 5.0 g/dL) 3.2 L Hematology CBC w Diff MAN DIFF ORDERED WBC (4.8 - 10.8 /CUMM) 11.9 H RBC (4.70 - 6.10 /CUMM) 4.99 Hgb (14.0 - 18.0 G/DL) 14.2 Hct (42 - 52 %) 41.7 L MCV (80.0 - 94.0 FL) 83.5 MCH (27.0 - 31.0 PG) 28.5 MCHC (33.0 - 37.0 G/DL) 34.1 RDW (11.5 - 14.5 %) 14.3 Plt Count (130 - 400 /CUMM) 235 MPV (7.4 - 10.4 FL) 7.7 Gran % (42.2 - 75.2 %) 84.0 H Lymphocytes % (20.5 - 51.1 %) 5.0 L Monocytes % (1.7 - 9.3 %) 10.9 H Eosinophils % (0 - 5 %) 0 Basophils % (0.0 - 2.0 %) 0.1 Absolute Granulocytes (1.4 - 6.5 /CUMM) 10.0 H Segmented Neutrophils (42.2 - 75.2 %) 78 H Band Neutrophils (0.0 - 5.0 %) 1 Absolute Lymphocytes (1.2 - 3.4 /CUMM) 0.6 L Lymphocytes (20.5 - 51.1 %) 10 L Monocytes (1.7 - 9.3 %) 11 H Absolute Monocytes (0.10 - 0.60 /CUMM) 1.3 H Absolute Eosinophils (0.0 - 0.7 /CUMM) 0 Absolute Basophils (0.0 - 0.2 /CUMM) 0 Platelet Estimate (ADEQUATE) ADEQUATE Polychromasia 1+ Poikilocytosis 2+ Ovalocytes 1+ Andrei Cells 1+ Miscellaneous Phlebotomy Draw Site RIGHT RADIAL Other Body Source Fld Total RBCs Counted (%) 100 07/27 07/27 07/26 07/26 0500 0500 2020 1500 Chemistry Sodium (137 - 145 mmol/L) 126 L Potassium (3.5 - 5.1 mmol/L) 2.9 *L Chloride (98 - 107 mmol/L) 89 L Carbon Dioxide (22 - 30 mmol/L) 11 L Anion Gap (5 - 16) 26 H BUN (9 - 20 mg/dL) 59 H Creatinine (0.7 - 1.2 mg/dL) 8.8 *H Estimated GFR (>60 ml/min) 7 L Glucose (65 - 99 mg/dL) 85 Calcium (8.4 - 10.2 mg/dL) 5.5 *L Phosphorus (2.5 - 4.5 mg/dL) 9.7 H Magnesium (1.6 - 2.3 mg/dL) 1.8 Total Bilirubin (0.2 - 1.3 mg/dL) 1.9 H AST (17 - 59 U/L) 41 ALT (21 - 72 U/L) 41 Creatine Kinase (55 - 170 U/L) 1205 H Albumin (3.5 - 5.0 g/dL) 3.2 L Immunology PAVEL Titer Pending Anti-Nuclear Antibody Pending ANCA Pending Complement C3 Pending Complement C4 Pending Urines Urine Total Volume (600 - 1500 ML/24HR) 1150 Ur Total Protein 24 Hr (42 - 255 mg/24HR) 655.5 H 07/26 07/26 07/26 07/26 1450 1448 1338 1338 Chemistry Sodium (137 - 145 mmol/L) Cancelled 129 L Potassium (3.5 - 5.1 mmol/L) Cancelled 3.4 L Chloride (98 - 107 mmol/L) Cancelled 92 L Carbon Dioxide (22 - 30 mmol/L) Cancelled 7 *L Anion Gap (5 - 16) Cancelled 30 H BUN (9 - 20 mg/dL) Cancelled 53 H Creatinine (0.7 - 1.2 mg/dL) Cancelled 8.8 *H Estimated GFR (>60 ml/min) 7 L Glucose (65 - 99 mg/dL) Cancelled 101 H Uric Acid (3.5 - 8.5 mg/dL) 10.4 H Calcium (8.4 - 10.2 mg/dL) Cancelled Cancelled 5.8 *L Phosphorus (2.5 - 4.5 mg/dL) Cancelled 10.3 H Magnesium (1.6 - 2.3 mg/dL) Cancelled 1.0 L Total Bilirubin (0.2 - 1.3 mg/dL) Cancelled 2.1 H AST (17 - 59 U/L) Cancelled 44 ALT (21 - 72 U/L) Cancelled 41 Albumin (3.5 - 5.0 g/dL) Cancelled 3.5 Serology Hepatitis A IgM Ab (NONREACTIVE) Cancelled NONREACTIVE Hep Bs Antigen (NONREACTIVE) Cancelled NONREACTIVE Hep B Core IgM Ab Conf (NONREACTIVE) Cancelled NONREACTIVE Hepatitis C Antibody (NONREACTIVE) Cancelled NONREACTIVE 07/26 07/26 07/26 1015 1015 UNK Chemistry Sodium Cancelled Potassium Cancelled Chloride Cancelled Carbon Dioxide Cancelled Anion Gap Cancelled BUN Cancelled Creatinine Cancelled Glucose Cancelled Calcium Cancelled Phosphorus Cancelled Magnesium Cancelled Total Bilirubin Cancelled AST Cancelled ALT Cancelled Albumin Cancelled Toxicology Urine Opiates Screen (>2000 NG/ML) < 100 Methadone Screen (>300 NG/ML) < 40 Barbiturate Screen (>200 NG/ML) < 60 Ur Phencyclidine Scrn (>25 NG/ML) < 6.00 Amphetamines Screen (>1000 NG/ML) < 100 U Benzodiazepines Scrn (>200 NG/ML) < 85 Urine Cocaine Screen (>300 NG/ML) < 50 Urine Cannabis Screen (>50 NG/ML) < 5.00 Urines Urinalysis MANY H Urine Color (YEL,AMB,STR) YEL Urine Clarity (CLEAR) HAZY H Urine pH (5.0 - 8.0) 6.0 Ur Specific [place] (1.001 - 1.035) 1.025 Urine Protein (NEG,<30 MG/DL) 100 H Urine Ketones (NEG) NEG Urine Nitrite (NEG) NEG Urine Bilirubin (NEG) NEG Urine Urobilinogen (0.1 - 1.0 EU/dl) 0.2 Ur Leukocyte Esterase (NEG) TRACE H Ur Microscopic SEDIMENT EXAMINED Urine RBC (0 - 5 /HPF) PACKD H Urine WBC (0 - 2 /HPF) RARE Ur Epithelial Cells (NONE,FEW) FEW Urine Bacteria (NEG/NONE) FEW H Urine Hemoglobin (NEG) LARGE H Urine Osmolality (300 - 1000 MOSM/KG) 307 Ur Random Creatinine (mg/dL) 141.3 U Random Total Protein (0 - 12 mg/dL) 85 H Ur Random Sodium (30 - 90 mmol/L) 90 Ur Random Potassium (mmol/L) 11.5 Protein/Creatinin Ratio (< 0.2) 0.6 H Fraction Sodium Excret (<1% %) 3.4 H Urine Glucose (N MG/DL) NEG 07/26 07/26 0920 0715 Blood Gas pH (7.35 - 7.45 PH) 7.24 *L pCO2 (35 - 45 TORR) 16 L pO2 (80 - 100 TORR) 131 H HCO3 (21 - 28 MEQ/L) 6.6 L ABG O2 Sat (Measured) (>96.0 %) 98.0 Carboxyhemoglobin (1.5 - 5.0 %) 0.2 L O2 Concentration % 21 O2 Delivery Method RA Chemistry Sodium (137 - 145 mmol/L) 131 L Potassium (3.5 - 5.1 mmol/L) 4.1 Chloride (98 - 107 mmol/L) 91 L Carbon Dioxide (22 - 30 mmol/L) 6 *L Anion Gap (5 - 16) 34 H BUN (9 - 20 mg/dL) 45 H Creatinine (0.7 - 1.2 mg/dL) 7.0 *H Estimated GFR (>60 ml/min) 8 L BUN/Creatinine Ratio (7 - 25 %) 6.4 L Glucose (65 - 99 mg/dL) 126 H Serum Osmolality (285 - 295 MOSM/KG) 278 L Lactic Acid (0.7 - 2.1 mmol/L) 3.3 H Calcium (8.4 - 10.2 mg/dL) 6.7 L Phosphorus (2.5 - 4.5 mg/dL) 13.5 H Total Bilirubin (0.2 - 1.3 mg/dL) 2.6 H Direct Bilirubin (< 0.4 mg/dL) 2.5 H AST (17 - 59 U/L) 46 ALT (21 - 72 U/L) 39 Alkaline Phosphatase (< 127 U/L) 109 Creatine Kinase (55 - 170 U/L) 1265 H Troponin I (<0.11 ng/ml) 0.02 Total Protein (6.3 - 8.2 g/dL) 7.0 Albumin (3.5 - 5.0 g/dL) 4.0 Globulin (1.9 - 4.2 gm/dL) 3.0 Albumin/Globulin Ratio (1.1 - 2.2 %) 1.3 25-OH Vitamin D Total (30 - 100 ng/ml) 5.2 L PTH Intact (18.4 - 80.1 pg/ML) 466.8 H Coagulation PT (9.4 - 12.5 SEC) 13.6 H INR (0.90 - 1.17) 1.24 H APTT (25 - 37 SEC) 32 Hematology CBC w Diff MAN DIFF ORDERED WBC (4.8 - 10.8 /CUMM) 24.4 H RBC (4.70 - 6.10 /CUMM) 5.71 Hgb (14.0 - 18.0 G/DL) 16.6 Hct (42 - 52 %) 48.7 MCV (80.0 - 94.0 FL) 85.4 MCH (27.0 - 31.0 PG) 29.0 MCHC (33.0 - 37.0 G/DL) 34.0 RDW (11.5 - 14.5 %) 14.4 Plt Count (130 - 400 /CUMM) 322 MPV (7.4 - 10.4 FL) 8.4 Gran % (42.2 - 75.2 %) 89.1 H Lymphocytes % (20.5 - 51.1 %) 4.4 L Monocytes % (1.7 - 9.3 %) 6.4 Eosinophils % (0 - 5 %) 0 Basophils % (0.0 - 2.0 %) 0.1 Absolute Granulocytes (1.4 - 6.5 /CUMM) 21.7 H Segmented Neutrophils (42.2 - 75.2 %) 81 H Band Neutrophils (0.0 - 5.0 %) 7 H Absolute Lymphocytes (1.2 - 3.4 /CUMM) 1.1 L Lymphocytes (20.5 - 51.1 %) 5 L Monocytes (1.7 - 9.3 %) 7 Absolute Monocytes (0.10 - 0.60 /CUMM) 1.6 H Absolute Eosinophils (0.0 - 0.7 /CUMM) 0 Absolute Basophils (0.0 - 0.2 /CUMM) 0 Platelet Estimate (ADEQUATE) ADEQUATE Normocytic RBCs VERIFIED Normochromic RBCs VERIFIED Schistocytes Miscellaneous Phlebotomy Draw Site RIGHT BRACHIAL Toxicology Serum Alcohol (<10 MG/DL) < 10.0 Acetone Level (NEGATIVE) NEGATIVE 07/26 0704 Hematology Haptoglobin Pending Urines Ur Random Creatinine Cancelled U Random Total Protein Cancelled Ur Random Sodium Cancelled Ur Random Potassium Cancelled Fraction Sodium Excret Cancelled
--- NOTE | 2017-07-28 14:51 | Transfer of Care Summary ---
Hospital Course Course Hospital Course: Reason for transfer to ICU: Acute renal failure secondary to naprexen/nsaid overuse with severe hypocalcemia and hyperphosphotemia HPI: 47 YO M with PMH significant for Urinary bladder stones, Nephrolithiasis with multiple stone removals by (last ) presented to [facility] with muscle spasms all over the body after taking around 12 pills of Naproxen 200mg pills last sunday. Patient went to urgent care after having right knee injury due to mechanical fall on last sunday, he did not undergo any blood work at that place, is informed to take Motrin (Tylenol/Ibuprofen) 2-3 pills every 6 hours. Patient took naproxen around 12 pills on Sunday. He denies taking any occasions since sunday. He did report feeling nauseous on Sunday night. He started experiencing soreness all over his muscles since Sunday morning and got worse by today which prompted him to come to ER. He reports decreased urine output since the past few days after taking Aleve and also burning sensation at the end of urination since last night. He reports being unaware of any abnormal renal numbers so far, reportedly well hydrated. Interval events in the Floor: A: 47 YO M with a PMH significant for nephrolithiasis with multiple stone removals by (last ) presented to [facility] with muscle spasms all over the body after taking around 12 pills of Naproxen 200mg pills for knee pain found to be in acute renal failure. Problems: #Acute renal failure with severe metabolic derangements secondary to naprexen/ nsaid overuse in the setting of improving hydronephrosis with possible underlying CKD Initial labs: Sodium 131, potassium 4.1, chloride 91, bicarbonate 6, BUN 45, creatinine 7.0, lactic acid 3.3, calcium 6.7, phosphorus 13.5, magnesium 1.0, anion gap 34, vit D 5.2, PTH elevated 466.8 Initial ABG: PH 7.24, PCO2 16, PO2 131, bicarbonate 6.6, room air Urine studies: osm 307, random creatinine 141.3, random protein 85, sodium 90, random potassium 11.5, protein/creatinine ratio 0.6, FeNa 3.4 Total protein 24 hr 655.5 The patient was started on a sodium bicarbonate drip for acidosis with concurrent by mouth sodium bicarbonate until the bicarbonate was greater than 10 and the patient was switched off bicarbonate drip. The patient was also started on calcium carbonate for replenishment. The patient got an jose m-cath for dialysis. He has received dialysis x2 thus far and electrolyte abnormalities have improved. Renal ultrasound and CT abd revealed renal calculi with improved hydronephrosis. The patient was seen by urology who did not believe the renal stones for the cause of his acute renal failure. And he will require outpatient follow-up. The patient was found to have elevated PTH most likely 2/2 renal insufficiency but primary hyperparathyroid needs to be ruled out in the future. Current labs: Sodium 133, potassium 3.0, chloride 99, bicarbonate 19, anion gap 15, BUN 53, creatinine 7.3, lactic acid 1.0 (resolved), calcium 6.1, phosphorus 5.1, magnesium 1.5 CRP 6.5 -f/u total 24 cr -cont sodium bicarb, calcium carbonate -cont dialysis per nephro -f/u nephrology reocmmendations, replenish lytes per neprho. electrolyte abnormalities improving #Hypocalcemia with hyperphosphatemia 2/2 ARF / CKD Currently improving with dialysis and supplmentation. -cont sodium bicarb, calcium carbonate as stated above #H/H drop most likely dilutional from dialysis Initially 16.6/48.7 Currently 12.1/35.1 -cont to monitor #Elevated bilirubin with decompressed gallbladder and calculi within the gallbladder neck and cystic duct CT abd revealed the gallbladder is decompressed and there are calculi within the gallbladder neck and cystic duct. No pericholecystic inflammatory changes. Initial LFTs: AST 41, ALT 39, ALP 109, total bili 2.6, direct bili 2.5 Current LFTs improving: AST 34, ALT 51, ALP 69, total bili 1.0, direct bili 0.9 -cont monitoring LFT #Myopathy with elevated CPK Initial creatinine :1265 Current creatinine kinase : 660 -follow CPK, cont IVF #loose stool May be contributing to hypokalemia -f/u Cdiff #elevated uric acid Uric acid elevated 10.2 No signs of gout but uric acid may be contributing to kidney stones. -consider xanthine oxidase inhibitor (febuxostat/allopurniol) -cont to monitor -f/u urology outpatient #leukocytosis - resolved Wbc 24.4 ->7.4 Most likely reactive as patient has been afebrile -cont to monitor #CT imaging findings 1. Intramural fat within the distal ileum and portions of the colon probably a sequelae of inflammatory bowel disease versus other issues. 2. Fat-containing right inguinal hernia which also contains a small portion of the bladder. -outpatient follow up #House keeping FULL CODE Renal dialysis diet Jose M cath DVT prophylaxis heparin subq ALBARADO NIPPV: Yes/ No (details if Yes) Antibiotics: None Catheters/ IV access: Jose M cath, albarado Things to follow up (Blood Cx, Imaging, ABG etc...): C.diff DVT prophylaxis: heparin subq Consultants: Nephrology, urology Code status: FULL CODE Family updated: Yes/ No Assessment/Plan: See above
[2017-07-28 15:02] VITALS: BP 144/80
[2017-07-28 22:47] VITALS: BP 132/68
[2017-07-29 07:08] VITALS: BP 120/76
[2017-07-29 08:36] LABS: ABSOLUTE BASOPHIL COUNT 0 /CUMM (0.0-0.2); ABSOLUTE EOSINOPHIL COUNT 0 /CUMM (0.0-0.7); ABSOLUTE LYMPH COUNT 0.6 /CUMM (1.2-3.4); ABSOLUTE MONOCYTE COUNT 0.9 /CUMM (0.10-0.60); BASOPHIL % 0.3 % (0.0-2.0); EOSINOPHIL % 0.6 % (0-5); GRANULOCYTE % 72.3 % (42.2-75.2); HEMATOCRIT 31.6 % (42-52); MEAN CORPUSCULAR HGB CONC 34.2 G/DL (33.0-37.0); MEAN PLATELET VOLUME 8.7 FL (7.4-10.4); PLATELET COUNT 131 /CUMM (130-400); RBC DISTRIBUTION WIDTH 14.6 % (11.5-14.5); RED BLOOD CELL CT 3.72 /CUMM (4.70-6.10); WHITE BLOOD CELL COUNT 5.5 /CUMM (4.8-10.8)
--- NOTE | 2017-07-29 13:07 | PN- Att Addend ---
Attending MD Review Statement Attending Statement Attending MD Statement: examined this patient, discuss w/resident/PA/FLAG SIGNALER, agreed w/resident/PA/FLAG SIGNALER, reviewed EMR data (avail), discussed w/nursing Attending Assessment/Plan: 47 yr M with PMH significant for Urinary bladder stones, Nephrolithiasis with multiple stone removals by (last ) presented to [facility] with muscle spasms all over the body and was taking around 12 pills of Naproxen 200mg tabs last sunday and on presentation in ER was found to be in acute renal failure with severe metabolic acidosis requiring ICU admission. . Problems: Acute renal failure with possible underlying CKD secondary to naprexen/nsaid overuse with severe metabolic acidosis on admission- Pt required initially bicarbonate drip and has been started on HD as per nephrology and pt is planned for next dialysis on Sunday. Currently on po bicarbonate. F/u on renal recommendations. Hypokalemia- replaced po today, recheck in am. Hypocalcemia- on supplementation. cont to monitor levels. DVT proph- on sc heparin. aggie pt the care plan.
[2017-07-29 14:08] VITALS: BP 168/80
[2017-07-29 21:57] VITALS: BP 148/68
[2017-07-30 06:52] VITALS: BP 136/64
--- NOTE | 2017-07-30 07:07 | PN- Housestaff ---
Arslan REES,[facility] 07/30/17 0707: Subjective Follow-up For: TRINH on CKD Metabolic Acidosis Muscle aches Tele-Events Since Last Visit: NSR with HR 59-84. No overnight events. Subjective: Patient was seen and examined at bedside. Feels well. Slept well last night. Has no complaints. Review of Systems Constitutional: Reports: no symptoms. Objective Last 24 Hrs of Vital Signs/I&O Vital Signs Date Time Temp Pulse Resp B/P B/P Pulse O2 O2 Flow FiO2 Mean Ox Delivery Rate 07/30 0652 98.1 70 18 136/64 98 Room Air 07/29 2229 98.8 07/29 2228 98.8 07/29 2157 99.4 72 18 148/68 98 Room Air 07/29 2138 99.4 07/29 1600 99 Room Air 07/29 1408 98.0 75 18 168/80 99 Room Air Intake & Output 07/30 1600 07/30 0800 07/30 0000 Intake Total 885 440 Output Total 550 Balance 885 -110 Intake, IV 525 Intake, Oral 360 440 Number 2 Bowel Movements Output, Urine 550 Patient 164 lb Weight Physical Exam General Appearance: Alert, Oriented X3, Cooperative, No Acute Distress Skin: No Rashes, No Breakdown Skin Temp/Moisture Exam: Warm/Dry Sepsis Skin Exam (color): Normal for Ethnicity HEENT: Atraumatic Cardiovascular: Normal S1, Normal S2, No Murmurs Lungs: Clear to Auscultation, Normal Air Movement Abdomen: Soft, No Tenderness Neurological: Normal Speech Extremities: No Edema Assessment/Plan Assessment: 47 yo M with PMH significant for Urinary bladder stones, Nephrolithiasis with multiple stone removals by (last ) presented to [facility] with complains of diffuse muscle spasmsTHe patient reported having taken around 12 pills of Naproxen 200mg pills 3 days prior to admission. Assessment: 1. TRINH on CKD 2. Metabolic Acidosis - Resolved 3. Hypocalcemia - Improving 4. Hyperphosphatemia - resolved 5. Elevated Bilirubin - Improving 6. Myopathy with Elevated CK - Improving Plan: * Continue monitoring on telemetry floor. He still has significant electrolyte derangements. * Dialysis today. His Cr is significantly elevated. Old records show his Cr to be 1.4. He likely has existing CKD which was exacerbated in the setting of heavy NSAID use. * Monitor electrolytes and replete as necessary. * continue sodium bicarb and calcium carbonate * His 24 hour urine protein - Cr is highly elevated which likely suggests nephropathy which in this case is attributed to NSAIDs. * Hepatitis panel was negative * PAVEL/Complement serologies - pending * Plans for renal biopsy as per nephro * His LFTs were elevated on admission and are improving. No need to further monitor. * CK is improving as well. No need for further monitoring. * Continue Loperamide as needed for diarrhea. * Diet: Renal Dialysis * DVT Prophylaxis: SC Heparin x 3 * Code: Full Code Problem List: 1. ARF (acute renal failure) Pain Ratin Pain Location: none Pain Goal: Remain pain free Pain Plan: none Tomorrow's Labs & Rationales: CBC, BEP Patricia Weiss 07/30/17 1331: Attending MD Review Statement Attending Statement Attending MD Statement: examined this patient, discuss w/resident/PA/GROUP SALES REPRESENTATIVE, agreed w/resident/PA/GROUP SALES REPRESENTATIVE, discussed with family, reviewed EMR data (avail), discussed with nursing, discussed with case mgmt, reviewed images, amended to note Attending Assessment/Plan: Patient went for dialysis today as per nephrology recommnedations. Dialysis access as per nephro and plan for dialysis as per nephro. Continue repele electrolytes. Follow labs and no improvement consider GI consult and renal biospy in future.
[2017-07-30 09:43] LABS: ABSOLUTE BASOPHIL COUNT 0 /CUMM (0.0-0.2); ABSOLUTE EOSINOPHIL COUNT 0.1 /CUMM (0.0-0.7); ABSOLUTE GRANULOCYTE CT 4.3 /CUMM (1.4-6.5); ABSOLUTE LYMPH COUNT 0.6 /CUMM (1.2-3.4); ABSOLUTE MONOCYTE COUNT 0.9 /CUMM (0.10-0.60); BASOPHIL % 0.1 % (0.0-2.0); EOSINOPHIL % 0.9 % (0-5); GRANULOCYTE % 72.8 % (42.2-75.2); HEMATOCRIT 29.8 % (42-52); MEAN CORPUSCULAR HGB 29.2 PG (27.0-31.0); MEAN CORPUSCULAR HGB CONC 34.2 G/DL (33.0-37.0); MEAN CORPUSCULAR VOLUME 85.2 FL (80.0-94.0); MEAN PLATELET VOLUME 8.5 FL (7.4-10.4); PLATELET COUNT 129 /CUMM (130-400); WHITE BLOOD CELL COUNT 5.9 /CUMM (4.8-10.8)
--- NOTE | 2017-07-30 11:09 | PN- Nephrology ---
Assessment/Plan Nephrology Assessment: 1. Acute -now nonoliguric - kidney injury likely secondary to acute tubular necrosis in setting of dehydration and intense although short-lived NSAID exposure 2. Probable CKD based on blood work earlier this year - although this was at time of an active medical problem, namely transient small bowel obstruction 3. Persistent metabolic acidosis, hypokalemia and hypomagnesemia in the setting of continued diarrhea 4. Hypocalcemia and hyperphosphatemia, both improved 5. History of nephrolithiasis Suggestion: 1. Hemodialysis today and progress with minimal ultrafiltration planned over 3 hours 2. Continue to supplement potassium and magnesium as needed 3. Would also continue oral sodium bicarbonate for now 4. Next hemodialysis tentatively scheduled for Tuesday 08/01 5. Consider GI consult regarding persistent diarrhea 6. Renal workup in progress - serology results pending. If no signs of improvement this week, will need to consider renal biopsy. Subjective Subjective: Seen with hemodialysis today. Patient claims that his appetite is flat but he has had no nausea or vomiting. He denies any other symptoms other than persistent diarrhea. C. difficile negative. Chemistries reviewed. Objective Vital Signs and I&Os Vital Signs Date Time Temp Pulse Resp B/P B/P Pulse O2 O2 Flow FiO2 Mean Ox Delivery Rate 07/30 0652 98.1 70 18 136/64 98 Room Air 07/29 2228 98.8 07/30 2227 98.8 07/29 2157 99.4 72 18 148/68 98 Room Air 07/29 2138 99.4 07/29 1600 99 Room Air 07/29 1408 98.0 75 18 168/80 99 Room Air Intake & Output 07/30 1600 07/30 0400 07/29 1600 07/29 0400 07/28 1600 07/28 0400 Intake Total 530 258 9300 1050 2300 595 Output Total 550 700 510 345 Balance 885 -110 1580 1050 1790 250 Intake, IV 525 1200 600 900 375 Intake, Oral 774 736 0444 450 1400 220 Number 2 7 1 4 2 Bowel Movements Output, Urine 550 700 510 345 Patient 164 lb 162 lb 160 lb Weight Weight Bed scale Bed scale Measurement Method Physical Exam: General: Well-developed white male in NAD Skin: No rash or jaundice HEENT: Conjunctivae pink, sclerae anicteric, mucous membranes moist Neck: Without masses or thyromegaly, no supraclavicular or cervical adenopathy Chest: Clear to P&A Heart: Regular rate and rhythm without S3 or rub Abdomen: Soft and nontender without palpable masses or organomegaly Extremities: Without cyanosis or edema Neuro: Awake and alert, no focal findings, no asterixis or myoclonus Current Medications: Current Medications Sig/Derrick Start time Last Medication Dose Route Stop Time Status Admin Acetaminophen 500 MG ONCE ONE 07/29 2114 DC 07/29 PO 07/30 2115 2138 Calcium Carbonate 3,750 MG TIDAC 07/26 1345 AC 07/30 PO 0811 Camphor/Menthol 1 NEEL TIDPRN PRN 07/27 1645 AC TOP Heparin Sodium 5,000 UNIT Q8 07/27 1400 AC 07/30 (Porcine) SC 0548 Loperamide HCl 2 MG Q6P PRN 07/29 1915 AC 07/29 PO 2026 Loperamide HCl 2 MG ONE ONE 07/29 1330 DC 07/29 PO 07/29 1331 1326 Magnesium Sulfate 1 GM Q2H 07/30 0845 AC Dextrose/Water 100 ML IV 07/30 1244 Melatonin 5 MG AT BEDTIME 07/27 2100 AC 07/29 PO 2226 Omeprazole 40 MG DAILY AC 07/26 1500 AC 07/30 PO 0548 Potassium Chloride 40 MEQ ONCE ONE 07/30 0845 DC PO 07/30 0846 Simethicone 80 MG Q6P PRN 07/29 1800 AC 07/29 PO 1800 Sodium Bicarbonate 650 MG TID 07/27 0900 AC 07/30 PO 0811 Sodium Chloride 1,000 ML Q13H 07/26 2145 AC 07/30 IV 0239 Results Pertinent Lab Results: Laboratory Tests 07/30 07/30 0900 0626 Chemistry Sodium (137 - 145 mmol/L) 137 Potassium (3.5 - 5.1 mmol/L) 2.8 *L Chloride (98 - 107 mmol/L) 106 Carbon Dioxide (22 - 30 mmol/L) 19 L Anion Gap (5 - 16) 12 BUN (9 - 20 mg/dL) 36 H Creatinine (0.7 - 1.2 mg/dL) 6.0 *H Estimated GFR (>60 ml/min) 10 L BUN/Creatinine Ratio (7 - 25 %) 6.0 L Calcium (8.4 - 10.2 mg/dL) 7.1 L Magnesium (1.6 - 2.3 mg/dL) 1.5 L Albumin (3.5 - 5.0 g/dL) 2.8 L Hematology CBC w Diff NO MAN DIFF REQ WBC (4.8 - 10.8 /CUMM) 5.9 RBC (4.70 - 6.10 /CUMM) 3.50 L Hgb (14.0 - 18.0 G/DL) 10.2 L Hct (42 - 52 %) 29.8 L MCV (80.0 - 94.0 FL) 85.2 MCH (27.0 - 31.0 PG) 29.2 MCHC (33.0 - 37.0 G/DL) 34.2 RDW (11.5 - 14.5 %) 14.0 Plt Count (130 - 400 /CUMM) 129 L MPV (7.4 - 10.4 FL) 8.5 Gran % (42.2 - 75.2 %) 72.8 Lymphocytes % (20.5 - 51.1 %) 10.5 L Monocytes % (1.7 - 9.3 %) 15.7 H Eosinophils % (0 - 5 %) 0.9 Basophils % (0.0 - 2.0 %) 0.1 Absolute Granulocytes (1.4 - 6.5 /CUMM) 4.3 Absolute Lymphocytes (1.2 - 3.4 /CUMM) 0.6 L Absolute Monocytes (0.10 - 0.60 /CUMM) 0.9 H Absolute Eosinophils (0.0 - 0.7 /CUMM) 0.1 Absolute Basophils (0.0 - 0.2 /CUMM) 0 07/29 07/28 07/28 0615 0834 0554 Chemistry Sodium (137 - 145 mmol/L) 134 L 133 L Potassium (3.5 - 5.1 mmol/L) 2.9 *L 3.0 L Chloride (98 - 107 mmol/L) 103 99 Carbon Dioxide (22 - 30 mmol/L) 20 L 19 L Anion Gap (5 - 16) 11 15 BUN (9 - 20 mg/dL) 35 H 53 H Creatinine (0.7 - 1.2 mg/dL) 5.6 *H 7.3 *H Estimated GFR (>60 ml/min) 11 L 8 L BUN/Creatinine Ratio (7 - 25 %) 6.3 L Glucose (65 - 99 mg/dL) 88 Calcium (8.4 - 10.2 mg/dL) 6.8 L 6.1 L Phosphorus (2.5 - 4.5 mg/dL) 3.9 5.1 H Magnesium (1.6 - 2.3 mg/dL) 1.7 1.5 L Total Bilirubin (0.2 - 1.3 mg/dL) 0.8 1.0 Direct Bilirubin (< 0.4 mg/dL) 0.6 H AST (17 - 59 U/L) 34 ALT (21 - 72 U/L) 48 Creatine Kinase (55 - 170 U/L) 139 Cancelled Albumin (3.5 - 5.0 g/dL) 3.0 L Hematology CBC w Diff NO MAN DIFF REQ WBC (4.8 - 10.8 /CUMM) 5.5 RBC (4.70 - 6.10 /CUMM) 3.72 L Hgb (14.0 - 18.0 G/DL) 10.8 L Hct (42 - 52 %) 31.6 L MCV (80.0 - 94.0 FL) 85.0 MCH (27.0 - 31.0 PG) 29.0 MCHC (33.0 - 37.0 G/DL) 34.2 RDW (11.5 - 14.5 %) 14.6 H Plt Count (130 - 400 /CUMM) 131 MPV (7.4 - 10.4 FL) 8.7 Gran % (42.2 - 75.2 %) 72.3 Lymphocytes % (20.5 - 51.1 %) 10.3 L Monocytes % (1.7 - 9.3 %) 16.5 H Eosinophils % (0 - 5 %) 0.6 Basophils % (0.0 - 2.0 %) 0.3 Absolute Granulocytes (1.4 - 6.5 /CUMM) 4.0 Absolute Lymphocytes (1.2 - 3.4 /CUMM) 0.6 L Absolute Monocytes (0.10 - 0.60 /CUMM) 0.9 H Absolute Eosinophils (0.0 - 0.7 /CUMM) 0 Absolute Basophils (0.0 - 0.2 /CUMM) 0 07/28 07/27 0240 1841 Chemistry Sodium (137 - 145 mmol/L) 132 L Potassium (3.5 - 5.1 mmol/L) 2.6 *L Chloride (98 - 107 mmol/L) 99 Carbon Dioxide (22 - 30 mmol/L) 18 L Anion Gap (5 - 16) 15 BUN (9 - 20 mg/dL) 51 H 42 H Creatinine (0.7 - 1.2 mg/dL) 6.9 *H Estimated GFR (>60 ml/min) 9 L Glucose (65 - 99 mg/dL) 83 Calcium (8.4 - 10.2 mg/dL) 6.2 L Phosphorus (2.5 - 4.5 mg/dL) 5.0 H Magnesium (1.6 - 2.3 mg/dL) 1.5 L Total Bilirubin (0.2 - 1.3 mg/dL) 1.0 Direct Bilirubin (< 0.4 mg/dL) 0.9 H AST (17 - 59 U/L) 34 ALT (21 - 72 U/L) 51 Alkaline Phosphatase (< 127 U/L) 69 Creatine Kinase (55 - 170 U/L) 660 H Total Protein (6.3 - 8.2 g/dL) 5.1 L Albumin (3.5 - 5.0 g/dL) 2.7 L Hematology CBC w Diff NO MAN DIFF REQ WBC (4.8 - 10.8 /CUMM) 7.4 RBC (4.70 - 6.10 /CUMM) 4.18 L Hgb (14.0 - 18.0 G/DL) 12.1 L Hct (42 - 52 %) 35.1 L MCV (80.0 - 94.0 FL) 84.0 MCH (27.0 - 31.0 PG) 29.1 MCHC (33.0 - 37.0 G/DL) 34.6 RDW (11.5 - 14.5 %) 14.5 Plt Count (130 - 400 /CUMM) 165 MPV (7.4 - 10.4 FL) 8.2 Gran % (42.2 - 75.2 %) 77.1 H Lymphocytes % (20.5 - 51.1 %) 6.5 L Monocytes % (1.7 - 9.3 %) 16.4 H Eosinophils % (0 - 5 %) 0 Basophils % (0.0 - 2.0 %) 0 Absolute Granulocytes (1.4 - 6.5 /CUMM) 5.7 Absolute Lymphocytes (1.2 - 3.4 /CUMM) 0.5 L Absolute Monocytes (0.10 - 0.60 /CUMM) 1.2 H Absolute Eosinophils (0.0 - 0.7 /CUMM) 0 Absolute Basophils (0.0 - 0.2 /CUMM) 0 07/27 07/27 1639 1558 Chemistry Sodium (137 - 145 mmol/L) 128 L Potassium (3.5 - 5.1 mmol/L) 3.2 L Chloride (98 - 107 mmol/L) 96 L Carbon Dioxide (22 - 30 mmol/L) 11 L Anion Gap (5 - 16) 21 H BUN (9 - 20 mg/dL) 73 H Creatinine (0.7 - 1.2 mg/dL) 9.6 *H Estimated GFR (>60 ml/min) 6 L BUN/Creatinine Ratio (7 - 25 %) 7.6 Phosphorus (2.5 - 4.5 mg/dL) 8.0 H Magnesium (1.6 - 2.3 mg/dL) 1.6 Hematology CBC w Diff NO MAN DIFF REQ WBC (4.8 - 10.8 /CUMM) 9.9 RBC (4.70 - 6.10 /CUMM) 4.43 L Hgb (14.0 - 18.0 G/DL) 12.8 L Hct (42 - 52 %) 37.6 L MCV (80.0 - 94.0 FL) 84.8 MCH (27.0 - 31.0 PG) 29.0 MCHC (33.0 - 37.0 G/DL) 34.2 RDW (11.5 - 14.5 %) 14.4 Plt Count (130 - 400 /CUMM) 199 MPV (7.4 - 10.4 FL) 8.6 Gran % (42.2 - 75.2 %) 79.2 H Lymphocytes % (20.5 - 51.1 %) 5.3 L Monocytes % (1.7 - 9.3 %) 15.4 H Eosinophils % (0 - 5 %) 0 Basophils % (0.0 - 2.0 %) 0.1 Absolute Granulocytes (1.4 - 6.5 /CUMM) 7.8 H Absolute Lymphocytes (1.2 - 3.4 /CUMM) 0.5 L Absolute Monocytes (0.10 - 0.60 /CUMM) 1.5 H Absolute Eosinophils (0.0 - 0.7 /CUMM) 0 Absolute Basophils (0.0 - 0.2 /CUMM) 0 Immunology PAVEL Titer Cancelled Anti-Nuclear Antibody Cancelled Complement C3 Cancelled
--- NOTE | 2017-07-30 14:15 | Discharge Summary ---
Visit Information Visit Dates Admission Date: 07/26/17 Hospital Course Allergies: Coded Allergies: No Known Drug Allergies (nkda 08/19/16)
[2017-07-30 14:30] VITALS: BP 134/60
[2017-07-30 23:00] VITALS: BP 162/78
[2017-07-31 06:29] VITALS: BP 120/62
--- NOTE | 2017-07-31 07:04 | PN- Housestaff ---
Arslan REES,[facility] 07/31/17 0703: Subjective Follow-up For: TRINH on CKD Metabolic Acidosis Muscle aches Tele-Events Since Last Visit: NSR with HR 58-82. No overnight events. Subjective: patient was seen and examined at bedside. Feels well. Reports having 3-4 episodes of loose bowel movements last night. States his muscle aches are better now which was his complaint on presentation. His right knee tends to bother him sometimes. Review of Systems Constitutional: Reports: no symptoms. Objective Last 24 Hrs of Vital Signs/I&O Vital Signs Date Time Temp Pulse Resp B/P B/P Pulse O2 O2 Flow FiO2 Mean Ox Delivery Rate 07/31 0629 98.6 64 20 120/62 95 Room Air 07/30 2300 99.7 70 18 162/78 96 07/30 1430 98.8 63 18 134/60 93 Room Air Intake & Output 07/31 0800 07/31 0000 07/30 1600 Intake Total 885 585 950 Output Total 350 1000 Balance 535 585 -50 Intake, IV 525 225 600 Intake, Oral 360 360 350 Output, Urine 350 1000 Patient 168 lb Weight Physical Exam General Appearance: Alert, Oriented X3, Cooperative, No Acute Distress Skin: No Rashes, No Breakdown Skin Temp/Moisture Exam: Warm/Dry Sepsis Skin Exam (color): Normal for Ethnicity HEENT: Atraumatic Cardiovascular: Normal S1, Normal S2, No Murmurs Lungs: Normal Air Movement, crackles at right lower base Abdomen: Soft, No Tenderness Neurological: Normal Speech Extremities: No Edema Last 24 Hrs of Lab/Jerry Results Last 24 Hrs of Labs/Mics: Laboratory Tests 07/31/17 0637: Sodium Pending, Potassium Pending, Chloride Pending, Carbon Dioxide Pending, Anion Gap Pending, BUN Pending, Creatinine Pending, BUN/Creatinine Ratio Pending , Calcium Pending, CBC w Diff Pending, WBC Pending, RBC Pending, Hgb Pending, Hct Pending, MCV Pending, MCH Pending, MCHC Pending, RDW Pending, Plt Count Pending, MPV Pending 07/30/17 0900: Albumin 2.8 L, CBC w Diff NO MAN DIFF REQ, RBC 3.50 L, MCV 85.2, MCH 29.2, MCHC 34.2, RDW 14.0, MPV 8.5, Gran % 72.8, Lymphocytes % 10.5 L, Monocytes % 15.7 H, Eosinophils % 0.9, Basophils % 0.1, Absolute Granulocytes 4.3, Absolute Lymphocytes 0.6 L, Absolute Monocytes 0.9 H, Absolute Eosinophils 0.1, Absolute Basophils 0 Assessment/Plan Assessment: 47 yo M with PMH significant for Urinary bladder stones, Nephrolithiasis with multiple stone removals by (last ) presented to [facility] with complains of diffuse muscle spasms. The patient reported having taken around 12 pills of Naproxen 200mg pills 3 days prior to admission. Assessment: 1. TRINH on CKD 2. Metabolic Acidosis - Resolved 3. Hypocalcemia - Improving 4. Hyperphosphatemia - resolved 5. Elevated Bilirubin - Improving 6. Myopathy with Elevated CK - Improving 7. Hypokalemia Plan: * Discontinue telemetry floor. * Monitor electrolytes and replete as necessary. * Next HD tomorrow. His Cr is improved after dialysis yesterday. Old records show his Cr to be 1.4. He likely has existing CKD. * continue sodium bicarb and calcium carbonate * His 24 hour urine protein - Cr is highly elevated which likely suggests nephropathy which in this case is attributed to NSAIDs. * Hepatitis panel was negative * PAVEL - negative * Complement serologies - pending * Plans for renal biopsy as per nephro * His LFTs were elevated on admission and are improving. No need to further monitor. * CK is improving as well. No need for further monitoring. * Continue Loperamide as needed for diarrhea. * Discontinue Schmitt * Diet: Regular diet with 2g Na restriction * DVT Prophylaxis: SC Heparin x 3 * Code: Full Code Problem List: 1. Elevated LFTs Pain Ratin Pain Location: none Pain Goal: Remain pain free Pain Plan: none Tomorrow's Labs & Rationales: CBC, BEP, Mg Patricia Weiss 07/31/17 1048: Attending MD Review Statement Attending Statement Attending MD Statement: examined this patient, discuss w/resident/PA/OUTDOOR EDUCATION TEACHER, agreed w/resident/PA/OUTDOOR EDUCATION TEACHER, discussed with family, reviewed EMR data (avail), discussed with nursing, discussed with case mgmt, reviewed images, amended to note Attending Assessment/Plan: Patient still c/o loose stools overnight. no blood noted. Patient is receving dialysis for TRINH on CKD with ATN from dehydration and NSAIDS use. GI consult for persistent diarrhea and send for stool studies including ova and parasite. Plan for dialysis as per neprhology thru agustin catheter. Avoid NSAIDS in future. Discontinue telemetry and possbile transfer to gen/med. Follow nephrology.
[2017-07-31 07:52] LABS: ABSOLUTE BASOPHIL COUNT 0 /CUMM (0.0-0.2); ABSOLUTE EOSINOPHIL COUNT 0.1 /CUMM (0.0-0.7); ABSOLUTE GRANULOCYTE CT 4.5 /CUMM (1.4-6.5); ABSOLUTE LYMPH COUNT 0.7 /CUMM (1.2-3.4); BASOPHIL % 0.3 % (0.0-2.0); GRANULOCYTE % 71.6 % (42.2-75.2); HEMATOCRIT 27.2 % (42-52); MEAN CORPUSCULAR HGB 29.2 PG (27.0-31.0); MEAN CORPUSCULAR HGB CONC 34.2 G/DL (33.0-37.0); MEAN CORPUSCULAR VOLUME 85.3 FL (80.0-94.0); MEAN PLATELET VOLUME 8.3 FL (7.4-10.4); PLATELET COUNT 138 /CUMM (130-400); RED BLOOD CELL CT 3.19 /CUMM (4.70-6.10); WHITE BLOOD CELL COUNT 6.4 /CUMM (4.8-10.8)
--- NOTE | 2017-07-31 13:12 | PN- Nephrology ---
Assessment/Plan Nephrology Assessment: 1. Acute -nonoliguric - kidney injury likely secondary to acute tubular necrosis in setting of dehydration and intense, although short-lived, NSAID exposure 2. Probable CKD based on blood work earlier this year - although this was at time of an active medical problem, namely transient small bowel obstruction 3. Metabolic acidosis - resolved 4. Hypokalemia and in the setting of continued diarrhea 5. Hypocalcemia, hyperphosphatemia, hypomagnesemia - improved 6. History of nephrolithiasis Suggestion: 1. Will tentatively schedule him for dialysis tomorrow afternoon but will cancel should tomorrow morning's blood work show signs of improvement 2. Please make sure that a BMP is obtained in the morning (will not be drawn by dialysis nurse) 3. Continue to supplement potassium for now 4. Can remove Schmitt but continue to monitor intake and output 5. GI consult regarding persistent diarrhea Subjective Subjective: Patient feeling better today but continues to have diarrhea. Urine output remains good. Creatinine down today following dialysis yesterday. Objective Vital Signs and I&Os Vital Signs Date Time Temp Pulse Resp B/P B/P Pulse O2 O2 Flow FiO2 Mean Ox Delivery Rate 07/31 0629 98.6 64 20 120/62 95 Room Air 07/30 2300 99.7 70 18 162/78 96 07/30 1430 98.8 63 18 134/60 93 Room Air Intake & Output 07/31 1600 07/31 0400 07/30 1600 07/30 0400 07/29 1600 07/29 0400 Intake Total 805 720 4233 440 2280 1050 Output Total 800 1000 550 700 Balance 85 585 835 -110 1580 1050 Intake, IV 753 454 3529 1200 600 Intake, Oral 360 360 130 002 1597 450 Number 2 7 1 Bowel Movements Output, Urine 800 1000 550 700 Patient 168 lb 164 lb 162 lb Weight Weight Bed scale Measurement Method Physical Exam: General: Well-developed white male in NAD Skin: No rash or jaundice HEENT: Conjunctivae pink, sclerae anicteric, mucous membranes moist Neck: Without masses or thyromegaly, no supraclavicular or cervical adenopathy Chest: Clear to P&A Heart: Regular rate and rhythm without S3 or rub Abdomen: Soft and nontender without palpable masses or organomegaly Extremities: Without cyanosis or edema Neuro: Awake and alert, no focal findings, no asterixis or myoclonus Results Pertinent Lab Results: Laboratory Tests 07/31 07/30 0637 0900 Chemistry Sodium (137 - 145 mmol/L) 137 Potassium (3.5 - 5.1 mmol/L) 2.7 *L Chloride (98 - 107 mmol/L) 105 Carbon Dioxide (22 - 30 mmol/L) 23 Anion Gap (5 - 16) 9 BUN (9 - 20 mg/dL) 16 Creatinine (0.7 - 1.2 mg/dL) 3.4 H Estimated GFR (>60 ml/min) 20 L BUN/Creatinine Ratio (7 - 25 %) 4.7 L Calcium (8.4 - 10.2 mg/dL) 7.1 L Magnesium (1.6 - 2.3 mg/dL) 1.9 Albumin (3.5 - 5.0 g/dL) 2.8 L Hematology CBC w Diff NO MAN DIFF REQ NO MAN DIFF REQ WBC (4.8 - 10.8 /CUMM) 6.4 5.9 RBC (4.70 - 6.10 /CUMM) 3.19 L 3.50 L Hgb (14.0 - 18.0 G/DL) 9.3 L 10.2 L Hct (42 - 52 %) 27.2 L 29.8 L MCV (80.0 - 94.0 FL) 85.3 85.2 MCH (27.0 - 31.0 PG) 29.2 29.2 MCHC (33.0 - 37.0 G/DL) 34.2 34.2 RDW (11.5 - 14.5 %) 14.0 14.0 Plt Count (130 - 400 /CUMM) 138 129 L MPV (7.4 - 10.4 FL) 8.3 8.5 Gran % (42.2 - 75.2 %) 71.6 72.8 Lymphocytes % (20.5 - 51.1 %) 10.9 L 10.5 L Monocytes % (1.7 - 9.3 %) 15.2 H 15.7 H Eosinophils % (0 - 5 %) 2.0 0.9 Basophils % (0.0 - 2.0 %) 0.3 0.1 Absolute Granulocytes (1.4 - 6.5 /CUMM) 4.5 4.3 Absolute Lymphocytes (1.2 - 3.4 /CUMM) 0.7 L 0.6 L Absolute Monocytes (0.10 - 0.60 /CUMM) 1.0 H 0.9 H Absolute Eosinophils (0.0 - 0.7 /CUMM) 0.1 0.1 Absolute Basophils (0.0 - 0.2 /CUMM) 0 0 07/30 07/29 0626 0615 Chemistry Sodium (137 - 145 mmol/L) 137 134 L Potassium (3.5 - 5.1 mmol/L) 2.8 *L 2.9 *L Chloride (98 - 107 mmol/L) 106 103 Carbon Dioxide (22 - 30 mmol/L) 19 L 20 L Anion Gap (5 - 16) 12 11 BUN (9 - 20 mg/dL) 36 H 35 H Creatinine (0.7 - 1.2 mg/dL) 6.0 *H 5.6 *H Estimated GFR (>60 ml/min) 10 L 11 L BUN/Creatinine Ratio (7 - 25 %) 6.0 L 6.3 L Calcium (8.4 - 10.2 mg/dL) 7.1 L 6.8 L Phosphorus (2.5 - 4.5 mg/dL) 3.9 Magnesium (1.6 - 2.3 mg/dL) 1.5 L 1.7 Total Bilirubin (0.2 - 1.3 mg/dL) 0.8 Direct Bilirubin (< 0.4 mg/dL) 0.6 H Creatine Kinase (55 - 170 U/L) 139 Hematology CBC w Diff NO MAN DIFF REQ WBC (4.8 - 10.8 /CUMM) 5.5 RBC (4.70 - 6.10 /CUMM) 3.72 L Hgb (14.0 - 18.0 G/DL) 10.8 L Hct (42 - 52 %) 31.6 L MCV (80.0 - 94.0 FL) 85.0 MCH (27.0 - 31.0 PG) 29.0 MCHC (33.0 - 37.0 G/DL) 34.2 RDW (11.5 - 14.5 %) 14.6 H Plt Count (130 - 400 /CUMM) 131 MPV (7.4 - 10.4 FL) 8.7 Gran % (42.2 - 75.2 %) 72.3 Lymphocytes % (20.5 - 51.1 %) 10.3 L Monocytes % (1.7 - 9.3 %) 16.5 H Eosinophils % (0 - 5 %) 0.6 Basophils % (0.0 - 2.0 %) 0.3 Absolute Granulocytes (1.4 - 6.5 /CUMM) 4.0 Absolute Lymphocytes (1.2 - 3.4 /CUMM) 0.6 L Absolute Monocytes (0.10 - 0.60 /CUMM) 0.9 H Absolute Eosinophils (0.0 - 0.7 /CUMM) 0 Absolute Basophils (0.0 - 0.2 /CUMM) 0
[2017-07-31 14:27] VITALS: BP 123/65
--- NOTE | 2017-07-31 14:54 | Cons- Gastroenterology ---
General Information and HPI Consulting Request Date of Consult: 07/31/17 Requested By: Patricia Weiss MD Reason for Consult: Diarrhea. Abdnormal ct scan showing intramural fat within the distal ileum and portions of the colon. Source of Information: patient, old records Exam Limitations: no limitations History of Present Illness: Mr. Story is a 47 year old male with a history of nephrolithiasis with a recent stone removal by his urologist who was admitted to on 07/26 after he presented with diffuse muscle aches and was found to be in renal failure which was presumably secondary to NSAIDs. He was treated conservatively with IV fluids and did not require dialysis. He notes that for the past several months he has been having intermittent diarrhea reporting about 3-4 loose stools a day. He does not have any diarrhea that awakens him from a sound sleep and he is without any pain associated with the diarrhea. He also denies any rectal bleeding or melena. He has not been able to identify any reliable dietary triggers for the diarrhea. He does not use Imodium for the diarrhea. He has not had any recent foreign travel, or had any sick contacts. Since being in the hospital he continued to have some loose stool which is not much different from his baseline. A stool sample has been checked for C. difficile which was negative. Allergies/Medications Allergies: Coded Allergies: No Known Drug Allergies (nkda 08/19/16) Home Med List: Calcium Carbonate 500 MG CALCIUM (1,250 MG) TABLET 1 TAB PO BID calcium supplement take BETWEEN MEALS (late morning and early evening) Ergocalciferol (Vitamin D2) (Vitamin D2) 50,000 UNIT CAPSULE 1 CAP PO SEE INSTRUCT low calcium Take one tab weekly for 8 weeks followed by one tab monthly for 6 months. Omeprazole 20 MG CAPSULE.DR 40 MG PO DAILY AC gastric protection Potassium Chloride (K-Tab ER) 20 MEQ TABLET.ER 1 TAB PO BID low K level Sodium Bicarbonate 325 MG TABLET 2 TAB PO BID acidosis take with meals. can stop when diarrhea stops. Current Medications: Current Medications Sig/Derrick Start time Last Medication Dose Route Stop Time Status Admin Calcium Carbonate 3,750 MG TIDAC 07/26 1345 AC 07/31 PO 1213 Camphor/Menthol 1 NEEL TIDPRN PRN 07/27 1645 AC TOP Heparin Sodium 5,000 UNIT Q8 07/27 1400 AC 07/31 (Porcine) SC 1444 Loperamide HCl 2 MG Q6P PRN 07/29 1915 AC 07/29 PO 2026 Melatonin 5 MG AT BEDTIME 07/27 2100 AC 07/30 PO 2240 Omeprazole 40 MG DAILY AC 07/26 1500 AC 07/31 PO 0553 Potassium Chloride 40 MEQ ONCE ONE 07/31 1400 DC 07/31 PO 07/31 1401 1444 Potassium Chloride 40 MEQ ONCE ONE 07/31 0845 DC 07/31 PO 07/31 0846 1101 Simethicone 80 MG Q6P PRN 07/29 1800 AC 07/29 PO 1800 Sodium Bicarbonate 650 MG TID 07/27 0900 AC 07/31 PO 1444 Sodium Chloride 1,000 ML Q13H 07/26 2145 AC 07/31 IV 1212 Past History Travel History Traveled to [place] past 21 day No Medical History Neurological: NONE EENT: NONE Cardiovascular: NONE Respiratory: NONE Gastrointestinal: NONE Hepatic: NONE Renal: nephrolithiasis Musculoskeletal: NONE Psychiatric: NONE Endocrine: NONE Blood Disorders: NONE Cancer(s): NONE Surgical History Surgical History: KIDNEY STONES REMOVED ESWL x2 cystoscopy with retrograde Psychosocial History Where Do You Live? Home Who Do You Live With? spouse Services at Home: None Smoking Status: Former Smoker ETOH Use: occasional use Illicit Drug Use: denies illicit drug use Functional Ability ADLs Independent: dressing, eating, toileting, bathing. Ambulation: independent IADLs Independent: shopping, housework, finances, food prep, telephone, transportation , medication admin. Review of Systems Review of Systems Constitutional: Reports: malaise, weakness. Denies: diaphoresis, fever. EENTM: Denies: no symptoms. Cardiovascular: Denies: no symptoms. Respiratory: Denies: no symptoms. GI: Reports: see HPI. Genitourinary: Reports: pain. Musculoskeletal: Reports: joint pain, muscle pain. Denies: joint swelling. Skin: Denies: no symptoms. Neurological/Psychological: Denies: no symptoms. Hematologic/Endocrine: Denies: no symptoms. Immunologic/Allergic: Denies: no symptoms. All Other Systems: Reviewed and Negative Exam & Diagnostic Data Vital Signs and I&O Vital Signs Date Time Temp Pulse Resp B/P B/P Pulse O2 O2 Flow FiO2 Mean Ox Delivery Rate 07/31 1427 98.7 60 16 123/65 99 Room Air 07/31 0629 98.6 64 20 120/62 95 Room Air 07/30 2300 99.7 70 18 162/78 96 Intake & Output 07/31 04007/30 04007/29 0400 Intake Total 2125 585 6950 096 9680 1050 Output Total 900 1000 550 700 Balance 1225 585 835 -110 1580 1050 Intake, IV 5406 584 7426 1200 600 Intake, Oral 1000 360 992 877 2233 450 Number 2 7 1 Bowel Movements Output, Urine 900 1000 550 700 Patient 168 lb 164 lb 162 lb Weight Weight Bed scale Measurement Method Physical Exam General Appearance: well developed/nourished, no apparent distress, alert, comfortable Head: atraumatic Eyes: Bilateral: normal appearance. Ears, Nose, Throat: normal pharynx, normal ENT inspection, hearing grossly normal Neck: normal inspection, supple, full range of motion Respiratory: normal breath sounds, chest non-tender, no respiratory distress Cardiovascular: regular rate/rhythm Gastrointestinal: normal bowel sounds, soft, non-tender, no organomegaly Rectal: deferred Back: normal inspection, normal range of motion Extremities: normal inspection, no edema Neurologic/Psych: no motor/sensory deficits, awake, alert, oriented x 3 Skin: intact, normal color, warm/dry Results Pertinent Lab Results: Laboratory Tests 07/31 07/30 0637 0900 Chemistry Sodium (137 - 145 mmol/L) 137 Potassium (3.5 - 5.1 mmol/L) 2.7 *L Chloride (98 - 107 mmol/L) 105 Carbon Dioxide (22 - 30 mmol/L) 23 Anion Gap (5 - 16) 9 BUN (9 - 20 mg/dL) 16 Creatinine (0.7 - 1.2 mg/dL) 3.4 H Estimated GFR (>60 ml/min) 20 L BUN/Creatinine Ratio (7 - 25 %) 4.7 L Calcium (8.4 - 10.2 mg/dL) 7.1 L Magnesium (1.6 - 2.3 mg/dL) 1.9 Albumin (3.5 - 5.0 g/dL) 2.8 L Hematology CBC w Diff NO MAN DIFF REQ NO MAN DIFF REQ WBC (4.8 - 10.8 /CUMM) 6.4 5.9 RBC (4.70 - 6.10 /CUMM) 3.19 L 3.50 L Hgb (14.0 - 18.0 G/DL) 9.3 L 10.2 L Hct (42 - 52 %) 27.2 L 29.8 L MCV (80.0 - 94.0 FL) 85.3 85.2 MCH (27.0 - 31.0 PG) 29.2 29.2 MCHC (33.0 - 37.0 G/DL) 34.2 34.2 RDW (11.5 - 14.5 %) 14.0 14.0 Plt Count (130 - 400 /CUMM) 138 129 L MPV (7.4 - 10.4 FL) 8.3 8.5 Gran % (42.2 - 75.2 %) 71.6 72.8 Lymphocytes % (20.5 - 51.1 %) 10.9 L 10.5 L Monocytes % (1.7 - 9.3 %) 15.2 H 15.7 H Eosinophils % (0 - 5 %) 2.0 0.9 Basophils % (0.0 - 2.0 %) 0.3 0.1 Absolute Granulocytes (1.4 - 6.5 /CUMM) 4.5 4.3 Absolute Lymphocytes (1.2 - 3.4 /CUMM) 0.7 L 0.6 L Absolute Monocytes (0.10 - 0.60 /CUMM) 1.0 H 0.9 H Absolute Eosinophils (0.0 - 0.7 /CUMM) 0.1 0.1 Absolute Basophils (0.0 - 0.2 /CUMM) 0 0 07/30 07/29 0626 0615 Chemistry Sodium (137 - 145 mmol/L) 137 134 L Potassium (3.5 - 5.1 mmol/L) 2.8 *L 2.9 *L Chloride (98 - 107 mmol/L) 106 103 Carbon Dioxide (22 - 30 mmol/L) 19 L 20 L Anion Gap (5 - 16) 12 11 BUN (9 - 20 mg/dL) 36 H 35 H Creatinine (0.7 - 1.2 mg/dL) 6.0 *H 5.6 *H Estimated GFR (>60 ml/min) 10 L 11 L BUN/Creatinine Ratio (7 - 25 %) 6.0 L 6.3 L Calcium (8.4 - 10.2 mg/dL) 7.1 L 6.8 L Phosphorus (2.5 - 4.5 mg/dL) 3.9 Magnesium (1.6 - 2.3 mg/dL) 1.5 L 1.7 Total Bilirubin (0.2 - 1.3 mg/dL) 0.8 Direct Bilirubin (< 0.4 mg/dL) 0.6 H Creatine Kinase (55 - 170 U/L) 139 Hematology CBC w Diff NO MAN DIFF REQ WBC (4.8 - 10.8 /CUMM) 5.5 RBC (4.70 - 6.10 /CUMM) 3.72 L Hgb (14.0 - 18.0 G/DL) 10.8 L Hct (42 - 52 %) 31.6 L MCV (80.0 - 94.0 FL) 85.0 MCH (27.0 - 31.0 PG) 29.0 MCHC (33.0 - 37.0 G/DL) 34.2 RDW (11.5 - 14.5 %) 14.6 H Plt Count (130 - 400 /CUMM) 131 MPV (7.4 - 10.4 FL) 8.7 Gran % (42.2 - 75.2 %) 72.3 Lymphocytes % (20.5 - 51.1 %) 10.3 L Monocytes % (1.7 - 9.3 %) 16.5 H Eosinophils % (0 - 5 %) 0.6 Basophils % (0.0 - 2.0 %) 0.3 Absolute Granulocytes (1.4 - 6.5 /CUMM) 4.0 Absolute Lymphocytes (1.2 - 3.4 /CUMM) 0.6 L Absolute Monocytes (0.10 - 0.60 /CUMM) 0.9 H Absolute Eosinophils (0.0 - 0.7 /CUMM) 0 Absolute Basophils (0.0 - 0.2 /CUMM) 0 Imaging/Other Studies: SERVICE DATE: 07/26/17 EXAM TYPE: CAT - CT ABD & PELVIS W/O IV CONTRAS EXAMINATION: CT ABDOMEN AND PELVIS WITHOUT CONTRAST CLINICAL INFORMATION: Acute renal failure. COMPARISON: Abdominal CT April 2017. TECHNIQUE: Multidetector volumetric imaging was performed from the superior aspect of the liver through the pubic symphysis. Sagittal and coronal reformatted images were obtained on the technologist's workstation. FINDINGS: The lung bases are clear. Limited evaluation of the unenhanced liver, spleen, and adrenal glands reveals no definite abnormality. The gallbladder is decompressed and there are calculi within the gallbladder neck and cystic duct. No pericholecystic inflammatory changes. There is partial fatty atrophy of the pancreas. There is mild left-sided hydronephrosis that is improved in comparison to the prior exam. The dominant left renal calculus is now located within the left renal pelvis, measuring up to 1.7 cm in size with mean Hounsfield units of 380. This dominant calculus was previously in the left lower pole calyx where there is now an additional 1 cm calculus with mean Hounsfield units of 250. No radiopaque ureteral calculi. No right renal calculi. There is no right-sided hydronephrosis. There is intramural fat within the distal ileum and portions of the colon, a finding that can be seen as the sequela of inflammatory bowel disease. There is no evidence of active bowel inflammation. The large and small bowel are normal in caliber without evidence of mechanical obstruction. No focal inflammatory changes adjacent to the large or the small bowel. The appendix is normal. There is no free air and there is no intra-abdominal free fluid. No mesenteric or retroperitoneal adenopathy. There is a fat-containing right inguinal hernia which also contains a small portion of the bladder. No pelvic adenopathy. No free fluid within the pelvis. There are no acute osseous abnormalities. Bridging osteophytes within the partially imaged thoracic spine suggesting diffuse idiopathic skeletal hyperostosis. Mild lumbar spondylosis. IMPRESSION: - There is mild left-sided hydronephrosis that is improved in comparison to the prior exam. The dominant left renal calculus is now located within the left renal pelvis, measuring up to 1.7 cm in size with mean Hounsfield units of 380. This dominant calculus was previously located in a left lower pole calyx where there is now an additional 1 cm calculus with mean Hounsfield units of 250. - The gallbladder is decompressed and there are calculi within the gallbladder neck and cystic duct. No pericholecystic inflammatory changes. - There is intramural fat within the distal ileum and portions of the colon, a finding that can be seen as the sequela of inflammatory bowel disease. There is no evidence of active bowel inflammation. - There is a fat-containing right inguinal hernia which also contains a small portion of the bladder. This is stable. Assessment/Plan Assessment/Recommendations: Assessment: Mr. Story is a 47-year-old male with a history of nephrolithiasis who was admitted for acute renal failure presumably secondary to NSAIDs on July 26 which has improved with supportive care. He has had chronic diarrhea over the past several months which is likely functional in etiology related to underlying IBS. His symptoms are not concerning for inflammatory bowel disease, however he did have some fat appreciated on a CAT scan in his ileum and colon which could be indicative of a chronic inflammatory process such as Crohn's so would not be unreasonable to perform a colonoscopy, but that can happen as an outpatient. It should also be mentioned that calcium oxalate stones can be associated with Crohn's disease secondary to fat malabsorption from a loss of bile salts, but an analysis of his kidney stones last year didn't reveal calcium oxalate stones. His recent stone analysis, however has not yet returned. Recommendations: 1. Diet as tolerated. 2. Follow-up stool studies. 3. Use Imodium as needed. 4. He should follow-up as an outpatient for an outpatient colonoscopy. As he has no acute GI issues that require inpatient investigation would ask that GI be recontacted for any new GI issues which may arise or significant worsening of his diarrhea. Problem List: 1. Loose stools Copies To: Bernadine REES,Inez Rapp Consult Acknowledgment - Thank you for your consult request.
[2017-07-31 23:22] VITALS: BP 136/76
[2017-08-01 07:01] VITALS: BP 130/64
--- NOTE | 2017-08-01 07:07 | PN- Housestaff ---
Arslan REES,[facility] 08/01/17 0707: Subjective Follow-up For: TRINH on CKD Metabolic Acidosis Muscle aches Tele-Events Since Last Visit: off tele Subjective: Feels well. States having 2 episodes of loose bowel movements last night but thinks they're more formed now. No other complaints. Review of Systems Constitutional: Reports: no symptoms. Objective Last 24 Hrs of Vital Signs/I&O Vital Signs Date Time Temp Pulse Resp B/P B/P Pulse O2 O2 Flow FiO2 Mean Ox Delivery Rate 08/01 0701 99.3 66 18 130/64 97 Room Air 07/31 2322 98.8 54 18 136/76 96 07/31 1427 98.7 60 16 123/65 99 Room Air Intake & Output 08/01 0800 08/01 0000 07/31 1600 Intake Total 400 1240 Output Total 700 600 550 Balance -700 -200 690 Intake, IV 600 Intake, Oral 400 640 Output, Urine 700 600 550 Patient 167 lb Weight Physical Exam General Appearance: Alert, Oriented X3, Cooperative, No Acute Distress Skin: No Rashes, No Breakdown Skin Temp/Moisture Exam: Warm/Dry Sepsis Skin Exam (color): Normal for Ethnicity HEENT: Atraumatic Cardiovascular: Normal S1, Normal S2, No Murmurs Lungs: Normal Air Movement, decreased air entry at left lung base Abdomen: Soft, No Tenderness Neurological: Normal Speech Extremities: No Edema Last 24 Hrs of Lab/Jerry Results Last 24 Hrs of Labs/Mics: Microbiology 07/31 1150 STOOL: Stool Culture - RECD 07/31 1024 STOOL: Cryptosporidium Antigen - RECD 07/31 1024 STOOL: Giardia Antigen (JERRY) - RECD Assessment/Plan Assessment: 47 yo M with PMH significant for Urinary bladder stones, Nephrolithiasis with multiple stone removals by (last ) presented to [facility] with complains of diffuse muscle spasms. The patient reported having taken around 12 pills of Naproxen 200mg pills 3 days prior to admission. Assessment: 1. TRINH on CKD 2. Metabolic Acidosis - Resolved 3. Hypocalcemia - Improving 4. Hyperphosphatemia - resolved 5. Elevated Bilirubin - Improving 6. Myopathy with Elevated CK - Improving 7. Hypokalemia Plan: * Monitor electrolytes and replete as necessary. His K and Mg is likely low because of persistent diarrhea. * HD cancelled today as his Cr is improving. Will repeat lab work tomorrow and go from there. * Old records showed his Cr to be 1.4. He likely has existing CKD. * continue sodium bicarb and calcium carbonate * His 24 hour urine protein - Cr is highly elevated which likely suggests nephropathy which in this case is attributed to NSAIDs. * Hepatitis panel was negative * PAVEL - negative * Complement serologies - negative * Stool studies - pending * GI recommends outpatient colonoscopy. * No need to further monitor LFTs and CK. * Continue Loperamide as needed for diarrhea. * Diet: Regular diet with 2g Na restriction * DVT Prophylaxis: SC Heparin x 3 * Code: Full Code Problem List: 1. Loose stools Pain Ratin Pain Location: none Pain Goal: Remain pain free Pain Plan: none Tomorrow's Labs & Rationales: CBC, BEP Patricia Weiss 08/01/17 1237: Attending MD Review Statement Attending Statement Attending MD Statement: examined this patient, discuss w/resident/PA/COMPUTER SCIENTIST, agreed w/resident/PA/COMPUTER SCIENTIST, discussed with family, reviewed EMR data (avail), discussed with nursing, discussed with case mgmt, reviewed images, amended to note Attending Assessment/Plan: Patient still c/o loose stools overnight. no blood noted. Patient is s/p dialysis for TRINH on CKD with ATN from dehydration and NSAIDS use. GI consulted for persistent diarrhea and recommend outpatient colonoscopy. Plan for dialysis as per neprhology thru agustin catheter. Avoid NSAIDS in future. transfer to gen/ med. Follow creatinine in am. Follow nephrology.
[2017-08-01 09:05] LABS: ABSOLUTE BASOPHIL COUNT 0 /CUMM (0.0-0.2); ABSOLUTE EOSINOPHIL COUNT 0.2 /CUMM (0.0-0.7); ABSOLUTE GRANULOCYTE CT 5.6 /CUMM (1.4-6.5); ABSOLUTE LYMPH COUNT 0.6 /CUMM (1.2-3.4); ABSOLUTE MONOCYTE COUNT 0.8 /CUMM (0.10-0.60); BASOPHIL % 0.1 % (0.0-2.0); EOSINOPHIL % 2.6 % (0-5); GRANULOCYTE % 77.9 % (42.2-75.2); HEMATOCRIT 27.9 % (42-52); MEAN CORPUSCULAR HGB 29.1 PG (27.0-31.0); MEAN CORPUSCULAR HGB CONC 34.1 G/DL (33.0-37.0); MEAN CORPUSCULAR VOLUME 85.3 FL (80.0-94.0); MEAN PLATELET VOLUME 8.6 FL (7.4-10.4); PLATELET COUNT 148 /CUMM (130-400); RED BLOOD CELL CT 3.27 /CUMM (4.70-6.10); WHITE BLOOD CELL COUNT 7.2 /CUMM (4.8-10.8)
--- NOTE | 2017-08-01 11:07 | PN- Nephrology ---
Assessment/Plan Nephrology Assessment: 1. TRINH secondary to acute tubular necrosis in setting of dehydration and intense, although short-lived, NSAID exposure - resolving 2. Probable CKD based on blood work earlier this year - although this was at time of an active medical problem, namely transient small bowel obstruction 3. Metabolic acidosis - resolved 4. Hypokalemia and in the setting of diarrhea 5. Hypocalcemia, hyperphosphatemia, hypomagnesemia - improved 6. History of nephrolithiasis Suggestion: 1. Will cancel hemodialysis which was tentatively scheduled for today 2. If improvement in renal function confirmed by tomorrow's lab work, he can then have his tunneled dialysis catheter removed by IR 3. Symptomatic treatment of diarrhea, per GI 4. GI follow-up as outpatient 5. He will likely need daily potassium supplementation as renal function improves and if diarrhea persists Subjective Subjective: Patient states that he feels pretty well today. He continues to have loose stools. GI consultation noted and appreciated. Creatinine down to 3.2 today from 3.4 yesterday with good urine output indicating recovery of renal function. Potassium 3.0. Other electrolytes okay. Objective Vital Signs and I&Os Vital Signs Date Time Temp Pulse Resp B/P B/P Pulse O2 O2 Flow FiO2 Mean Ox Delivery Rate 08/01 0701 99.3 66 18 130/64 97 Room Air 07/31 2322 98.8 54 18 136/76 96 07/31 1427 98.7 60 16 123/65 99 Room Air Intake & Output 08/01 1600 08/01 0400 07/31 1600 07/31 0400 07/30 1600 07/30 0400 Intake Total 400 2125 585 1835 440 Output Total 1225 535 137 6555 550 Balance -1225 -200 1225 585 835 -110 Intake, IV 3791 792 8825 Intake, Oral 400 1000 360 710 440 Number 2 Bowel Movements Output, Urine 1225 469 923 5782 550 Patient 167 lb 168 lb 164 lb Weight Physical Exam: General: Well-developed white male in NAD Skin: No rash or jaundice HEENT: Conjunctivae pink, sclerae anicteric, mucous membranes moist Neck: Without masses or thyromegaly, no supraclavicular or cervical adenopathy Chest: Clear to P&A; tunneled dialysis catheter in place Heart: Regular rate and rhythm without S3 or rub Abdomen: Soft and nontender without palpable masses or organomegaly Extremities: Without cyanosis or edema Neuro: Awake and alert, no focal findings, no asterixis or myoclonus Results Pertinent Lab Results: Laboratory Tests 08/01 07/31 0805 0637 Chemistry Sodium (137 - 145 mmol/L) 138 137 Potassium (3.5 - 5.1 mmol/L) 3.0 L 2.7 *L Chloride (98 - 107 mmol/L) 106 105 Carbon Dioxide (22 - 30 mmol/L) 22 23 Anion Gap (5 - 16) 9 9 BUN (9 - 20 mg/dL) 18 16 Creatinine (0.7 - 1.2 mg/dL) 3.2 H 3.4 H Estimated GFR (>60 ml/min) 21 L 20 L BUN/Creatinine Ratio (7 - 25 %) 5.6 L 4.7 L Calcium (8.4 - 10.2 mg/dL) 7.1 L Magnesium (1.6 - 2.3 mg/dL) 1.6 1.9 Hematology CBC w Diff NO MAN DIFF REQ NO MAN DIFF REQ WBC (4.8 - 10.8 /CUMM) 7.2 6.4 RBC (4.70 - 6.10 /CUMM) 3.27 L 3.19 L Hgb (14.0 - 18.0 G/DL) 9.5 L 9.3 L Hct (42 - 52 %) 27.9 L 27.2 L MCV (80.0 - 94.0 FL) 85.3 85.3 MCH (27.0 - 31.0 PG) 29.1 29.2 MCHC (33.0 - 37.0 G/DL) 34.1 34.2 RDW (11.5 - 14.5 %) 14.0 14.0 Plt Count (130 - 400 /CUMM) 148 138 MPV (7.4 - 10.4 FL) 8.6 8.3 Gran % (42.2 - 75.2 %) 77.9 H 71.6 Lymphocytes % (20.5 - 51.1 %) 8.8 L 10.9 L Monocytes % (1.7 - 9.3 %) 10.6 H 15.2 H Eosinophils % (0 - 5 %) 2.6 2.0 Basophils % (0.0 - 2.0 %) 0.1 0.3 Absolute Granulocytes (1.4 - 6.5 /CUMM) 5.6 4.5 Absolute Lymphocytes (1.2 - 3.4 /CUMM) 0.6 L 0.7 L Absolute Monocytes (0.10 - 0.60 /CUMM) 0.8 H 1.0 H Absolute Eosinophils (0.0 - 0.7 /CUMM) 0.2 0.1 Absolute Basophils (0.0 - 0.2 /CUMM) 0 0 07/30 07/30 0900 0626 Chemistry Sodium (137 - 145 mmol/L) 137 Potassium (3.5 - 5.1 mmol/L) 2.8 *L Chloride (98 - 107 mmol/L) 106 Carbon Dioxide (22 - 30 mmol/L) 19 L Anion Gap (5 - 16) 12 BUN (9 - 20 mg/dL) 36 H Creatinine (0.7 - 1.2 mg/dL) 6.0 *H Estimated GFR (>60 ml/min) 10 L BUN/Creatinine Ratio (7 - 25 %) 6.0 L Calcium (8.4 - 10.2 mg/dL) 7.1 L Magnesium (1.6 - 2.3 mg/dL) 1.5 L Albumin (3.5 - 5.0 g/dL) 2.8 L Hematology CBC w Diff NO MAN DIFF REQ WBC (4.8 - 10.8 /CUMM) 5.9 RBC (4.70 - 6.10 /CUMM) 3.50 L Hgb (14.0 - 18.0 G/DL) 10.2 L Hct (42 - 52 %) 29.8 L MCV (80.0 - 94.0 FL) 85.2 MCH (27.0 - 31.0 PG) 29.2 MCHC (33.0 - 37.0 G/DL) 34.2 RDW (11.5 - 14.5 %) 14.0 Plt Count (130 - 400 /CUMM) 129 L MPV (7.4 - 10.4 FL) 8.5 Gran % (42.2 - 75.2 %) 72.8 Lymphocytes % (20.5 - 51.1 %) 10.5 L Monocytes % (1.7 - 9.3 %) 15.7 H Eosinophils % (0 - 5 %) 0.9 Basophils % (0.0 - 2.0 %) 0.1 Absolute Granulocytes (1.4 - 6.5 /CUMM) 4.3 Absolute Lymphocytes (1.2 - 3.4 /CUMM) 0.6 L Absolute Monocytes (0.10 - 0.60 /CUMM) 0.9 H Absolute Eosinophils (0.0 - 0.7 /CUMM) 0.1 Absolute Basophils (0.0 - 0.2 /CUMM) 0
--- NOTE | 2017-08-01 11:33 | Patient Discharge Instructions ---
Discharge Instructions General Discharge Information You were seen/treated for: TRINH Electrolyte abnormalities Diarrhea Special Instructions: 1. Please follow up with your PCP and subgrade roller operator within one week of discharge. 2. Please follow up with your GI doctor within two weeks of discharge. 3. Please have a BMP, CBC, magnesium level drawn at [facility] or outside lab. Bring the form given to you by your doctor and have the lab send the results to subgrade roller operator and PCP. Diet Continue normal diet: Yes Activity Full Activity/No Limits: Yes Acute Coronary Syndrome Inclusion Criteria At DC or during hospital stay patient has or had the following: ACS DIAGNOSIS No Discharge Core Measures Meds if any: Prescribed or Continued at Discharge Meds if any: NOT Prescribed or Continued at Discharge Congestive Heart Failure Inclusion Criteria At DC or during hospital stay patient has or had the following: CHF DIAGNOSIS No Discharge Core Measures Meds if any: Prescribed or Continued at Discharge Meds if any: NOT Prescribed or Continued at Discharge Cerebrovascular accident Inclusion Criteria At DC or during hospital stay patient has or had the following: CVA/TIA Diagnosis No Discharge Core Measures Meds if any: Prescribed or Continued at Discharge Meds if any: NOT Prescribed or Continued at Discharge Venous thromboembolism Inclusion Criteria VTE Diagnosis No VTE Type NONE VTE Confirmed by (Test) NONE Discharge Core Measures - Per Current guidelines, there needs to be overlap - treatment for the first 5 days of Warfarin therapy. - If discharged on Warfarin prior to 5 days of - overlap therapy, the patient will need to be - assessed for post discharge needs including - *Post discharge parental anticoagulation - *Warfarin and/or parental anticoagulation education - *Follow up date to check INR post discharge At least 5 days overlap therapy as Inpatient No Meds if any: Prescribed or Continued at Discharge Note: Overlap Therapy is Warfarin and Anticoagulant Meds if any: NOT Prescribed or Continued at Discharge
[2017-08-01 12:27] VITALS: BP 148/70
[2017-08-01 13:58] VITALS: BP 126/62
[2017-08-01 22:56] VITALS: BP 132/65
[2017-08-02 06:43] VITALS: BP 134/80
[2017-08-02 08:31] LABS: ABSOLUTE BASOPHIL COUNT 0 /CUMM (0.0-0.2); ABSOLUTE EOSINOPHIL COUNT 0.2 /CUMM (0.0-0.7); ABSOLUTE GRANULOCYTE CT 6.4 /CUMM (1.4-6.5); ABSOLUTE LYMPH COUNT 0.6 /CUMM (1.2-3.4); ABSOLUTE MONOCYTE COUNT 0.7 /CUMM (0.10-0.60); BASOPHIL % 0.1 % (0.0-2.0); EOSINOPHIL % 2.1 % (0-5); GRANULOCYTE % 81.3 % (42.2-75.2); HEMATOCRIT 25.8 % (42-52); MEAN CORPUSCULAR HGB 29.1 PG (27.0-31.0); MEAN CORPUSCULAR HGB CONC 34.6 G/DL (33.0-37.0); MEAN PLATELET VOLUME 8.7 FL (7.4-10.4); PLATELET COUNT 169 /CUMM (130-400); RBC DISTRIBUTION WIDTH 13.7 % (11.5-14.5); RED BLOOD CELL CT 3.07 /CUMM (4.70-6.10); WHITE BLOOD CELL COUNT 7.9 /CUMM (4.8-10.8)
--- NOTE | 2017-08-02 09:15 | PN- Housestaff ---
Subjective Follow-up For: TRINH on CKD Metabolic Acidosis Muscle aches Subjective: Patient seen and examined. He states that he feels "good" and is ready to leave. He states that his diarrhea has continued and he has had 3 watery bowel movements in the past day. Otherwise he has no complaints. Denies chest pain, shortness of breath, abdominal pain, nausea, vomiting, fever, chills. Patient has less body aches than on admission. Review of Systems Constitutional: Reports: weakness. EENTM: Reports: no symptoms. Cardiovascular: Reports: no symptoms. Respiratory: Reports: no symptoms. Gastrointestinal: Reports: diarrhea. Genitourinary: Reports: no symptoms. Musculoskeletal: Reports: muscle pain. Skin: Reports: no symptoms. Neurological/Psychological: Reports: no symptoms. Objective Last 24 Hrs of Vital Signs/I&O Vital Signs Date Time Temp Pulse Resp B/P B/P Pulse O2 O2 Flow FiO2 Mean Ox Delivery Rate 08/02 1429 99.0 66 18 144/69 99 Room Air 08/02 0643 99.4 64 18 134/80 94 Room Air 08/01 2256 98.8 75 20 132/65 98 Room Air Intake & Output 08/02 1600 08/02 0800 08/02 0000 Intake Total 1190 600 945 Output Total 600 600 Balance 1190 0 345 Intake, IV 350 600 225 Intake, Oral 840 720 Output, Urine 600 600 Patient 169 lb 166 lb Weight Weight Bed scale Measurement Method Physical Exam General Appearance: Alert, Oriented X3, Cooperative, No Acute Distress Skin: No Rashes, No Breakdown, No Significant Lesion Skin Temp/Moisture Exam: Warm/Dry HEENT: Atraumatic, PERRLA, EOMI Cardiovascular: Regular Rate, Normal S1, Normal S2, No Murmurs Lungs: Clear to Auscultation, Normal Air Movement Abdomen: Normal Bowel Sounds, Soft, No Tenderness, No Hepatospenomegaly, No Masses Neurological: Normal Speech Extremities: No Clubbing, No Cyanosis, No Edema Vascular: Normal Pulses, Pulses Symmetrical Current Medications: Current Medications Sig/Derrick Start time Last Medication Dose Route Stop Time Status Admin Calcium Carbonate 3,750 MG TIDAC 07/26 1345 DCD 08/02 PO 1631 Camphor/Menthol 1 NEEL TIDPRN PRN 07/27 1645 DCD TOP Heparin Sodium 5,000 UNIT Q8 07/27 1400 DCD 08/01 (Porcine) SC 1423 Lidocaine 0 .STK-MED ONE 08/02 1355 DC .ROUTE Loperamide HCl 2 MG Q6P PRN 07/29 191 DCD 07/31 PO 210 Melatonin 5 MG AT BEDTIME 07/27 2100 DCD 08/01 PO 2022 Omeprazole 40 MG DAILY AC 07/26 1500 DCD 08/02 PO 0615 Simethicone 80 MG Q6P PRN 07/29 1800 DCD 07/29 PO 1800 Sodium Bicarbonate 650 MG TID 07/27 0900 DCD 08/02 PO 1425 Sodium Chloride 1,000 ML Q13H 07/26 2145 DC 08/02 IV 0833 Last 24 Hrs of Lab/Jerry Results Last 24 Hrs of Labs/Mics: Laboratory Tests 08/02/17 0710: Anion Gap 8, Estimated GFR 24 L, BUN/Creatinine Ratio 5.4 L, Magnesium 1.5 L, CBC w Diff NO MAN DIFF REQ, RBC 3.07 L, MCV 84.0, MCH 29.1, MCHC 34.6, RDW 13.7 , MPV 8.7, Gran % 81.3 H, Lymphocytes % 7.4 L, Monocytes % 9.1, Eosinophils % 2.1, Basophils % 0.1, Absolute Granulocytes 6.4, Absolute Lymphocytes 0.6 L, Absolute Monocytes 0.7 H, Absolute Eosinophils 0.2, Absolute Basophils 0 Assessment/Plan Assessment: Assessment: 47 yo M with PMH significant for urinary bladder stones, Nephrolithiasis with multiple stone removals by (last ) presented to [facility] with complains of diffuse muscle spasms. The patient reported having taken around 12 pills of Naproxen 200mg pills 3 days prior to admission. Assessment: 1. TRINH on CKD 2. Metabolic Acidosis - Resolved 3. Hypocalcemia - Improving 4. Hyperphosphatemia - resolved 5. Elevated Bilirubin - Improving 6. Myopathy with Elevated CK - Improving 7. Hypokalemia Plan: * Monitor electrolytes and replete as necessary. His K and Mg is likely low because of persistent diarrhea. Potassium today has increased to 3.0-3.3. We will give him a dose of potassium and discharge him on potassium tablets 20 twice a day * Creatinine is slowly resolving and has decreased from 3.2-2.8 today * Old records showed his Cr to be 1.4. He likely has existing CKD. * continue sodium bicarb and calcium carbonate with vitamin D outpatient as per integrity manager Guillermo Waddell MD. He will follow-up with Guillermo Waddell MD after getting a BMP and magnesium level. * His 24 hour urine protein - Cr is highly elevated which likely suggests nephropathy which in this case is attributed to NSAIDs. * Hepatitis panel was negative * PAVEL - negative * Complement serologies - negative * GI recommends outpatient colonoscopy and he will follow-up with Dr. Lanza outpatient * No need to further monitor LFTs and CK. * Diet: Regular diet with 2g Na restriction * DVT Prophylaxis: SC Heparin x 3 * Code: Full Code Problem List: 1. Elevated LFTs 2. Loose stools 3. Myopathy 4. Acute kidney injury Pain Ratin Pain Location: widespread muscle "tightness" Pain Goal: Pain 4 or less Pain Plan: prn Tomorrow's Labs & Rationales: patient to be discharged
--- NOTE | 2017-08-02 09:58 | PN- Nephrology ---
Assessment/Plan Nephrology Assessment: 1. TRINH secondary to acute tubular necrosis in setting of dehydration and intense, although short-lived, NSAID exposure - resolving 2. Probable CKD based on blood work earlier this year - although this was at time of an active medical problem, namely transient small bowel obstruction 3. Hypokalemia, hypocalcemia and hypomagnesemia in the setting of diarrhea 4. Hypovitaminosis D 5. History of nephrolithiasis Suggestion: 1. Remove tunneled dialysis catheter today in IR and then okay for discharge from renal standpoint on medications as noted below 2. KCl 20 mEq p.o. twice daily 3. Calcium carbonate 1250 mg p.o. twice daily between meals 4. Sodium bicarbonate 650 mg p.o. twice daily to be taken separately from the calcium carbonate (i.e. with meals) - this can be discontinued if/when his diarrhea resolves 5. Vitamin D 50,000 units p.o. weekly 8 weeks and then monthly 6 months 6. Arrange for BMP, magnesium level and CBC as an outpatient next week 7. Renal and GI outpatient follow-up Subjective Subjective: Patient feeling well and anxious to go home as soon as feasible. Creatinine down to 2.8 today. He remains hypokalemic with persistent diarrhea although less intense than earlier during this admission. Objective Vital Signs and I&Os Vital Signs Date Time Temp Pulse Resp B/P B/P Pulse O2 O2 Flow FiO2 Mean Ox Delivery Rate 08/02 0643 99.4 64 18 134/80 94 Room Air 08/01 2256 98.8 75 20 132/65 98 Room Air 08/01 1358 99.1 68 18 126/62 100 Room Air 08/01 1227 99.1 66 18 148/70 97 Room Air Intake & Output 08/02 1600 08/02 0400 08/01 1600 08/01 0400 07/31 1600 07/31 0400 Intake Total 102 295 6433 400 2125 585 Output Total 285 624 7479 600 900 Balance 0 345 -290 -200 1225 585 Intake, IV 600 135 383 1256 225 Intake, Oral 720 895 370 8653 360 Number 1 Bowel Movements Output, Urine 544 168 7100 600 900 Patient 169 lb 166 lb 167 lb 168 lb Weight Weight Bed scale Measurement Method Physical Exam: General: Well-developed white male in NAD Skin: No rash or jaundice HEENT: Conjunctivae pink, sclerae anicteric, mucous membranes moist Neck: Without masses or thyromegaly, no supraclavicular or cervical adenopathy Chest: Clear to P&A; tunneled dialysis catheter in place Heart: Regular rate and rhythm without S3 or rub Abdomen: Soft and nontender without palpable masses or organomegaly Extremities: Without cyanosis or edema Neuro: Awake and alert, no focal findings, no asterixis or myoclonus Results Pertinent Lab Results: Laboratory Tests 08/02 08/01 0710 0805 Chemistry Sodium (137 - 145 mmol/L) 139 138 Potassium (3.5 - 5.1 mmol/L) 3.3 L 3.0 L Chloride (98 - 107 mmol/L) 108 H 106 Carbon Dioxide (22 - 30 mmol/L) 23 22 Anion Gap (5 - 16) 8 9 BUN (9 - 20 mg/dL) 15 18 Creatinine (0.7 - 1.2 mg/dL) 2.8 H 3.2 H Estimated GFR (>60 ml/min) 24 L 21 L BUN/Creatinine Ratio (7 - 25 %) 5.4 L 5.6 L Magnesium (1.6 - 2.3 mg/dL) 1.5 L 1.6 Hematology CBC w Diff NO MAN DIFF REQ NO MAN DIFF REQ WBC (4.8 - 10.8 /CUMM) 7.9 7.2 RBC (4.70 - 6.10 /CUMM) 3.07 L 3.27 L Hgb (14.0 - 18.0 G/DL) 8.9 L 9.5 L Hct (42 - 52 %) 25.8 L 27.9 L MCV (80.0 - 94.0 FL) 84.0 85.3 MCH (27.0 - 31.0 PG) 29.1 29.1 MCHC (33.0 - 37.0 G/DL) 34.6 34.1 RDW (11.5 - 14.5 %) 13.7 14.0 Plt Count (130 - 400 /CUMM) 169 148 MPV (7.4 - 10.4 FL) 8.7 8.6 Gran % (42.2 - 75.2 %) 81.3 H 77.9 H Lymphocytes % (20.5 - 51.1 %) 7.4 L 8.8 L Monocytes % (1.7 - 9.3 %) 9.1 10.6 H Eosinophils % (0 - 5 %) 2.1 2.6 Basophils % (0.0 - 2.0 %) 0.1 0.1 Absolute Granulocytes (1.4 - 6.5 /CUMM) 6.4 5.6 Absolute Lymphocytes (1.2 - 3.4 /CUMM) 0.6 L 0.6 L Absolute Monocytes (0.10 - 0.60 /CUMM) 0.7 H 0.8 H Absolute Eosinophils (0.0 - 0.7 /CUMM) 0.2 0.2 Absolute Basophils (0.0 - 0.2 /CUMM) 0 0 05/22 0637 Chemistry Sodium (137 - 145 mmol/L) 137 Potassium (3.5 - 5.1 mmol/L) 2.7 *L Chloride (98 - 107 mmol/L) 105 Carbon Dioxide (22 - 30 mmol/L) 23 Anion Gap (5 - 16) 9 BUN (9 - 20 mg/dL) 16 Creatinine (0.7 - 1.2 mg/dL) 3.4 H Estimated GFR (>60 ml/min) 20 L BUN/Creatinine Ratio (7 - 25 %) 4.7 L Calcium (8.4 - 10.2 mg/dL) 7.1 L Magnesium (1.6 - 2.3 mg/dL) 1.9 Hematology CBC w Diff NO MAN DIFF REQ WBC (4.8 - 10.8 /CUMM) 6.4 RBC (4.70 - 6.10 /CUMM) 3.19 L Hgb (14.0 - 18.0 G/DL) 9.3 L Hct (42 - 52 %) 27.2 L MCV (80.0 - 94.0 FL) 85.3 MCH (27.0 - 31.0 PG) 29.2 MCHC (33.0 - 37.0 G/DL) 34.2 RDW (11.5 - 14.5 %) 14.0 Plt Count (130 - 400 /CUMM) 138 MPV (7.4 - 10.4 FL) 8.3 Gran % (42.2 - 75.2 %) 71.6 Lymphocytes % (20.5 - 51.1 %) 10.9 L Monocytes % (1.7 - 9.3 %) 15.2 H Eosinophils % (0 - 5 %) 2.0 Basophils % (0.0 - 2.0 %) 0.3 Absolute Granulocytes (1.4 - 6.5 /CUMM) 4.5 Absolute Lymphocytes (1.2 - 3.4 /CUMM) 0.7 L Absolute Monocytes (0.10 - 0.60 /CUMM) 1.0 H Absolute Eosinophils (0.0 - 0.7 /CUMM) 0.1 Absolute Basophils (0.0 - 0.2 /CUMM) 0
--- NOTE | 2017-08-02 12:57 | PN- Att Addend ---
Attending Addendum Attending Brief Note Patient seen and examined. Plan of care discussed with the medical team and the patient. Available lab work and radiology test reports were reviewed. Patient appears well. He is awake alert oriented. He has no new complaints. His vital signs are stable. Exam shows clear lungs and soft abdomen. Dialysis catheter is noted in the right upper chest area. Case discussed with the Guillermo Waddell MD from nephrology. Plan is to discharge patient home. His creatinine has decreased to 2.8. We'll remove does the catheter before discharge. Patient will need to follow with Dr. Waddell and PCP. Current Medications Sig/Derrick Start time Last Medication Dose Route Stop Time Status Admin Calcium Carbonate 3,750 MG TIDAC 07/26 1345 AC 08/02 PO 1146 Camphor/Menthol 1 NEEL TIDPRN PRN 07/27 1645 AC TOP Heparin Sodium 5,000 UNIT Q8 07/27 1400 AC 08/01 (Porcine) SC 1423 Loperamide HCl 2 MG Q6P PRN 07/29 1915 AC 07/31 PO 2104 Magnesium Sulfate 1 GM ONCE ONE 08/01 1130 DC 08/01 Dextrose/Water 100 ML IV 08/01 1529 1225 Melatonin 5 MG AT BEDTIME 07/27 2100 AC 08/01 PO 2023 Omeprazole 40 MG DAILY AC 07/26 1500 AC 08/02 PO 0615 Potassium Chloride 40 MEQ ONCE ONE 08/01 1500 DC 08/01 PO 08/01 1501 1422 Simethicone 80 MG Q6P PRN 07/29 1800 AC 07/29 PO 1800 Sodium Bicarbonate 650 MG TID 07/27 0900 AC 08/02 PO 0833 Sodium Chloride 1,000 ML Q13H 07/26 2145 DC 08/02 IV 0833 Laboratory Tests 08/02/17 0710: Anion Gap 8, Estimated GFR 24 L, BUN/Creatinine Ratio 5.4 L, Magnesium 1.5 L, CBC w Diff NO MAN DIFF REQ, RBC 3.07 L, MCV 84.0, MCH 29.1, MCHC 34.6, RDW 13.7 , MPV 8.7, Gran % 81.3 H, Lymphocytes % 7.4 L, Monocytes % 9.1, Eosinophils % 2.1, Basophils % 0.1, Absolute Granulocytes 6.4, Absolute Lymphocytes 0.6 L, Absolute Monocytes 0.7 H, Absolute Eosinophils 0.2, Absolute Basophils 0 08/01/17 0805: Anion Gap 9, Estimated GFR 21 L, BUN/Creatinine Ratio 5.6 L, Magnesium 1.6, CBC w Diff NO MAN DIFF REQ, RBC 3.27 L, MCV 85.3, MCH 29.1, MCHC 34.1, RDW 14.0 , MPV 8.6, Gran % 77.9 H, Lymphocytes % 8.8 L, Monocytes % 10.6 H, Eosinophils % 2.6, Basophils % 0.1, Absolute Granulocytes 5.6, Absolute Lymphocytes 0.6 L, Absolute Monocytes 0.8 H, Absolute Eosinophils 0.2, Absolute Basophils 0 07/31/17 0637: Anion Gap 9, Estimated GFR 20 L, BUN/Creatinine Ratio 4.7 L, Calcium 7.1 L, Magnesium 1.9, CBC w Diff NO MAN DIFF REQ, RBC 3.19 L, MCV 85.3, MCH 29.2, MCHC 34.2, RDW 14.0, MPV 8.3, Gran % 71.6, Lymphocytes % 10.9 L, Monocytes % 15.2 H , Eosinophils % 2.0, Basophils % 0.3, Absolute Granulocytes 4.5, Absolute Lymphocytes 0.7 L, Absolute Monocytes 1.0 H, Absolute Eosinophils 0.1, Absolute Basophils 0 Microbiology 07/31 1150 STOOL: Stool Culture - RES 07/31 1024 STOOL: Cryptosporidium Antigen - COMP 07/31 1024 STOOL: Giardia Antigen (HAYDE) - COMP Vital Signs Date Time Temp Pulse Resp B/P B/P Pulse O2 O2 Flow FiO2 Mean Ox Delivery Rate 08/02 0643 99.4 64 18 134/80 94 Room Air 08/01 2256 98.8 75 20 132/65 98 Room Air 08/01 1358 99.1 68 18 126/62 100 Room Air Intake & Output 08/02 1600 08/02 0800 08/02 0000 Intake Total 600 945 Output Total 600 600 Balance 0 345 Intake, IV 600 225 Intake, Oral 720 Output, Urine 600 600 Patient 169 lb 166 lb Weight Weight Bed scale Measurement Method
[2017-08-02] MEDS ORDERED: K-TAB ER20 MEQ PO (14:21)
[2017-08-02] MEDS ORDERED: OMEPRAZOLE20 M2 PO (14:21)
[2017-08-02 14:29] VITALS: BP 144/69
[2017-08-02] MEDS ORDERED: SODIUM BICARBO325 M1 PO (14:31)
[2017-08-02] MEDS ORDERED: VITAMIN D250000 UNIT PO (14:31)
[2017-08-02] MEDS ORDERED: CALCIUM CARBON500 M2 PO (14:31)
--- NOTE | 2017-08-02 15:08 | INTERVENTIONAL RADIOLOGY RPT ---
CLINICAL HISTORY: This patient is a 47-year-old male with history of acute renal failure requiring dialysis, who requires removal of a tunneled dialysis catheter as the catheter is no longer needed. PROCEDURES: 1. Removal of central venous catheter. PHYSICIANS: Dr. René Altman (attending). MEDICATIONS: No medications were administered. COMPLICATIONS: None. ESTIMATED BLOOD LOSS: <5 mL. SPECIMENS: None. CONTRAST: None. FLUOROSCOPY TIME: 0. PROCEDURE NOTE: Informed consent was obtained from the patient prior to the procedure. During this process, the procedure and potential alternatives were explained along with the intended outcome and benefits. The risks of the procedure, including the possibility of an unsuccessful procedure, as well as the risk of not doing the procedure, were discussed. The patient was given the opportunity to ask questions regarding the procedure and appeared competent to make decisions. A signed consent form documenting this discussion was placed in the medical record. A time-out procedure was performed. The patient was placed supine on the stretcher. The catheter entry site was prepped and draped in the usual sterile fashion. The catheter was removed using traction. The cuff was removed with the catheter. Direct pressure was applied at the venotomy site and along the tunnel until hemostasis was achieved. The exit site of the tunnel was covered with a sterile dressing. FINDINGS: The exit site of the catheter tunnel was non- erythematous and non- tender. IMPRESSION: Successful removal of the tunneled central venous catheter in the right chest. PLAN: 1. The patient was stable after the procedure and will be transferred back to his medical room. 2. The patient was instructed regarding wound care. 3. The patient is instructed to present to the emergency room or interventional radiology should the site bleed or if there are new signs of systemic or local infection. Otherwise, the patient will follow up with their primary care physician if indicated.
[2017-08-03] MEDS ORDERED: OXYCODONE HCL5 M2 PO (10:49)
== END 2017-08-02 16:49 | DRG 683 ==
LOC: ERH 06:19 → CRI 08:37 → ERHI 08:37 → 2NB 08:37 → EDBEDREQ 09:59 → ERHI 11:18 → ENRESERV 11:31 → ENTRNSPT 11:40 → EDTRNSPT 11:56 → EDTRNSPTSTS 11:56 → CRI 12:03 → CMPTRNSPT 12:17 → CRI 07-27 08:35 → ENTRNSPT 07-28 14:18 → EDTRNSPT 07-28 14:18 → 1NO 07-28 14:52 → CMPTRNSPT 07-28 15:49 → 1NO 07-29 14:54 → ENTRNSPT 08-01 19:37 → EDTRNSPT 08-01 19:44 → EDTRNSPTSTS 08-01 19:44 → 2NB 08-01 19:56 → CMPTRNSPT 08-01 19:59 → ENTRNSPT 08-02 16:33 → 2NB 08-02 16:49 → CMPTRNSPT 08-02 17:14
PROVIDERS: Emergency Medicine; Internal Medicine; Internal Medicine Nephrology
PROC: 5A1D70Z Performance of Urinary Filtration, Intermittent, Less than 6 Hours Per Day (ICD-10-PCS; principal; 2017-07-27)
PROC: B2141ZZ Fluoroscopy of Right Heart using Low Osmolar Contrast (ICD-10-PCS; 2017-07-27)
PROC: 02H633Z Insertion of Infusion Device into Right Atrium, Percutaneous Approach (ICD-10-PCS; 2017-07-27)
PROC: 02PA33Z Removal of Infusion Device from Heart, Percutaneous Approach (ICD-10-PCS; 2017-08-02)
DX: N17.0 Acute kidney failure with tubular necrosis (principal); E87.2 Acidosis; E87.6 Hypokalemia; R74.0 Nonspecific elevation of levels of transaminase and lactic acid dehydrogenase [LDH]; T39.315A Adverse effect of propionic acid derivatives, initial encounter; N14.0 Analgesic nephropathy; E55.9 Vitamin D deficiency, unspecified; E21.3 Hyperparathyroidism, unspecified; D72.825 Bandemia; N13.30 Unspecified hydronephrosis; R19.7 Diarrhea, unspecified; N20.0 Calculus of kidney; K58.9 Irritable bowel syndrome, unspecified; G72.9 Myopathy, unspecified; E86.0 Dehydration; N18.9 Chronic kidney disease, unspecified; N17.9 Acute kidney failure, unspecified
CPT/HCPCS: 04007; 1NSP; 2NBSP; 84133; 84300; 86021; 86160; CCU; 36415; 36592; 71046; 74176; 76775; 77001; 80307; 81001; 82436; 82570; 83010; 87040; 87045; 87086; 87328; 87329; 93005; 93010; 96361; 96374; 99291; C1752; C1769; G0480; J0636; J1644; J2001; J7060

== ENCOUNTER 2017-08-03 06:47 | Emergency (ER) | payer OTHER ==
[~2017-08-03] VITALS: Ht 162.6 cm; Wt 74.8 kg
[~2017-08-03 06:47] MED LIST changes: +CALCIUM CARBON500 M2 PO; +K-TAB ER20 MEQ PO; +OMEPRAZOLE20 M2 PO; +SODIUM BICARBO325 M1 PO; +VITAMIN D250000 UNIT PO
[2017-08-03 07:15] LABS: ABSOLUTE BASOPHIL COUNT 0.3 /CUMM (0.0-0.2); ABSOLUTE EOSINOPHIL COUNT 0.2 /CUMM (0.0-0.7); ABSOLUTE GRANULOCYTE CT 10.6 /CUMM (1.4-6.5); ABSOLUTE LYMPH COUNT 0.5 /CUMM (1.2-3.4); BASOPHIL % 2.5 % (0.0-2.0); EOSINOPHIL % 1.3 % (0-5); MEAN CORPUSCULAR HGB 29.1 PG (27.0-31.0); MEAN CORPUSCULAR HGB CONC 34.2 G/DL (33.0-37.0); MEAN CORPUSCULAR VOLUME 85.2 FL (80.0-94.0); MEAN PLATELET VOLUME 8.1 FL (7.4-10.4); PLATELET COUNT 247 /CUMM (130-400); RBC DISTRIBUTION WIDTH 13.6 % (11.5-14.5); RED BLOOD CELL CT 3.66 /CUMM (4.70-6.10)
--- NOTE | 2017-08-03 07:22 | ED GI/GU/ABDOMINAL COMPLAINT ---
History of Present Illness General Chief Complaint: Abdominal Pain/Flank Pain Stated Complaint: KIDNEY PAIN Source: patient, family, old records Exam Limitations: no limitations Vital Signs & Intake/Output Vital Signs & Intake/Output Vital Signs Date Time Temp Pulse Resp B/P B/P Pulse O2 O2 Flow FiO2 Mean Ox Delivery Rate 08/03 0857 98.6 72 18 180/81 99 Room Air 08/03 0659 98.8 71 20 175/90 100 Room Air Allergies Coded Allergies: No Known Drug Allergies (nkda 08/19/16) Reconcile Medications Calcium Carbonate 500 MG CALCIUM (1,250 MG) TABLET 1 TAB PO BID calcium supplement take BETWEEN MEALS (late morning and early evening) Ergocalciferol (Vitamin D2) (Vitamin D2) 50,000 UNIT CAPSULE 1 CAP PO SEE INSTRUCT low calcium Take one tab weekly for 8 weeks followed by one tab monthly for 6 months. Omeprazole 20 MG CAPSULE.DR 40 MG PO DAILY AC gastric protection Potassium Chloride (K-Tab ER) 20 MEQ TABLET.ER 1 TAB PO BID low K level Sodium Bicarbonate 325 MG TABLET 2 TAB PO BID acidosis take with meals. can stop when diarrhea stops. Triage Note: PATIENT ARRIVES TO ER TODAY S/P [employer] WITH CHIEF COMPLAINT OF PAIN/WEAKNESS. PATIENT RECENTLY DISCHARGED FROM [facility] FOR [facility] WITH DIALYSIS. PATIENT REPORTS 10/10 LEFT FLANK PAIN, DENIES BURNINIG WITH URINATION OR HEMATURIA. AWAITING PROVIDER EVAL. Triage Nurses Notes Reviewed? yes HPI: Patient was discharged yesterday after an admission for acute renal failure. Patient has a known kidney stone in the left kidney. Last night he developed severe left flank pain radiating around towards the front of his abdomen. The pain is constant. There are no aggravating or mitigating factors. The pain is 8 out of 10. There is no nausea or vomiting. Pain is sharp and stabbing in nature. Past History Travel History Traveled to [place] past 21 day No Medical History Any Pertinent Medical History? see below for history Neurological: NONE EENT: NONE Cardiovascular: NONE Respiratory: NONE Gastrointestinal: NONE Hepatic: NONE Renal: nephrolithiasis Musculoskeletal: NONE Psychiatric: NONE Endocrine: NONE Blood Disorders: NONE Cancer(s): NONE History of MRSA: No History of VRE: No History of CDIFF: No Surgical History Surgical History: KIDNEY STONES REMOVED ESWL x2 cystoscopy with retrograde Psychosocial History Who do you live with Spouse Services at Home None What is your primary language Urdu Tobacco Use: Quit <30 days ago ETOH Use: occasional use Illicit Drug Use: denies illicit drug use Family History Hx Contributory? No Review of Systems Review of Systems Constitutional: Reports: no symptoms. EENTM: Reports: no symptoms. Respiratory: Reports: no symptoms. Cardiovascular: Reports: no symptoms. GI: Reports: see HPI, abdominal pain. Genitourinary: Reports: no symptoms. Musculoskeletal: Reports: see HPI, back pain. Skin: Reports: no symptoms. Neurological/Psychological: Reports: no symptoms. Hematologic/Endocrine: Reports: no symptoms. Immunologic/Allergic: Reports: no symptoms. All Other Systems: Reviewed and Negative Physical Exam Physical Exam General Appearance: well developed/nourished, alert, awake, anxious, moderate distress Head: atraumatic, normal appearance Eyes: Bilateral: PERRL, EOMI. Ears, Nose, Throat, Mouth: hearing grossly normal, moist mucous membrane Neck: normal inspection, supple, full range of motion Respiratory: normal breath sounds, chest non-tender, no respiratory distress, lungs clear Cardiovascular: regular rate/rhythm, normal peripheral pulses Gastrointestinal: normal bowel sounds, soft, non-tender, no organomegaly Back: CVA tenderness (L) Extremities: normal range of motion Neurologic/Psych: no motor/sensory deficits, awake, alert, oriented x 3, normal mood/affect Skin: intact, normal color, warm/dry Core Measures ACS in differential dx? No Sepsis Present: No Sepsis Focused Exam Completed? No Progress Differential Diagnosis: ureterolithiasis, urinary retention, UTI/pyelo Plan of Care: Orders Procedure Date/time Status URINALYSIS 08/03 0713 Complete LACTIC ACID 08/03 0707 Complete COMPREHENSIVE METABOLIC PANEL 08/03 0707 Complete CBC WITHOUT DIFFERENTIAL 08/03 0707 Complete Current Medications Sig/Derrick Start time Last Medication Dose Stop Time Status Admin Morphine Sulfate 4 MG ONCE ONE 08/03 1100 AC (MORPHINE SULFATE) 08/03 1101 Laboratory Tests 08/03/17 1007: Lactic Acid Cancelled 08/03/17 0714: Urine Color YEL, Urine Clarity HAZY H, Urine pH 6.0, Ur Specific [place] 1.020, Urine Protein 100 H, Urine Ketones NEG, Urine Nitrite NEG, Urine Bilirubin NEG, Urine Urobilinogen 0.2, Ur Leukocyte Esterase SMALL H, Ur Microscopic SEDIMENT EXAMINED, Urine RBC 3-5, Urine WBC 3-5 H, Urine Bacteria RARE H, Urine Hemoglobin MOD H, Urine Glucose NEG 08/03/17 0708: Anion Gap 14, Estimated GFR 23 L, BUN/Creatinine Ratio 4.8 L, Glucose 100 H, Lactic Acid 1.0, Calcium 7.7 L, Total Bilirubin 0.7, AST 25, ALT 37, Alkaline Phosphatase 140 H, Total Protein 6.1 L, Albumin 3.1 L, Globulin 3.0, Albumin/ Globulin Ratio 1.0 L, CBC w Diff NO MAN DIFF REQ, RBC 3.66 L, MCV 85.2, MCH 29.1, MCHC 34.2, RDW 13.6, MPV 8.1, Gran % 84.3 H, Lymphocytes % 3.9 L, Monocytes % 8.0, Eosinophils % 1.3, Basophils % 2.5 H, Absolute Granulocytes 10.6 H, Absolute Lymphocytes 0.5 L, Absolute Monocytes 1.0 H, Absolute Eosinophils 0.2, Absolute Basophils 0.3 Diagnostic Imaging: Viewed by Me: Ultrasound. Discussed w/RAD: Ultrasound. Radiology Impression: PATIENT: NORM GRIFFIN PRESENT AGE: 47 PATIENT ACCOUNT NO: [id number] : 70 LOCATION: [facility] ORDERING PHYSICIAN: Lucius Damian MD SERVICE DATE: 08/03/17 EXAM TYPE: US - US-RENAL/KIDNEY EXAMINATION: US RETROPERITONEAL COMPLETE (RENAL) CLINICAL INFORMATION: Left-sided flank pain. COMPARISON: Renal ultrasound [address] abdomen pelvis 07/26/2017 TECHNIQUE: Real-time imaging of the kidneys and bladder. FINDINGS: RIGHT KIDNEY: 10.7 x 7.0 x 5.2 cm (SAG x AP x TRV ). The kidney is normal in size, contour, and echogenicity. Renal cortical thickness is normal. No calculi or focal parenchymal lesions. No hydronephrosis. LEFT KIDNEY: 9.9 x 5.8 x 4.9 cm (SAG x AP x TRV). The kidney is normal in size, contour, and echogenicity. Renal cortical thickness is normal. There is new left -sided hydronephrosis present with 2 large lower pole stones seen, each measuring 1.3 cm. BLADDER: The bladder was empty at the time of this study. Ureteral jet was noted on the right but not the hydronephrotic left side. IMPRESSION: Two large left-sided renal calculi as described above. Since the study of 07/26/2017, there has developed left-sided hydronephrosis. DICTATED BY: Tomy Mckeon MD DATE/TIME DICTATED:08/03/17937 CORPORATE CONTROLLER:MARCO A DATE/TIME TRANSCRIBED:08/03/17937 CONFIDENTIAL, DO NOT COPY WITHOUT APPROPRIATE AUTHORIZATION. <Electronically signed in Other Vendor System> SIGNED BY: Tomy Mckeon MD 08/03/17 1028 Initial ED EKG: none Comments: Patient and his been updated on the results. His pain is much better controlled after the morphine. He is awaiting the ultrasound. Departure Departure Disposition: HOME OR SELF CARE Condition: Stable Clinical Impression Primary Impression: Kidney stone on left side Referrals: Inez Colindres MD, I (PCP/Family) Adebayo Rodriguez MD Additional Instructions: TAKE OXYCODONE NEEDED FOR PAIN FOLLOW UP WITH DR.RIVERA GONZALEZ IF SYMPTOMS WORSEN OR FOR ANY CONCERNS Departure Forms: Customer Survey General Discharge Information Prescriptions: Current Visit Scripts Oxycodone HCl 1 CAP PO Q6P PRN PAIN #20 CAP
[2017-08-03 07:28] LABS: GRANULOCYTE % 84.3 % (42.2-75.2); HEMATOCRIT 31.2 % (42-52); WHITE BLOOD CELL COUNT 12.6 /CUMM (4.8-10.8)
--- NOTE | 2017-08-03 10:28 | ULTRASOUND REPORT ---
EXAMINATION: US RETROPERITONEAL COMPLETE (RENAL) CLINICAL INFORMATION: Left-sided flank pain. COMPARISON: Renal ultrasound 07/26/[address] abdomen pelvis 07/26/2017 TECHNIQUE: Real-time imaging of the kidneys and bladder. FINDINGS: RIGHT KIDNEY: 10.7 x 7.0 x 5.2 cm (SAG x AP x TRV). The kidney is normal in size, contour, and echogenicity. Renal cortical thickness is normal. No calculi or focal parenchymal lesions. No hydronephrosis. LEFT KIDNEY: 9.9 x 5.8 x 4.9 cm (SAG x AP x TRV). The kidney is normal in size, contour, and echogenicity. Renal cortical thickness is normal. There is new left-sided hydronephrosis present with 2 large lower pole stones seen, each measuring 1.3 cm. BLADDER: The bladder was empty at the time of this study. Ureteral jet was noted on the right but not the hydronephrotic left side. IMPRESSION: Two large left-sided renal calculi as described above. Since the study of 07/26/2017, there has developed left-sided hydronephrosis.
[2017-08-03] MEDS ORDERED: OXYCODONE HCL5 M2 PO (10:49)
[2017-08-03 10:57] VITALS: BP 189/83
== END 2017-08-03 11:01 ==
LOC: ERH 06:47
PROVIDERS: Emergency Medicine
DX: N20.0 Calculus of kidney (principal)
CPT/HCPCS: 76775; 81001; 96374; 96376; J7040

== ENCOUNTER 2017-08-05 01:48 | Inpatient (IN) | payer OTHER ==
[~2017-08-05] VITALS: Ht 162.6 cm; Wt 78.6 kg
[~2017-08-05 01:48] MED LIST changes: +OXYCODONE HCL5 M2 PO
--- NOTE | 2017-08-05 02:04 | ED GI/GU/ABDOMINAL COMPLAINT ---
History of Present Illness General Chief Complaint: Abdominal Pain/Flank Pain Stated Complaint: ABD PAIN Source: patient, family, old records Exam Limitations: no limitations Vital Signs & Intake/Output Vital Signs & Intake/Output Vital Signs Date Time Temp Pulse Resp B/P B/P Pulse O2 O2 Flow FiO2 Mean Ox Delivery Rate 08/05 0254 103 08/05 0254 103.0 08/05 0227 103.0 08/05 0156 103.1 120 20 136/75 97 Room Air Allergies Coded Allergies: No Known Drug Allergies (nkda 08/19/16) Reconcile Medications Calcium Carbonate 500 MG CALCIUM (1,250 MG) TABLET 1 TAB PO BID calcium supplement take BETWEEN MEALS (late morning and early evening) Ergocalciferol (Vitamin D2) (Vitamin D2) 50,000 UNIT CAPSULE 1 CAP PO SEE INSTRUCT low calcium Take one tab weekly for 8 weeks followed by one tab monthly for 6 months. Omeprazole 20 MG CAPSULE.DR 40 MG PO DAILY AC gastric protection Oxycodone HCl 5 MG CAPSULE 1 CAP PO Q6P PRN PAIN Potassium Chloride (K-Tab ER) 20 MEQ TABLET.ER 1 TAB PO BID low K level Sodium Bicarbonate 325 MG TABLET 2 TAB PO BID acidosis take with meals. can stop when diarrhea stops. Triage Note: PT HERE WITH C/O ABD PAIN AND BLOATING THAT BEGAN LAST NIGHT AND HAS PROGRESSIVELY GOTTEN WORSE. PT REPORTS BEING HERE ON SUNDAY AND BEING TOLD HE HAS KIDNEY STONES. +V-N-D. Triage Nurses Notes Reviewed? yes HPI: Patient was recently admitted to the hospital for acute renal failure. Patient has known kidney stones. Patient was discharged and return to the emergency room on Sunday with abdominal and flank pain. Ultrasound showed hydronephrosis and kidney stones. Patient felt better and was discharged home. Sunday morning he developed a fever that he is been controlling with Tylenol. Patient states his abdomen feels bloated. Patient states that yesterday he had a bowel movement and felt better however the bloating has come back so he decided to come back for evaluation. Past History Travel History Traveled to [place] past 21 day No Medical History Any Pertinent Medical History? see below for history Neurological: NONE EENT: NONE Cardiovascular: NONE Respiratory: NONE Gastrointestinal: NONE Hepatic: NONE Renal: nephrolithiasis Musculoskeletal: NONE Psychiatric: NONE Endocrine: NONE Blood Disorders: NONE Cancer(s): NONE History of MRSA: No History of VRE: No History of CDIFF: No Surgical History Surgical History: KIDNEY STONES REMOVED ESWL x2 cystoscopy with retrograde Psychosocial History Who do you live with Spouse Services at Home None What is your primary language Icelandic Tobacco Use: Never used ETOH Use: denies use Illicit Drug Use: denies illicit drug use Family History Hx Contributory? No Review of Systems Review of Systems Constitutional: Reports: see HPI, chills, fever. EENTM: Reports: no symptoms. Respiratory: Reports: no symptoms. Cardiovascular: Reports: no symptoms. GI: Reports: see HPI, abdominal pain, bloating. Genitourinary: Reports: no symptoms. Musculoskeletal: Reports: no symptoms. Skin: Reports: no symptoms. Neurological/Psychological: Reports: no symptoms. Hematologic/Endocrine: Reports: no symptoms. Immunologic/Allergic: Reports: no symptoms. All Other Systems: Reviewed and Negative Physical Exam Physical Exam General Appearance: well developed/nourished, alert, awake, anxious, mild distress Head: atraumatic, normal appearance Eyes: Bilateral: PERRL, EOMI. Ears, Nose, Throat, Mouth: hearing grossly normal, DRY MUCOSA Neck: normal inspection, supple, full range of motion Respiratory: normal breath sounds, chest non-tender, no respiratory distress, lungs clear Cardiovascular: regular rate/rhythm, normal peripheral pulses Gastrointestinal: normal bowel sounds, soft, non-tender Back: normal inspection, normal range of motion Extremities: normal range of motion Neurologic/Psych: no motor/sensory deficits, awake, alert, oriented x 3, normal mood/affect Skin: intact, normal color, warm/dry Core Measures ACS in differential dx? No Sepsis Present: No Sepsis Focused Exam Completed? No ED Sepsis Exam Date of Focused Sepsis Exam: 08/05/17 Time of Focused Sepsis Exam: 299 Sepsis Cardiac Exam: Regular Rate/Rhythm Sepsis Resp Exam: CTA Sepsis Cap Refill Exam: <2 Sec Sepsis Peripheral Pulse Exam: Normal Sepsis Peripheral Pulse Location: Radial Sepsis Skin Color Exam: Normal for Ethnicity Skin Temp/Moisture Exam: Warm/Dry Progress Differential Diagnosis: SBO, ureterolithiasis, INFECTED STONE Plan of Care: Orders Procedure Date/time Status Nothing by Mouth 08/05 B Active LACTIC ACID 08/06 503 Active ED Holding Orders 08/05 338 Active Admit to inpatient 08/05 338 Active Vital Signs 08/05 338 Active Code Status 08/05 338 Active CULTURE,URINE 08/06 203 Active BLOOD CULTURE 08/06 203 Active URINALYSIS 08/06 203 Complete LACTIC ACID 08/06 203 Complete COMPREHENSIVE METABOLIC PANEL 08/06 203 Complete CBC WITHOUT DIFFERENTIAL 08/06 203 Complete Laboratory Tests 08/05/17313: Urine Color YEL, Urine Clarity CLDY H, Urine pH 6.0, Ur Specific [place] 1.020, Urine Protein 100 H, Urine Ketones NEG, Urine Nitrite NEG, Urine Bilirubin NEG, Urine Urobilinogen 0.2, Ur Leukocyte Esterase LARGE H, Ur Microscopic SEDIMENT EXAMINED, Urine RBC 1-3, Urine WBC PACKD H, Urine Bacteria MANY H, Urine Hemoglobin LARGE H, Urine Glucose NEG 08/05/17213: Anion Gap 11, Estimated GFR 23 L, BUN/Creatinine Ratio 4.8 L, Glucose 116 H, Lactic Acid 1.3, Calcium 7.1 L, Total Bilirubin 1.8 H, AST 45, ALT 55, Alkaline Phosphatase 106, Total Protein 5.6 L, Albumin 2.7 L, Globulin 2.9, Albumin/Globulin Ratio 0.9 L, CBC w Diff NO MAN DIFF REQ, RBC 3.21 L, MCV 85.2 , MCH 29.2, MCHC 34.3, RDW 13.1, MPV 8.5, Gran % 89.7 H, Lymphocytes % 2.4 L, Monocytes % 7.8, Eosinophils % 0.1, Basophils % 0, Absolute Granulocytes 14.0 H , Absolute Lymphocytes 0.4 L, Absolute Monocytes 1.2 H, Absolute Eosinophils 0 , Absolute Basophils 0 Microbiology 08/05 313 URINE ROUT: Urine Culture - RECD 08/05 236 BLOOD: Blood Culture - RECD 08/05 213 BLOOD: Blood Culture - RECD Diagnostic Imaging: Viewed by Me: CT Scan. Discussed w/RAD: CT Scan. Initial ED EKG: none Departure Departure Disposition: STILL A PATIENT Condition: Stable Clinical Impression Primary Impression: Urinary tract obstruction by kidney stone Secondary Impressions: Sepsis, UTI (urinary tract infection) Referrals: Inez Colindres MD, I (PCP/Family) Departure Forms: Customer Survey General Discharge Information Admission Note Spoke With: Lewis Kenny MD Documentation of Exam: Documentation of any treatments & extenuating circumstances including Concerns Regarding Discharge (functional status, medication knowledge or non-compliance, living conditions, etc.) that warrant an admission rather than observation: [IV ABX, IV FLUIDS, REMOVAL OF IMPACTED STONE, FOLLOW UP CULTURES] Departure Forms: Customer Survey General Discharge Information Admission Note Spoke With: Lewis Kenny MD Documentation of Exam: Documentation of any treatments & extenuating circumstances including Concerns Regarding Discharge (functional status, medication knowledge or non-compliance, living conditions, etc.) that warrant an admission rather than observation: [IV ABX, IV FLUIDS, REMOVAL OF IMPACTED STONE, FOLLOW UP CULTURES]
[2017-08-05 02:45] LABS: ABSOLUTE BASOPHIL COUNT 0 /CUMM (0.0-0.2); ABSOLUTE EOSINOPHIL COUNT 0 /CUMM (0.0-0.7); ABSOLUTE LYMPH COUNT 0.4 /CUMM (1.2-3.4); ABSOLUTE MONOCYTE COUNT 1.2 /CUMM (0.10-0.60); BASOPHIL % 0 % (0.0-2.0); EOSINOPHIL % 0.1 % (0-5); GRANULOCYTE % 89.7 % (42.2-75.2); HEMATOCRIT 27.4 % (42-52); MEAN CORPUSCULAR HGB 29.2 PG (27.0-31.0); MEAN CORPUSCULAR HGB CONC 34.3 G/DL (33.0-37.0); MEAN CORPUSCULAR VOLUME 85.2 FL (80.0-94.0); MEAN PLATELET VOLUME 8.5 FL (7.4-10.4); PLATELET COUNT 187 /CUMM (130-400); RBC DISTRIBUTION WIDTH 13.1 % (11.5-14.5); RED BLOOD CELL CT 3.21 /CUMM (4.70-6.10)
[2017-08-05 03:04] LABS: WHITE BLOOD CELL COUNT 15.6 /CUMM (4.8-10.8)
--- NOTE | 2017-08-05 03:18 | CT SCAN REPORT ---
EXAMINATION: CT ABDOMEN AND PELVIS WITHOUT CONTRAST CLINICAL INFORMATION: Known kidney stone. Now with fever. COMPARISON: 07/26/2017. TECHNIQUE: Multidetector volumetric imaging was performed from the superior aspect of the liver through the pubic symphysis. Sagittal and coronal reformatted images were obtained on the technologist's workstation. DLP: 579 mGy-cm FINDINGS: LUNG BASES: Small bilateral pleural effusions have increased since the prior study. LIVER, GALLBLADDER, AND BILIARY TREE: The liver is normal in size, shape, and attenuation. No focal hepatic lesion or biliary ductal dilatation is present. Multiple stones are seen layering in the gallbladder lumen. No gallbladder wall thickening or pericholecystic fluid. PANCREAS: Unremarkable. SPLEEN: Unremarkable. ADRENAL GLANDS: Unremarkable. KIDNEYS AND URETERS: The kidneys are normal in size, shape, and attenuation. There is increased mild to moderate left hydronephrosis. There is distal migration of the prominent left calculus to the ureteropelvic junction. This measures 1.5 cm, 10 cm from the posterior axillary line. This measures 360 Hounsfield units. There is increased perinephric stranding. Layering hyperattenuation also seen within the lower pole of the left collecting system, suggesting additional smaller stones. BLADDER: Unremarkable. GASTROINTESTINAL TRACT: Stomach is unremarkable. The small bowel is normal in caliber. No obstruction. Normal appendix. No colonic wall thickening or inflammatory change. No free air or free fluid. ABDOMINAL WALL: Fat-containing left inguinal hernia. Right inguinal hernia containing a portion of the bladder. LYMPH NODES: There are multiple small retroperitoneal lymph nodes, although these are increased in prominence when compared to prior. For instance, there is a left para-aortic node with a short axis dimension of 0.8 cm, compared to 0.5 cm on the recent prior. VASCULAR: Unremarkable. PELVIC VISCERA: The prostate and seminal vesicles are unremarkable. OSSEOUS STRUCTURES: No acute or suspicious osseous abnormality. Degenerative changes of the spine. IMPRESSION: Mild to moderate left hydronephrosis. Migration of the prominent renal calculus to the ureteropelvic junction. There is increased left perinephric stranding. Increased prominence of retroperitoneal lymph nodes, which is likely reactive. This raises suspicion for an associated infectious process.
--- NOTE | 2017-08-05 04:15 | History & Physical ---
VerdugoYamile 08/05/17 0400: General Information and HPI MD Statement: I have seen and personally examined NORM STORY and documented this H&P. The patient is a 47 year old M who presented with a patient stated chief complaint of [Ab pain]. Source of Information: patient, old records Exam Limitations: no limitations History of Present Illness: Mr. Story is a 47yo M w/ PMH of Nephrolithiasis S/P ESWL right in 2017, possible CKD based on earlier blood work, chronic diarrhea in the past few months presented with progressively worsening abdominal pain and bloating that began the night prior to this admission. Patient was recently admitted in [facility] for acute renal failure due to acute tubular necrosis secondary to dehydration, went through dialysis, and was discharged home, however return to the ER on 08/03, with abdominal/flank pain. ER ultrasound showed increased left kidney hydronephrosis and kidney stones. Patient was discharged home with pain medications, however returned the next morning that he develop a fever, control with Tylenol, however felt his abdomen was bloated with gas, however denied any particular flank pain. Patient had vomited once this morning, mostly liquid with lying blood, and had no more vomiting or ever since. Patient had been urinating, most likely clear/cloudy yellowish color, without any apparent blood in the urine, or any complaining of burning/frequency/pain while urinating. During our clinical interaction, patient denied recent travel/sick contacts, lightheadedness/night sweat/weight change/cough/SOB/Chest Pain/Palpitation/bowel movement abnormality, or other skin/musculoskeletal/neurological/mood disorders, or dietary/appetite change. Allergies/Medications Allergies: Coded Allergies: No Known Drug Allergies (nkda 08/19/16) Home Med list Calcium Carbonate 500 MG CALCIUM (1,250 MG) TABLET 1 TAB PO BID calcium supplement take BETWEEN MEALS (late morning and early evening) Ergocalciferol (Vitamin D2) (Vitamin D2) 50,000 UNIT CAPSULE 1 CAP PO SEE INSTRUCT low calcium Take one tab weekly for 8 weeks followed by one tab monthly for 6 months. Omeprazole 20 MG CAPSULE.DR 40 MG PO DAILY AC gastric protection Oxycodone HCl 5 MG CAPSULE 1 CAP PO Q6P PRN PAIN Potassium Chloride (K-Tab ER) 20 MEQ TABLET.ER 1 TAB PO BID low K level Sodium Bicarbonate 325 MG TABLET 2 TAB PO BID acidosis take with meals. can stop when diarrhea stops. Past History Travel History Traveled to [place] past 21 day No Medical History Neurological: NONE EENT: NONE Cardiovascular: NONE Respiratory: NONE Gastrointestinal: NONE Hepatic: NONE Renal: nephrolithiasis Musculoskeletal: NONE Psychiatric: NONE Endocrine: NONE Blood Disorders: NONE Cancer(s): NONE History of MRSA: No History of VRE: No History of CDIFF: No Surgical History Surgical History: KIDNEY STONES REMOVED ESWL x2 cystoscopy with retrograde Past Family/Social History Psychosocial History Who Do You Live With? spouse Services at Home: None ETOH Use: denies use Illicit Drug Use: denies illicit drug use Functional Ability ADLs Independent: dressing, eating, toileting, bathing. Ambulation: independent IADLs Independent: shopping, housework, finances, food prep, telephone, transportation , medication admin. Review of Systems Review of Systems Constitutional: Reports: see HPI. Exam & Diagnostic Data Last 24 Hrs of Vital Signs/I&O Vital Signs Date Time Temp Pulse Resp B/P B/P Pulse O2 O2 Flow FiO2 Mean Ox Delivery Rate 08/05 0254 103 08/05 0254 103.0 08/05 0227 103.0 08/05 0156 103.1 120 20 136/75 97 Room Air Intake & Output 08/05 0800 08/05 0000 08/04 1600 Intake Total 1000 Output Total Balance 1000 Intake, IV 1000 Patient 74.843 kg Weight Weight Reported by Patient Measurement Method Physical Exam General Appearance Alert, Oriented X3, Cooperative, Mild Distress Skin No Breakdown, No Significant Lesion Skin Temp/Moisture Exam: Cool/Diaphoretic Sepsis Skin Exam (color): Normal for Ethnicity HEENT Atraumatic, PERRLA Neck Supple, No JVD Cardiovascular Regular Rate Lungs Clear to Auscultation, Normal Air Movement Abdomen Hyperactive bowelsound, more distended than baseline, gasy tenderness on palpation Left CVA tenderness Neurological Normal Speech, Strength at 5/5 X4 Ext Extremities No Edema, Normal Pulses Last 24 Hrs of Labs/Jerry: Laboratory Tests 08/05/17 0504: Lactic Acid Cancelled 08/05/17 0314: Urine Color YEL, Urine Clarity CLDY H, Urine pH 6.0, Ur Specific [place] 1.020, Urine Protein 100 H, Urine Ketones NEG, Urine Nitrite NEG, Urine Bilirubin NEG, Urine Urobilinogen 0.2, Ur Leukocyte Esterase LARGE H, Ur Microscopic SEDIMENT EXAMINED, Urine RBC 1-3, Urine WBC PACKD H, Urine Bacteria MANY H, Urine Hemoglobin LARGE H, Urine Glucose NEG 08/05/17 0214: Anion Gap 11, Estimated GFR 23 L, BUN/Creatinine Ratio 4.8 L, Glucose 116 H, Serum Osmolality Pending, Lactic Acid 1.3, Calcium 7.1 L, Phosphorus Pending, Magnesium Pending, Total Bilirubin 1.8 H, AST 45, ALT 55, Alkaline Phosphatase 106, Total Protein 5.6 L, Albumin 2.7 L, Globulin 2.9, Albumin/Globulin Ratio 0.9 L, CBC w Diff NO MAN DIFF REQ, RBC 3.21 L, MCV 85.2, MCH 29.2, MCHC 34.3, RDW 13.1, MPV 8.5, Gran % 89.7 H, Lymphocytes % 2.4 L, Monocytes % 7.8, Eosinophils % 0.1, Basophils % 0, Absolute Granulocytes 14.0 H, Absolute Lymphocytes 0.4 L, Absolute Monocytes 1.2 H, Absolute Eosinophils 0, Absolute Basophils 0 Microbiology 08/054 URINE ROUT: Urine Culture - RECD 08/05 236 BLOOD: Blood Culture - RECD 08/05 213 BLOOD: Blood Culture - RECD Assessment/Plan Assessment: On admission, Vitals: T-max 103.1, tachycardia 103, R 20, BP 136/75, 97% on room air -CBC: Leukocytosis 15.6, H/H 9.4/24.7 (baseline 14.2), granulocytes 89.7%, -BMP: Hyponatremia, hypokalemia, hypocalcemia, elevated creatinine 2.9 (baseline 1.6), -UA/Microbiology: Positive for leukoesterase, with pyuria, with no previous history of any positive blood/urine culture -Abdominal CT:Mild to moderate left hydronephrosis. Migration of the prominent renal calculus to the ureteropelvic junction.There is increased left perinephric stranding. Increased prominence of retroperitoneal lymph nodes, which is likely reactive. This raises suspicion for an associated infectious process. -Interventions in ER: Ceftriaxone 1, IVF, acetaminophen 1 Problem list/Assessment/Hospital Course: #Sepsis secondary to pyelonephritis (fever, tachycardia, source of infection) #Pyelonephritis with positive leukoesterase/pyuria/fever #Hydronephrosis secondary to nephrolithiasis of left kidney #TRINH on CKD #Hyponatremia, hypokalemia, hypocalcemia - Admit to general medicine, vitals per protocol for now -Pain control with Tylenol/morphine, avoid NSAIDs or any nephrotoxic agents. DVT prophylaxis Pharm PPX + ALPS N.p.o. Full Code As Ranked By This Provider Problem List: 1. Kidney stone on left side Core Measures/Misc (11/26) Acute Coronary Syndrome ACS Diagnosis: No Congestive Heart Failure Congestive Heart Failure Diagnosis No Cerebrovascular Accident CVA/TIA Diagnosis: No VTE (View Protocol) VTE Risk Factors Age>40 No Mechanical VTE Prophylaxis d/t N/A MechProphylax Ordered No VTE Pharm Prophylaxis d/t NA PharmProphylax ordered Sepsis (View protocol) Sepsis Present: Yes If YES complete Sepsis Event Note If YES complete Sepsis Event Note Efraín REES, [facility] 08/05/17 0616: Core Measures/Misc (11/26) Sepsis (View protocol) If YES complete Sepsis Event Note If YES complete Sepsis Event Note Attending MD Review Statement Attending Statement Attending MD Statement: examined this patient, discuss w/resident/PA/ADMINISTRATIVE SUPPORT CLERK, agreed w/resident/PA/ADMINISTRATIVE SUPPORT CLERK, discussed with family, reviewed images, amended to note Attending Assessment/Plan: 47 yo M with h/o nephrolithiasis s/p left renal ESWL (May 2017), CKD, was recently admitted (07/26 08/02) for acute kidney injury secondary to ATN in the setting of dehydration and NSAID exposure requiring transient dialysis after which dialysis catheter was removed as renal functions improved. He returned to the ER on August 03 for weakness and left flank pain. Renal ultrasound showed two large left sided renal calculi with new left sided hydronephrosis. Patient felt better with morphine, and was discharged on oxycodone with advise to follow up with Urologist. He however returns today for weakness, fatigue, abdominal distension/ bloating sensation, and fever that he has been controlling with tylenol. Reports an episode of vomiting. He reports cloudy urine without dysuria or hematuria or urinary frequency. Vitals: Tmax 103.1, tachycardic, BP 132/69, sats 96% RA. Exam: awake, lethargic but responding appropriately to questions, diaphoretic, pale and ill-appearing male. Dry mucosa, Skin warm and dry, capillary refill ~ 2 secs, Neck supple, Chest b/l clear, Heart S1S2 regular tachycardic, Abdomen soft, distended, BS+, left CVA tenderness+. Labs: WBC 15.6, H/H 9.4/27.4, Na 130, K 3.3, BUN 14, Creat 2.9 (baseline 1.5), glucose 116, S. Osm 271, Ca 7.1, Phosphorus 1.4, Mag 0.9. Lactic acid 1.3 UA cloudy, proteinuria, large leukocyte esterase, packed WBC, many bacteria. CT Abd/pelvis: mild to moderate left hydronephrosis, migration of prominent renal calculus to ureteropelvic junction. Increased left perinephric stranding, increased prominence of retroperitoneal LN which is reactive. Assessment and plan: 1. Sepsis 2. Acute cystitis, pyelonephritis 3. Obstructive uropathy with left hydronephrosis 4. Hypokalemia, hypomagnesemia 5. TRINH on CKD 6. Hyponatremia 7. Normocytic anemia - Admit to General medicine - Panculture - NPO for now - IV ceftriaxone - Urology consult - Possible OR for stent placement and stone removal - IV fluid aggressive hydration - Replete electrolytes - Obtain EKG - Tylenol or morphine as needed for pain - Avoid NSAIDs - Resume home meds DVT ppx Hep SC. Full code. Harjinder Keating 08/05/17 0716: Core Measures/Misc (11/26) Sepsis (View protocol) If YES complete Sepsis Event Note If YES complete Sepsis Event Note Resident Review Statement Resident Statement: examined this patient, discussed with internet marketing consultant, agreed with internet marketing consultant Other Findings: Mr Story is a 47 year old man w/ a PMHx of nephrolithiasis (lithrotripsy in 05/2017), NSAID induced acute tubular necrosis leading to TRINH on CKD w/ metabolic acidosis came to the hospital with a chief concern of abdominal discomfort and bloating. He was admitted and [facility] from 07/26-2017 with the treatment of acute tubular necrosis leading to TRINH requiring hemodilysis at that time. He was again evaluated the day after his discharge on 08/03/2017 at the ER, when he had left flank pain and was found to have left- sided nephrolithiasis and hydronephrosis. After he was discharged from the ER, he continued to have abdominal discomfort, and bloating sensation. He also had fever, and decreased appetite. At the time of admission-temperature 103.1, pulse rate 120, blood pressure 136/ 75, pulse ox 97% on room air. General Exam: AAOx3, mild acute distress, Skin: No rashes, no breakdown;HEENT: PERRLA, EOMI;Neck: Supple, No JVD ;No cervical lymphadenopathy;CVS: Reg Rate, Normal S1,S2, No MGR; Resp: Normal air entry, no ronchi/rales;Abdomen: Soft, CVA tenderness +, Normal Bowel Sounds;Neuro: Normal Speech, Strength 5/5 b/l x 4 extremities, Sensation intact, CN III-XII NL, Reflexes 2+;Extremities: No cyanosis, no pedal edema. Pertinent lab findings-W BC 15.6 (89% granulocytosis), platelets 187, hemoglobin 9.4 (baseline 9) likely from anemia of chronic disease and iron deficiency anemia. Sodium 130, potassium 3.3, chloride 93, bicarbonate 26, anion gap is 11. BUN 14, creatinine 2.9. Calcium 7.1, albumin 2.7, corrected calcium- 8.14, Vitamin D 5.2 (07/26/2017), PTH 466 (07/26/2017), lactic acid 1.3, total bilirubin 1.8, AST 45, ALT 55, alkaline phosphate is 106. Urinalysis revealed urine protein 100, leukocyte esterase positive, nitrites negative, bacteria positive, hemoglobin large, packed WBC. CT scan abdomen and pelvis 08/05/2017- Mild to moderate left hydronephrosis. Migration of the prominent renal calculus to the ureteropelvic junction. There is increased left perinephric stranding. Increased prominence of retroperitoneal lymph nodes, which is likely reactive. This raises suspicion for an associated infectious process. Etiology in this case with flank pain associated with fever +chills, costovertebral tenderness is likely from Pyelonephritis. Considering pyelonephritis being a clinical diagnosis, having radiological evidence of fat stranding confirms the diagnosis. Bacterial etiology with Escherichia coli being the most likely organism, but other uropathogens such as Klebsiella, Citrobacter, Enterobacter are possible etiologies. Predisposing factors such as mechanical obstruction with neprolithiasis is possibly contributing to the clinical situation. Differential diagnosis considered prostatitis or renal or perinephric abscesses. Problem list: 1. CKD 2. Sepsis 3. Hypovitaminosis D 4. Electrolyte abnormalities especially hypokalemia, and hypophosphatemia. 5. Hypotonic hypovolemic hyponatremia. 6. h/o ATN from analgesics -Admit the patient to general medicine service. -Empiric antibiotics with ceftriaxone, pending urine cultures. -Follow blood culture, usually do not correlate with more severe disease but can help us guide therapy. - Need for stent placement to be assessed. Urology has been contacted by the ER several times, and has been attempted by the housestaff too. NPO for now, pending evaluation by the urologist. -Monitor vitals closely -Follow CBCs daily -Treat sepsis with 0.9% saline, but given hyponatremia, monitor Na levels every 6-8hrs to ascertain the need for aggressive therapy. Ascertain the need for more fluids, after checking Na levels and change the fluids to 1/2 NS, if needed. If Sodium is overly corrected, start D5W. -Hypophosphatemia is likely due to hypovitaminosis D, and high PTH which should be cautiously corrected with phosphate. -Hypokalemia is to be corrected w/ po potassium, and cautiously given h/o TRINH. -For now, hold all po Calcium carbonate, sodium bicarb which could be restarted after the procedure, which are nelly-protective in his case. He doesnt appear to have low bicarb at this time. Housekeeping checklist: #1 DVT prophylaxis-subcutaneous heparin, which could be started after the procedure. Alps. #2 GI prophylaxis-Protonix as needed #3 diet-nothing by mouth for now. #4 medication reconciliation-completed. #5 code status-full code.
--- NOTE | 2017-08-05 05:49 | Admission Certification ---
Admission Certification Certification Statement - As attending physician, I certify that at the time of - admission, based on clinical presentation, severity of - symptoms, need for further diagnostic testing and - therapeutic interventions, and risk of adverse outcomes - without in-hospital treatment, in my clinical assessment, - this patient requires an acute hospital stay for a minimum - of two nights or longer. I have also considered psychsocial - factors such as support system, advanced age, financial - issues, cognitive issues, and failed out-patient treatments, - past re-admission history, safety of patient, and lack of - compliance as applicable. Specific rationale supporting this admission is: Sepsis, obstructive uropathy, UTI, acute pyelonephritis, renal failure.
[2017-08-05 06:43] VITALS: BP 124/68
--- NOTE | 2017-08-05 09:57 | Cons- Urology ---
General Information and HPI Consulting Request Date of Consult: 08/05/17 Requested By: Efraín REES,Samialakshmi Reason for Consult: urosepsis from obstructing kidney stone Source of Information: patient Exam Limitations: no limitations History of Present Illness: This is a 47yo male w/ PMH of nephrolithiasis s/p ESWL last year with Dr. Rodriguez with a hx of TRINH secondary to prolonged Aleve ingestion for stone pain requiring HD. He has had chronic diarrhea in the past few months and presented with worsening abdominal pain and bloating that began the night prior to this admission. ER ultrasound showed increased left kidney hydronephrosis and kidney stones. Patient was discharged home with pain medications with close fu with Urology on but he returned the next morning with fever. Patient had vomited once and no gross hematuria. On CT scan, he was found to have hydronephrosis on the left side with an obstructing proximal UPJ stone measuring 1.5cm 360HU. Allergies/Medications Allergies: Coded Allergies: No Known Drug Allergies (nkda 08/19/16) Home Med List: Calcium Carbonate 500 MG CALCIUM (1,250 MG) TABLET 1 TAB PO BID calcium supplement take BETWEEN MEALS (late morning and early evening) Ergocalciferol (Vitamin D2) (Vitamin D2) 50,000 UNIT CAPSULE 1 CAP PO SEE INSTRUCT low calcium Take one tab weekly for 8 weeks followed by one tab monthly for 6 months. Omeprazole 20 MG CAPSULE.DR 40 MG PO DAILY AC gastric protection Oxycodone HCl 5 MG CAPSULE 1 CAP PO Q6P PRN PAIN Potassium Chloride (K-Tab ER) 20 MEQ TABLET.ER 1 TAB PO BID low K level Sodium Bicarbonate 325 MG TABLET 2 TAB PO BID acidosis take with meals. can stop when diarrhea stops. Current Medications: Current Medications Sig/Derrick Start time Last Medication Dose Route Stop Time Status Admin Acetaminophen 0 .STK-MED ONE 08/05 0228 DC IV Acetaminophen 1,000 MG ONCE ONE 08/05 0215 DC 08/05 N/A 1 UNIT IV 08/05 228 0227 Ceftriaxone Sodium 1,000 MG 0 08/06 0300 AC IV 08/07 0259 Ceftriaxone Sodium 0 .STK-MED ONE 08/05 0331 DC .ROUTE Ceftriaxone Sodium 1,000 MG ONCE ONE 08/05 0330 DC 08/05 IV 08/05 033 0329 Heparin Sodium 5,000 UNIT Q8 08/05 1400 AC (Porcine) SC Magnesium Sulfate 1 GM Q2H 08/05 0730 AC 08/05 Dextrose/Water 100 ML IV 08/05 1129 0942 Magnesium Sulfate 2 GM ONCE ONE 08/05 0600 CAN Dextrose/Water 100 ML IV 08/05 0959 Oxycodone HCl 5 MG Q8P PRN 08/05 0515 AC 08/05 PO 0942 Phosphate 250 MG ONCE ONE 08/05 0845 CAN PO 08/05 0846 Potassium Chloride 20 MEQ ONCE ONE 08/05 0515 DC 08/05 PO 08/05 0516 0626 Potassium Phosphate 15 mMol ONE ONE 08/05 0915 AC Sodium Chloride 250 ML IV 08/05 1319 Sodium Chloride 1,000 ML BOLUS ONE 08/05 0515 DC 08/05 IV 08/05 0614 0545 Sodium Chloride 1,000 ML Q10H 08/05 0500 DC 08/05 IV 08/05 1459 0704 Sodium Chloride 2,245.29 ML ONCE ONE 08/05 0215 DC 08/05 IV 08/05 0216 0227 Past History Medical History Blood Transfusion Hx: No Neurological: NONE, NONE EENT: NONE Cardiovascular: NONE Respiratory: NONE Gastrointestinal: NONE Hepatic: NONE Renal: acute tubular necrosis, nephrolithiasis Musculoskeletal: NONE Psychiatric: NONE Endocrine: NONE Blood Disorders: NONE Cancer(s): NONE Surgical History Pertinent Surgical History: KIDNEY STONES REMOVED ESWL x2 cystoscopy with retrograde Psychosocial History Where Do You Live? Home Who Do You Live With? spouse Services at Home: None Smoking Status: Former Smoker ETOH Use: denies use Illicit Drug Use: denies illicit drug use Functional Ability ADLs Independent: dressing, eating, toileting, bathing. Ambulation: independent IADLs Independent: shopping, housework, finances, food prep, telephone, transportation , medication admin. Review of Systems Review of Systems Constitutional: Reports: fever, weakness. EENTM: Reports: no symptoms. Cardiovascular: Reports: no symptoms. Respiratory: Reports: no symptoms. GI: Reports: diarrhea, vomiting. Genitourinary: Reports: no symptoms. Musculoskeletal: Reports: back pain. Skin: Reports: no symptoms. Neurological/Psychological: Reports: no symptoms. Hematologic/Endocrine: Reports: no symptoms. Immunologic/Allergic: Reports: no symptoms. Exam & Diagnostic Data Vital Signs and I&O Vital Signs Date Time Temp Pulse Resp B/P B/P Pulse O2 O2 Flow FiO2 Mean Ox Delivery Rate 08/05 0643 97.5 84 18 124/68 97 08/05 0424 98.5 81 20 121/67 95 Room Air 08/05 0255 101.0 102 20 132/69 96 Room Air 08/05 0254 103 08/05 0254 103.0 08/05 0227 103.0 08/05 0156 103.1 120 20 136/75 97 Room Air Intake & Output 08/05 1600 08/05 0800 08/05 0000 08/04 1600 08/04 0808/04 0000 Intake Total 2160 Output Total Balance 2160 Intake, IV 2100 Intake, Oral 60 Number 1 Bowel Movements Patient 78.018 kg 73.482 kg Weight Weight Reported by Patient Measurement Method Physical Exam General Appearance: well developed/nourished, alert, awake, anxious Head: atraumatic, normal appearance Eyes: Bilateral: normal appearance. Ears, Nose, Throat: normal ENT inspection Neck: normal inspection Respiratory: normal breath sounds Gastrointestinal: soft, non-tender Rectal: deferred Back: normal inspection Extremities: normal inspection Neurologic/Psych: awake, alert, oriented x 3 Cranial Nerves: normal hearing, normal speech Skin: intact, normal color, warm/dry Reproductive: Normal male genitalia Last 24 Hours of Labs: Laboratory Tests 08/05 08/05 08/05 0820 0748 0504 Chemistry Sodium (137 - 145 mmol/L) 135 L Potassium (3.5 - 5.1 mmol/L) 3.6 Chloride (98 - 107 mmol/L) 100 Carbon Dioxide (22 - 30 mmol/L) 24 Anion Gap (5 - 16) 11 BUN (9 - 20 mg/dL) 13 Creatinine (0.7 - 1.2 mg/dL) 2.7 H Estimated GFR (>60 ml/min) 25 L BUN/Creatinine Ratio (7 - 25 %) 4.8 L Serum Osmolality Cancelled Lactic Acid Cancelled Urines Urine Osmolality Cancelled 08/05 08/05 0314 0214 Chemistry Sodium (137 - 145 mmol/L) 130 L Potassium (3.5 - 5.1 mmol/L) 3.3 L Chloride (98 - 107 mmol/L) 93 L Carbon Dioxide (22 - 30 mmol/L) 26 Anion Gap (5 - 16) 11 BUN (9 - 20 mg/dL) 14 Creatinine (0.7 - 1.2 mg/dL) 2.9 H Estimated GFR (>60 ml/min) 23 L BUN/Creatinine Ratio (7 - 25 %) 4.8 L Glucose (65 - 99 mg/dL) 116 H Serum Osmolality (285 - 295 MOSM/KG) 271 L Lactic Acid (0.7 - 2.1 mmol/L) 1.3 Calcium (8.4 - 10.2 mg/dL) 7.1 L Phosphorus (2.5 - 4.5 mg/dL) 1.4 L Magnesium (1.6 - 2.3 mg/dL) 0.9 *L Total Bilirubin (0.2 - 1.3 mg/dL) 1.8 H AST (17 - 59 U/L) 45 ALT (21 - 72 U/L) 55 Alkaline Phosphatase (< 127 U/L) 106 Total Protein (6.3 - 8.2 g/dL) 5.6 L Albumin (3.5 - 5.0 g/dL) 2.7 L Globulin (1.9 - 4.2 gm/dL) 2.9 Albumin/Globulin Ratio (1.1 - 2.2 %) 0.9 L Hematology CBC w Diff NO MAN DIFF REQ WBC (4.8 - 10.8 /CUMM) 15.6 H RBC (4.70 - 6.10 /CUMM) 3.21 L Hgb (14.0 - 18.0 G/DL) 9.4 L Hct (42 - 52 %) 27.4 L MCV (80.0 - 94.0 FL) 85.2 MCH (27.0 - 31.0 PG) 29.2 MCHC (33.0 - 37.0 G/DL) 34.3 RDW (11.5 - 14.5 %) 13.1 Plt Count (130 - 400 /CUMM) 187 MPV (7.4 - 10.4 FL) 8.5 Gran % (42.2 - 75.2 %) 89.7 H Lymphocytes % (20.5 - 51.1 %) 2.4 L Monocytes % (1.7 - 9.3 %) 7.8 Eosinophils % (0 - 5 %) 0.1 Basophils % (0.0 - 2.0 %) 0 Absolute Granulocytes (1.4 - 6.5 /CUMM) 14.0 H Absolute Lymphocytes (1.2 - 3.4 /CUMM) 0.4 L Absolute Monocytes (0.10 - 0.60 /CUMM) 1.2 H Absolute Eosinophils (0.0 - 0.7 /CUMM) 0 Absolute Basophils (0.0 - 0.2 /CUMM) 0 Urines Urine Color (YEL,AMB,STR) YEL Urine Clarity (CLEAR) CLDY H Urine pH (5.0 - 8.0) 6.0 Ur Specific [place] (1.001 - 1.035) 1.020 Urine Protein (NEG,<30 MG/DL) 100 H Urine Ketones (NEG) NEG Urine Nitrite (NEG) NEG Urine Bilirubin (NEG) NEG Urine Urobilinogen (0.1 - 1.0 EU/dl) 0.2 Ur Leukocyte Esterase (NEG) LARGE H Ur Microscopic SEDIMENT EXAMINED Urine RBC (0 - 5 /HPF) 1-3 Urine WBC (0 - 2 /HPF) PACKD H Urine Bacteria (NEG/NONE) MANY H Urine Hemoglobin (NEG) LARGE H Urine Glucose (N MG/DL) NEG Imaging Results: as in HPI Assessment/Plan Assessment/Plan This is a 47-year-old male with a history of nephrolithiasis with previous surgical intervention with Dr. Rodriguez. He was admitted due to fever and vomiting and elevated white count and creatinine with an obstructing left UPJ stone with hydronephrosis. His main complaint is abdominal distention and discomfort. He was given the options of the ureteral stent and the risks benefits and alternatives were given. All questions were answered. He is been nothing by mouth and receiving IV fluids. Consent was obtained. He will have the cystoscopy left ureteral stent placement and follow up with Dr. Rodriguez for definitive management of the 1.5 cm kidney stone. Problem List: 1. Leukocytosis 2. Kidney stone on left side 3. Urinary tract obstruction by kidney stone 4. UTI (urinary tract infection) 5. Sepsis Consult Acknowledgment - Thank you for your consult request.
--- NOTE | 2017-08-05 10:00 | Operative Report ---
Operative/Inv Procedure Report Surgery Date: 08/05/17 Name of Procedure: left ureteral stent with cystoscopy Pre-Operative Diagnosis: left hydronephrosis with obstructing stone and sepsis Post-Operative Diagnosis: same Estimated Blood Loss: scant Surgeon/Arresting Gear Operator: Lewis Kenny MD Anesthesia: local monitored anesthesi Drains: 6x24cm stent Specimens: urine culture Complications: none Condition: stable Operative Indication: left hydronephrosis and obstructing left kidney stone Operative/Procedure Note Note: This is a 47-year-old male with a history of kidney stones was admitted with urosepsis and a left obstructing urinary stone with hydronephrosis. He was given the risks benefits and alternatives of the surgery of cystoscopy and stent placement. All questions were answered. Patient's consent was signed by the patient and the was present. Patient was taken to the operating room placed on the operating table in the supine position. Timeout was performed. He had already received IV ceftriaxone in the ER. Once the IV sedation was begun, the patient was placed in the dorsal lithotomy position. He was prepped and draped in the standard sterile fashion. Cystoscopy was performed and the bladder was globally inspected. There were no abnormalities appreciated and the ureteral orifices were easily identified. A solo part guidewire was placed up into the renal pelvis. This was followed by a 6 x 24 cm ureteral stent. He had relief of his obstruction which was demonstrated with ureteral efflux of cloudy urine. The stent was seen to be in good position and the wire was removed. The bladder was emptied. The patient was cleaned of the Betadine solution. He was transferred to the recovery room in stable condition. Findings: Left hydronephrosis with cloudy urine efflux from the ureteral orifice once the stent was placed. Discharge Disposition: PACU
[2017-08-05 10:10] VITALS: BP 164/62
[2017-08-05 12:30] VITALS: BP 172/74
--- NOTE | 2017-08-05 13:34 | Cons- Nephrology ---
General Information and HPI Consulting Request Date of Consult: 08/05/17 Requested By: Efraín REES,Lewis Reason for Consult: Resolving TRINH Source of Information: patient, old records Exam Limitations: no limitations History of Present Illness: The patient is a 47-year-old man with a past medical history most significant for unclear base baseline kidney function with a creatinine of 1.6 in April 2017 (not clear if has been lower), recent hospital admission c/b TRINH requiring temporary dialysis (details below), nephrolithiasis who presents with abdominal pain. The patient was recently admitted to [facility] from July 26 until August 02 for weakness. In the setting of heavy NSAID use [place] he was found to have a creatinine of 7 on presentation. His creatinine further yun and ultimately he required hemodialysis. Fortunately after his dialysis treatment on 07/30, is able to recover kidney function and had his catheter removed prior to discharge on 08/02. His creatinine at the time of discharge was 2.9. Note that her renal imaging during that admission demonstrated 2 large 1.6 cm and 2.2 cm stones in the left kidney but no hydronephrosis. Patient now comes in with abdominal pain and fever of 103.1 with blood pressure 136/75 on presentation with a white count of 15.6. CT abdomen and pelvis demonstrating now mild to moderate left hydronephrosis with distal migration of the prominent left calculus to the ureteropelvic junction which is 1.5 cm in size. Perinephric stranding. Patient was seen by urology and had a left ureteral stent placed with reflux of cloudy urine. Cr 2.9 on presentation and now 2.7. Pt seen in room post-procedure complaining of chills. Allergies/Medications Allergies: Coded Allergies: No Known Drug Allergies (nkda 08/19/16) Home Med List: Calcium Carbonate 500 MG CALCIUM (1,250 MG) TABLET 1 TAB PO BID calcium supplement take BETWEEN MEALS (late morning and early evening) Ergocalciferol (Vitamin D2) (Vitamin D2) 50,000 UNIT CAPSULE 1 CAP PO SEE INSTRUCT low calcium Take one tab weekly for 8 weeks followed by one tab monthly for 6 months. Omeprazole 20 MG CAPSULE.DR 40 MG PO DAILY AC gastric protection Oxycodone HCl 5 MG CAPSULE 1 CAP PO Q6P PRN PAIN Potassium Chloride (K-Tab ER) 20 MEQ TABLET.ER 1 TAB PO BID low K level Sodium Bicarbonate 325 MG TABLET 2 TAB PO BID acidosis take with meals. can stop when diarrhea stops. Review of Systems Review of Systems: Complete 14 point ROS neg except as per HPI Past History Travel History Traveled to [place] past 21 day No Medical History Blood Transfusion Hx: No Neurological: NONE, NONE EENT: NONE Cardiovascular: NONE Respiratory: NONE Gastrointestinal: NONE Hepatic: NONE Renal: acute tubular necrosis, nephrolithiasis Musculoskeletal: NONE Psychiatric: NONE Endocrine: NONE Blood Disorders: NONE Cancer(s): NONE Surgical History Surgical History: KIDNEY STONES REMOVED ESWL x2 cystoscopy with retrograde Psychosocial History Where Do You Live? Home Who Do You Live With? spouse Services at Home: None Smoking Status: Former Smoker ETOH Use: denies use Illicit Drug Use: denies illicit drug use Functional Ability ADLs Independent: dressing, eating, toileting, bathing. Ambulation: independent IADLs Independent: shopping, housework, finances, food prep, telephone, transportation , medication admin. Exam & Diagnostic Data Vital Signs and I&O Vital Signs Date Time Temp Pulse Resp B/P B/P Pulse O2 O2 Flow FiO2 Mean Ox Delivery Rate 08/05 1230 98.9 110 18 172/74 96 Room Air 08/05 1010 102.7 110 18 164/62 93 Room Air 08/05 0800 93 Room Air 08/05 0643 97.5 84 18 124/68 97 08/05 0424 98.5 81 20 121/67 95 Room Air 08/05 0255 101.0 102 20 132/69 96 Room Air 08/05 0254 103 08/05 0254 103.0 08/05 0227 103.0 08/05 0156 103.1 120 20 136/75 97 Room Air Intake & Output 08/05 1600 08/05 0400 08/04 1600 08/04 0400 08/03 1600 08/03 0400 Intake Total 1285 1000 Output Total 900 Balance 385 1000 Intake, IV 1225 1000 Intake, Oral 60 Number 1 Bowel Movements Output, Urine 900 Patient 172 lb 165 lb Weight Weight Reported by Patient Reported by Patient Measurement Method Physical Exam: Gen - ill appearing, shaking Head - NCAT Eyes - anicteric sclera, EOMI Neck - supple, no LAD CV - RRR, no m/r/g Chest - clear, no w/r/r Abd - soft, NTND Upper ext - warm, no edema Lower ext - warm, no edema Skin - no rash or jaundice Neuro - AOX3, grossly nonfocal Results Pertinent Lab Results: Laboratory Tests 08/05 08/05 08/05 08/05 1000 0950 0820 0748 Chemistry Sodium (137 - 145 mmol/L) Cancelled 135 L Potassium (3.5 - 5.1 mmol/L) Cancelled 3.6 Chloride (98 - 107 mmol/L) Cancelled 100 Carbon Dioxide (22 - 30 mmol/L) Cancelled 24 Anion Gap (5 - 16) Cancelled 11 BUN (9 - 20 mg/dL) Cancelled 13 Creatinine (0.7 - 1.2 mg/dL) Cancelled 2.7 H Estimated GFR (>60 ml/min) 25 L BUN/Creatinine Ratio (7 - 25 %) Cancelled 4.8 L Serum Osmolality Cancelled Urines Urine Osmolality (300 - 1000 MOSM/KG) 345 Cancelled Ur Random Creatinine (mg/dL) 71.4 Ur Random Sodium (30 - 90 mmol/L) 100 H Ur Random Potassium (mmol/L) 16.4 Fraction Sodium Excret (<1% %) 2.8 H 08/05 08/05 0504 0314 Chemistry Lactic Acid Cancelled Urines Urine Color (YEL,AMB,STR) YEL Urine Clarity (CLEAR) CLDY H Urine pH (5.0 - 8.0) 6.0 Ur Specific [place] (1.001 - 1.035) 1.020 Urine Protein (NEG,<30 MG/DL) 100 H Urine Ketones (NEG) NEG Urine Nitrite (NEG) NEG Urine Bilirubin (NEG) NEG Urine Urobilinogen (0.1 - 1.0 EU/dl) 0.2 Ur Leukocyte Esterase (NEG) LARGE H Ur Microscopic SEDIMENT EXAMINED Urine RBC (0 - 5 /HPF) 1-3 Urine WBC (0 - 2 /HPF) PACKD H Urine Bacteria (NEG/NONE) MANY H Urine Hemoglobin (NEG) LARGE H Urine Glucose (N MG/DL) NEG 08/05 0214 Chemistry Sodium (137 - 145 mmol/L) 130 L Potassium (3.5 - 5.1 mmol/L) 3.3 L Chloride (98 - 107 mmol/L) 93 L Carbon Dioxide (22 - 30 mmol/L) 26 Anion Gap (5 - 16) 11 BUN (9 - 20 mg/dL) 14 Creatinine (0.7 - 1.2 mg/dL) 2.9 H Estimated GFR (>60 ml/min) 23 L BUN/Creatinine Ratio (7 - 25 %) 4.8 L Glucose (65 - 99 mg/dL) 116 H Serum Osmolality (285 - 295 MOSM/KG) 271 L Lactic Acid (0.7 - 2.1 mmol/L) 1.3 Calcium (8.4 - 10.2 mg/dL) 7.1 L Phosphorus (2.5 - 4.5 mg/dL) 1.4 L Magnesium (1.6 - 2.3 mg/dL) 0.9 *L Total Bilirubin (0.2 - 1.3 mg/dL) 1.8 H AST (17 - 59 U/L) 45 ALT (21 - 72 U/L) 55 Alkaline Phosphatase (< 127 U/L) 106 Total Protein (6.3 - 8.2 g/dL) 5.6 L Albumin (3.5 - 5.0 g/dL) 2.7 L Globulin (1.9 - 4.2 gm/dL) 2.9 Albumin/Globulin Ratio (1.1 - 2.2 %) 0.9 L Hematology CBC w Diff NO MAN DIFF REQ WBC (4.8 - 10.8 /CUMM) 15.6 H RBC (4.70 - 6.10 /CUMM) 3.21 L Hgb (14.0 - 18.0 G/DL) 9.4 L Hct (42 - 52 %) 27.4 L MCV (80.0 - 94.0 FL) 85.2 MCH (27.0 - 31.0 PG) 29.2 MCHC (33.0 - 37.0 G/DL) 34.3 RDW (11.5 - 14.5 %) 13.1 Plt Count (130 - 400 /CUMM) 187 MPV (7.4 - 10.4 FL) 8.5 Gran % (42.2 - 75.2 %) 89.7 H Lymphocytes % (20.5 - 51.1 %) 2.4 L Monocytes % (1.7 - 9.3 %) 7.8 Eosinophils % (0 - 5 %) 0.1 Basophils % (0.0 - 2.0 %) 0 Absolute Granulocytes (1.4 - 6.5 /CUMM) 14.0 H Absolute Lymphocytes (1.2 - 3.4 /CUMM) 0.4 L Absolute Monocytes (0.10 - 0.60 /CUMM) 1.2 H Absolute Eosinophils (0.0 - 0.7 /CUMM) 0 Absolute Basophils (0.0 - 0.2 /CUMM) 0 Imaging/Other Studies: EXAM TYPE: CAT - CT ABD & PELVIS W/O IV CONTRAS EXAMINATION: CT ABDOMEN AND PELVIS WITHOUT CONTRAST CLINICAL INFORMATION: Known kidney stone. Now with fever. COMPARISON: 07/26/2017. TECHNIQUE: Multidetector volumetric imaging was performed from the superior aspect of the liver through the pubic symphysis. Sagittal and coronal reformatted images were obtained on the technologist's workstation. DLP: 579 mGy-cm FINDINGS: LUNG BASES: Small bilateral pleural effusions have increased since the prior study. LIVER, GALLBLADDER, AND BILIARY TREE: The liver is normal in size, shape, and attenuation. No focal hepatic lesion or biliary ductal dilatation is present. Multiple stones are seen layering in the gallbladder lumen. No gallbladder wall thickening or pericholecystic fluid. PANCREAS: Unremarkable. SPLEEN: Unremarkable. ADRENAL GLANDS: Unremarkable. KIDNEYS AND URETERS: The kidneys are normal in size, shape, and attenuation. There is increased mild to moderate left hydronephrosis. There is distal migration of the prominent left calculus to the ureteropelvic junction. This measures 1.5 cm, 10 cm from the posterior axillary line. This measures 360 Hounsfield units. There is increased perinephric stranding. Layering hyperattenuation also seen within the lower pole of the left collecting system, suggesting additional smaller stones. BLADDER: Unremarkable. GASTROINTESTINAL TRACT: Stomach is unremarkable. The small bowel is normal in caliber. No obstruction. Normal appendix. No colonic wall thickening or inflammatory change. No free air or free fluid. ABDOMINAL WALL: Fat-containing left inguinal hernia. Right inguinal hernia containing a portion of the bladder. LYMPH NODES: There are multiple small retroperitoneal lymph nodes, although these are increased in prominence when compared to prior. For instance, there is a left para-aortic node with a short axis dimension of 0.8 cm, compared to 0.5 cm on the recent prior. VASCULAR: Unremarkable. PELVIC VISCERA: The prostate and seminal vesicles are unremarkable. OSSEOUS STRUCTURES: No acute or suspicious osseous abnormality. Degenerative changes of the spine. IMPRESSION: Mild to moderate left hydronephrosis. Migration of the prominent renal calculus to the ureteropelvic junction. There is increased left perinephric stranding. Increased prominence of retroperitoneal lymph nodes, which is likely reactive. This raises suspicion for an associated infectious process. Assessment/Plan Assessment/Recommendations Assessment: TRINH - Prior TRINH requiring HD - likely 2/2 ATN in the setting of hypovolemia and NSAID use. Continues to slowly improve. Not clear exactly what his baseline renal function is (SCr of 1.6 was in the setting of an SBO). Will need to continue supportive treatment through this additional insult of pyelo/ureteral obstruction. Hypomagnesemia/Hypokalemia/Hypocalcemia - Mg low again which can cause K wasting in the urine as well as impaired PTH release as well as resistance leading to hypocalcemia - need to replete magnesium. Recommendations: -Cont supportive care as you are -Needs 2g IV Mg supplementation and then may need to transition to PO - cont to monitor with labs -Calcium carbonate 1250mg BID -Replete K to 4.0 Please call [phone] with ?'s
[2017-08-05 14:18] VITALS: BP 110/64
--- NOTE | 2017-08-05 17:05 | RADIOLOGY REPORT ---
EXAMINATION: XR ABDOMEN CLINICAL INDICATION: Intraoperative fluoroscopy COMPARISON: Previous CT 08/05/2017 and ultrasound 08/03/2017 TECHNIQUE/findings: Fluoroscopic guidance was provided to Dr. Barajas for left internal ureteral stent placement. 5 fluoroscopic images are submitted. Fluoroscopy time 0.3 minutes. IMPRESSION: Fluoroscopic guidance for left internal ureteral stent placement.
[2017-08-05 21:14] VITALS: BP 145/69
[2017-08-06 06:27] VITALS: BP 148/64
[2017-08-06 08:10] VITALS: BP 128/64
--- NOTE | 2017-08-06 08:45 | PN- Housestaff ---
Justus Flores 08/06/17 0845: Subjective Follow-up For: #Sepsis secondary to pyelonephritis (fever, tachycardia, source of infection) #Pyelonephritis with positive leukoesterase/pyuria/fever #Hydronephrosis secondary to nephrolithiasis of left kidney s/p left ureteral stent with cystoscopy #TRINH on CKD #Hyponatremia, hypokalemia, hypocalcemia Review of Systems Constitutional: Reports: see HPI. Objective Last 24 Hrs of Vital Signs/I&O Vital Signs Date Time Temp Pulse Resp B/P B/P Pulse O2 O2 Flow FiO2 Mean Ox Delivery Rate 08/06 0911 99.7 08/06 0810 101.6 109 128/64 08/06 0627 102.9 109 18 148/64 96 08/05 2114 100.6 110 18 145/69 98 08/05 2004 100.6 08/05 1851 98.9 08/05 1829 98.9 08/05 1609 102.3 08/05 1418 102.3 124 20 110/64 93 Room Air 08/05 1230 98.9 110 18 172/74 96 Room Air Intake & Output 08/06 1600 08/06 0800 08/06 0000 Intake Total 360 630 Output Total 550 150 Balance -190 480 Intake, IV 150 Intake, Oral 360 480 Number 0 Bowel Movements Output, Urine 550 150 Patient 173 lb Weight Physical Exam General Appearance: Alert, Oriented X3, Cooperative, No Acute Distress Cardiovascular: Regular Rate, Normal S1, Normal S2 Lungs: Clear to Auscultation, Normal Air Movement Abdomen: Normal Bowel Sounds, Soft, No Tenderness Current Medications: Current Medications Sig/Derrick Start time Last Medication Dose Route Stop Time Status Admin Acetaminophen 325 MG Q4P PRN 08/06 0900 AC PO Acetaminophen 1,000 MG ONCE ONE 08/05 1530 DC 08/05 IV 08/05 1531 1609 Ampicillin 2,000 MG Q8H 08/06 1200 AC Sodium Chloride 100 ML IV Calcium Carbonate 1,250 MG DAILY 08/05 1855 AC 08/06 PO 0806 Ceftriaxone Sodium 1,000 MG 0300 08/07 0300 UNVr IV 08/08 0259 Ceftriaxone Sodium 1,000 MG 0300 08/06 0300 DC 08/06 IV 08/07 0259 0227 Heparin Sodium 5,000 UNIT Q8 08/05 1400 AC 08/06 (Porcine) SC 05 Magnesium Sulfate 1 GM Q2H 08/05 1900 DC 08/06 Dextrose/Water 100 ML IV 08/05 2259 0013 Oxycodone HCl 5 MG Q8P PRN 08/05 0515 AC 08/06 PO 0646 Phosphate 250 MG PC AND AT BEDTIME 08/05 1230 AC 08/06 PO 0806 Last 24 Hrs of Lab/Jerry Results Last 24 Hrs of Labs/Mics: Laboratory Tests 08/06/17 0618: Anion Gap 14, Estimated GFR 25 L, BUN/Creatinine Ratio 5.6 L, CBC w Diff NO MAN DIFF REQ, RBC 2.95 L, MCV 86.0, MCH 29.2, MCHC 33.9, RDW 14.0, MPV 9.6, Gran % 90.2 H, Lymphocytes % 2.2 L, Monocytes % 7.6, Eosinophils % 0, Basophils % 0, Absolute Granulocytes 12.2 H, Absolute Lymphocytes 0.3 L, Absolute Monocytes 1.0 H, Absolute Eosinophils 0, Absolute Basophils 0 Assessment/Plan Assessment: Problem list/Assessment/Hospital Course: #Sepsis secondary to pyelonephritis (fever, tachycardia, source of infection) #Pyelonephritis with positive leukoesterase/pyuria/fever #Hydronephrosis secondary to nephrolithiasis of left kidney s/p left ureteral stent with cystoscopy #TRINH on CKD #Hyponatremia, hypokalemia, hypocalcemia Plan: * Continue Ceftriaxone * Start Ampicillin * Urine cultures grew Enterococcus * Monitor and replete electrolytes * Zofran as needed * Continue all home meds * Pain control with Tylenol/morphine, avoid NSAIDs or any nephrotoxic agents. Diet; Regular DVT prophylaxis Pharm PPX + ALPS Full Code Problem List: 1. UTI (urinary tract infection) Pain Ratin Pain Location: NA Pain Goal: Remain pain free Pain Plan: NA Tomorrow's Labs & Rationales: CBC, BEP Jackie REES,Jer 08/06/17 1146: Attending MD Review Statement Attending Statement Attending MD Statement: examined this patient, discuss w/resident/PA/SPEED RUNNER, agreed w/resident/PA/SPEED RUNNER Attending Assessment/Plan: Patient seen and examined. Plan of care discussed with the medical team and the patient. Available lab work and radiology test reports were reviewed. Patient is status post left ureteral stent yesterday. He continues to be febrile with MAXIMUM TEMPERATURE 102.9. He reports a mild to moderate pain left flank area. His WBC count is 13.5 today. His urine cultures growing enterococcus. Assessment plan Left ureteral blockage with stone status post stent Left hydronephrosis Pyelonephritis with enterococcus Plan Continue ceftriaxone and add ampicillin to cover enterococcus- please adjust the dose and interval based on renal function Repeat blood culture patient remains febrile
[2017-08-06 09:14] LABS: ABSOLUTE BASOPHIL COUNT 0 /CUMM (0.0-0.2); ABSOLUTE EOSINOPHIL COUNT 0 /CUMM (0.0-0.7); ABSOLUTE GRANULOCYTE CT 12.2 /CUMM (1.4-6.5); ABSOLUTE LYMPH COUNT 0.3 /CUMM (1.2-3.4); BASOPHIL % 0 % (0.0-2.0); EOSINOPHIL % 0 % (0-5); HEMATOCRIT 25.4 % (42-52); MEAN CORPUSCULAR HGB 29.2 PG (27.0-31.0); MEAN CORPUSCULAR HGB CONC 33.9 G/DL (33.0-37.0); MEAN PLATELET VOLUME 9.6 FL (7.4-10.4); PLATELET COUNT 180 /CUMM (130-400); RED BLOOD CELL CT 2.95 /CUMM (4.70-6.10); WHITE BLOOD CELL COUNT 13.5 /CUMM (4.8-10.8)
[2017-08-06 10:31] LABS: GRANULOCYTE % 90.2 % (42.2-75.2)
[2017-08-06 15:29] VITALS: BP 125/53
[2017-08-06 21:47] VITALS: BP 108/50
[2017-08-07 05:36] VITALS: BP 128/60
[2017-08-07 07:57] LABS: ABSOLUTE BASOPHIL COUNT 0 /CUMM (0.0-0.2); ABSOLUTE EOSINOPHIL COUNT 0 /CUMM (0.0-0.7); ABSOLUTE GRANULOCYTE CT 8.7 /CUMM (1.4-6.5); ABSOLUTE LYMPH COUNT 0.3 /CUMM (1.2-3.4); ABSOLUTE MONOCYTE COUNT 0.9 /CUMM (0.10-0.60); BASOPHIL % 0 % (0.0-2.0); EOSINOPHIL % 0.2 % (0-5); HEMATOCRIT 23.4 % (42-52); MEAN CORPUSCULAR HGB 28.9 PG (27.0-31.0); MEAN CORPUSCULAR HGB CONC 33.6 G/DL (33.0-37.0); MEAN PLATELET VOLUME 9.2 FL (7.4-10.4); PLATELET COUNT 186 /CUMM (130-400); RBC DISTRIBUTION WIDTH 14.1 % (11.5-14.5); RED BLOOD CELL CT 2.72 /CUMM (4.70-6.10)
--- NOTE | 2017-08-07 13:15 | PN- Nephrology ---
Assessment/Plan Nephrology Assessment: 1. Recent TRINH secondary to acute tubular necrosis in setting of dehydration and intense, although short-lived, NSAID exposure -appeared to be resolving with creatinine leveling off in the mid to high 2's 2. Nephrolithiasis with left UPJ obstruction, enterococcus UTI and septic picture (fever, leukocytosis) - now with left ureteral stent in place and on empiric antibiotic therapy 3. Possible CKD based on blood work earlier this year - although this was at time of an active medical problem, namely transient small bowel obstruction 4. Hypokalemia, hypocalcemia and hypophosphatemia in the setting of diarrhea although he states that his diarrhea has recently resolved 5. Hypovitaminosis D Suggestion: 1. Aggressive potassium supplementation i.e. KCl 20 mEq by mouth 3 times a day while monitoring electrolytes daily 2. In addition, IV normal saline with 20 mEq KCl per liter at 100 mL per hour 3. If serum sodium continues to fall will need to institute p.o. fluid limit 4. Would discontinue his calcium carbonate which may be lowering his serum phosphorus level but continue vitamin D 50,000 units by mouth weekly 5. Continue phosphate supplementation 6. Monitor renal function, electrolytes, calcium, phosphorus and magnesium levels 7. Urology following 8. Final antibiotic regimen pending sensitivity results Subjective Subjective: Patient feeling better in general but now also complaining of some mild right flank pain. Fever and leukocytosis have resolved. Urine culture growing enterococcus, sensitivities to follow. Creatinine 2.6, sodium down to 128, potassium down to 2.9, magnesium 1.7. Objective Vital Signs and I&Os Vital Signs Date Time Temp Pulse Resp B/P B/P Pulse O2 O2 Flow FiO2 Mean Ox Delivery Rate 08/07 0436 99.1 88 20 128/60 98 Room Air 08/067 98.1 75 20 108/50 98 Room Air 08/06 2000 98.5 08/06 1848 102.8 08/06 1845 102.8 08/06 1738 103.2 08/06 1733 103.2 08/06 1529 100.4 108 20 125/53 97 Room Air Intake & Output 08/07 1600 08/07 0400 08/06 1600 08/06 0400 08/05 1600 08/05 0400 Intake Total 039 993 5187 630 1525 1000 Output Total 375 125 194 005 7450 Balance -275 25 490 038 725 5045 Intake, IV 100 100 024 243 4804 1000 Intake, Oral 1200 480 300 Number 1 1 0 2 Bowel Movements Output, Urine 375 125 147 265 5374 Patient 169 lb 173 lb 172 lb 165 lb Weight Weight Bed scale Reported by Patient Reported by Patient Measurement Method Physical Exam: General: Well-developed white male in NAD Skin: No rash or jaundice HEENT: Conjunctivae pale, sclerae anicteric, mucous membranes moist Neck: Without masses or thyromegaly, no supraclavicular or cervical adenopathy Chest: Clear to P&A Heart: Regular rate and rhythm without S3 or rub Abdomen: Soft and nontender without palpable masses or organomegaly Extremities: Without cyanosis or edema Neuro: Awake and alert, no focal findings, no asterixis or myoclonus Results Pertinent Lab Results: Laboratory Tests 08/07 08/06 0716 0618 Chemistry Sodium (137 - 145 mmol/L) 128 L 130 L Potassium (3.5 - 5.1 mmol/L) 2.9 *L 3.5 Chloride (98 - 107 mmol/L) 95 L 94 L Carbon Dioxide (22 - 30 mmol/L) 23 23 Anion Gap (5 - 16) 11 14 BUN (9 - 20 mg/dL) 21 H 15 Creatinine (0.7 - 1.2 mg/dL) 2.6 H 2.7 H Estimated GFR (>60 ml/min) 27 L 25 L BUN/Creatinine Ratio (7 - 25 %) 8.1 5.6 L Magnesium (1.6 - 2.3 mg/dL) 1.7 Hematology CBC w Diff NO MAN DIFF REQ NO MAN DIFF REQ WBC (4.8 - 10.8 /CUMM) 10.0 13.5 H RBC (4.70 - 6.10 /CUMM) 2.72 L 2.95 L Hgb (14.0 - 18.0 G/DL) 7.8 L 8.6 L Hct (42 - 52 %) 23.4 L 25.4 L MCV (80.0 - 94.0 FL) 86.0 86.0 MCH (27.0 - 31.0 PG) 28.9 29.2 MCHC (33.0 - 37.0 G/DL) 33.6 33.9 RDW (11.5 - 14.5 %) 14.1 14.0 Plt Count (130 - 400 /CUMM) 186 180 MPV (7.4 - 10.4 FL) 9.2 9.6 Gran % (42.2 - 75.2 %) 87.0 H 90.2 H Lymphocytes % (20.5 - 51.1 %) 3.5 L 2.2 L Monocytes % (1.7 - 9.3 %) 9.3 7.6 Eosinophils % (0 - 5 %) 0.2 0 Basophils % (0.0 - 2.0 %) 0 0 Absolute Granulocytes (1.4 - 6.5 /CUMM) 8.7 H 12.2 H Absolute Lymphocytes (1.2 - 3.4 /CUMM) 0.3 L 0.3 L Absolute Monocytes (0.10 - 0.60 /CUMM) 0.9 H 1.0 H Absolute Eosinophils (0.0 - 0.7 /CUMM) 0 0 Absolute Basophils (0.0 - 0.2 /CUMM) 0 0 08/05 08/05 08/05 08/05 1000 0950 0820 0748 Chemistry Sodium (137 - 145 mmol/L) Cancelled 135 L Potassium (3.5 - 5.1 mmol/L) Cancelled 3.6 Chloride (98 - 107 mmol/L) Cancelled 100 Carbon Dioxide (22 - 30 mmol/L) Cancelled 24 Anion Gap (5 - 16) Cancelled 11 BUN (9 - 20 mg/dL) Cancelled 13 Creatinine (0.7 - 1.2 mg/dL) Cancelled 2.7 H Estimated GFR (>60 ml/min) 25 L BUN/Creatinine Ratio (7 - 25 %) Cancelled 4.8 L Serum Osmolality Cancelled Urines Urine Osmolality (300 - 1000 MOSM/KG) 345 Cancelled Ur Random Creatinine (mg/dL) 71.4 Ur Random Sodium (30 - 90 mmol/L) 100 H Ur Random Potassium (mmol/L) 16.4 Fraction Sodium Excret (<1% %) 2.8 H 08/05 08/05 7145 6924 Chemistry Lactic Acid Cancelled Urines Urine Color (YEL,AMB,STR) YEL Urine Clarity (CLEAR) CLDY H Urine pH (5.0 - 8.0) 6.0 Ur Specific [place] (1.001 - 1.035) 1.020 Urine Protein (NEG,<30 MG/DL) 100 H Urine Ketones (NEG) NEG Urine Nitrite (NEG) NEG Urine Bilirubin (NEG) NEG Urine Urobilinogen (0.1 - 1.0 EU/dl) 0.2 Ur Leukocyte Esterase (NEG) LARGE H Ur Microscopic SEDIMENT EXAMINED Urine RBC (0 - 5 /HPF) 1-3 Urine WBC (0 - 2 /HPF) PACKD H Urine Bacteria (NEG/NONE) MANY H Urine Hemoglobin (NEG) LARGE H Urine Glucose (N MG/DL) NEG 08/05 0214 Chemistry Sodium (137 - 145 mmol/L) 130 L Potassium (3.5 - 5.1 mmol/L) 3.3 L Chloride (98 - 107 mmol/L) 93 L Carbon Dioxide (22 - 30 mmol/L) 26 Anion Gap (5 - 16) 11 BUN (9 - 20 mg/dL) 14 Creatinine (0.7 - 1.2 mg/dL) 2.9 H Estimated GFR (>60 ml/min) 23 L BUN/Creatinine Ratio (7 - 25 %) 4.8 L Glucose (65 - 99 mg/dL) 116 H Serum Osmolality (285 - 295 MOSM/KG) 271 L Lactic Acid (0.7 - 2.1 mmol/L) 1.3 Calcium (8.4 - 10.2 mg/dL) 7.1 L Phosphorus (2.5 - 4.5 mg/dL) 1.4 L Magnesium (1.6 - 2.3 mg/dL) 0.9 *L Total Bilirubin (0.2 - 1.3 mg/dL) 1.8 H AST (17 - 59 U/L) 45 ALT (21 - 72 U/L) 55 Alkaline Phosphatase (< 127 U/L) 106 Total Protein (6.3 - 8.2 g/dL) 5.6 L Albumin (3.5 - 5.0 g/dL) 2.7 L Globulin (1.9 - 4.2 gm/dL) 2.9 Albumin/Globulin Ratio (1.1 - 2.2 %) 0.9 L Hematology CBC w Diff NO MAN DIFF REQ WBC (4.8 - 10.8 /CUMM) 15.6 H RBC (4.70 - 6.10 /CUMM) 3.21 L Hgb (14.0 - 18.0 G/DL) 9.4 L Hct (42 - 52 %) 27.4 L MCV (80.0 - 94.0 FL) 85.2 MCH (27.0 - 31.0 PG) 29.2 MCHC (33.0 - 37.0 G/DL) 34.3 RDW (11.5 - 14.5 %) 13.1 Plt Count (130 - 400 /CUMM) 187 MPV (7.4 - 10.4 FL) 8.5 Gran % (42.2 - 75.2 %) 89.7 H Lymphocytes % (20.5 - 51.1 %) 2.4 L Monocytes % (1.7 - 9.3 %) 7.8 Eosinophils % (0 - 5 %) 0.1 Basophils % (0.0 - 2.0 %) 0 Absolute Granulocytes (1.4 - 6.5 /CUMM) 14.0 H Absolute Lymphocytes (1.2 - 3.4 /CUMM) 0.4 L Absolute Monocytes (0.10 - 0.60 /CUMM) 1.2 H Absolute Eosinophils (0.0 - 0.7 /CUMM) 0 Absolute Basophils (0.0 - 0.2 /CUMM) 0
--- NOTE | 2017-08-07 13:21 | PN- Housestaff ---
José REES,Inna 08/07/17 1321: Subjective Follow-up For: #Sepsis secondary to pyelonephritis (fever, tachycardia, source of infection) #Pyelonephritis with positive leukoesterase/pyuria/fever #Hydronephrosis secondary to nephrolithiasis of left kidney s/p left ureteral stent with cystoscopy #TRINH on CKD #Hyponatremia, hypokalemia, hypocalcemia Subjective: today patient notes slight pain in the flank, notable on urination. he denies any n/v/diarrhea. no other symptoms noted. bedside. patient seen walking the floors, conversant, AOx3 Review of Systems Constitutional: Reports: no symptoms. EENTM: Reports: no symptoms. Cardiovascular: Reports: no symptoms. Respiratory: Reports: no symptoms. Gastrointestinal: Reports: abdominal pain (flank pain). Musculoskeletal: Reports: no symptoms. Skin: Reports: no symptoms. Objective Last 24 Hrs of Vital Signs/I&O Vital Signs Date Time Temp Pulse Resp B/P B/P Pulse O2 O2 Flow FiO2 Mean Ox Delivery Rate 08/07 2149 98.8 86 18 122/62 97 Room Air 08/07 1423 99.0 87 20 130/58 98 Room Air 08/07 0536 99.1 88 20 128/60 98 Room Air Intake & Output 08/07 1600 08/07 0800 08/07 0000 Intake Total 960 100 100 Output Total 450 375 125 Balance 510 -275 -25 Intake, IV 100 100 Intake, Oral 960 Number 1 1 Bowel Movements Output, Urine 450 375 125 Patient 169 lb Weight Weight Bed scale Measurement Method Physical Exam General Appearance: Alert, Oriented X3, Cooperative, No Acute Distress Skin: No Rashes, No Breakdown, No Significant Lesion Skin Temp/Moisture Exam: Warm/Dry HEENT: Atraumatic, PERRLA, EOMI, Mucous Membr. moist/pink Cardiovascular: Regular Rate, Normal S1, Normal S2 Lungs: Clear to Auscultation, Normal Air Movement Abdomen: Normal Bowel Sounds, Soft, No Hepatospenomegaly Neurological: Normal Speech Extremities: No Clubbing, No Cyanosis, No Edema, Normal Pulses, No Tenderness/ Swelling Vascular: Normal Pulses, Pulses Symmetrical Current Medications: Current Medications Sig/Derrick Start time Last Medication Dose Route Stop Time Status Admin Acetaminophen 325 MG Q4P PRN 08/06 0900 AC 08/06 PO 1738 Ampicillin 2,000 MG Q8H 08/06 1200 AC 08/07 Sodium Chloride 100 ML IV 2006 Calcium Carbonate 1,250 MG DAILY 08/05 1855 DC 08/07 PO 0809 Ceftriaxone Sodium 1,000 MG 0300 08/07 0300 DC 08/07 IV 08/08 0259 0311 Cholecalciferol 50,000 IU ONCE A WEEK 08/07 1545 DC PO Docusate Sodium 100 MG DAILY 08/06 1603 AC 08/07 PO 0809 Ergocalciferol 50,000 IU ONCE A WEEK 08/07 1700 AC 08/07 PO 1743 Heparin Sodium 5,000 UNIT Q8 08/05 1400 AC 08/07 (Porcine) SC 2005 Oxycodone HCl 5 MG Q8P PRN 08/05 0515 AC 08/07 PO 1550 Phosphate 250 MG PC AND AT BEDTIME 08/05 1230 AC 08/07 PO 2005 Potassium Chloride 20 MEQ ONCE ONE 08/07 2200 DC 08/07 PO 08/07 2201 2006 Potassium Chloride 20 MEQ Q10H 08/07 1545 AC 08/07 Sodium Chloride 1,000 ML IV 1742 Potassium Chloride 40 MEQ ONCE ONE 08/07 1515 DC 08/07 PO 08/07 1516 1549 Potassium Chloride 40 MEQ ONCE ONE 08/07 0900 DC 08/07 PO 08/07 0901 0920 Senna 187 MG AT BEDTIME 08/06 2100 AC 08/07 PO 2006 Sodium Chloride 1,000 ML Q10H 08/07 1545 CAN IV Last 24 Hrs of Lab/Jerry Results Last 24 Hrs of Labs/Mics: Laboratory Tests 08/07/17 1643: Anion Gap 14, Estimated GFR 28 L, BUN/Creatinine Ratio 8.4, CBC w Diff NO MAN DIFF REQ, RBC 3.00 L, MCV 85.9, MCH 29.0, MCHC 33.8, RDW 14.1, MPV 9.4, Gran % 87.5 H, Lymphocytes % 3.6 L, Monocytes % 8.4, Eosinophils % 0.4, Basophils % 0.1, Absolute Granulocytes 8.0 H, Absolute Lymphocytes 0.3 L, Absolute Monocytes 0.8 H, Absolute Eosinophils 0, Absolute Basophils 0 08/07/17 1316: Urinalysis LIGHT H, Urine Color YEL, Urine Clarity HAZY H, Urine pH 6.0, Ur Specific [place] 1.025, Urine Protein 100 H, Urine Ketones NEG, Urine Nitrite NEG, Urine Bilirubin NEG@ICTO, Urine Urobilinogen 0.2, Ur Leukocyte Esterase SMALL H, Ur Microscopic SEDIMENT EXAMINED, Urine RBC >75 H, Urine WBC 50-75 H , Ur Epithelial Cells RARE, Urine Bacteria MOD H, Granular Casts 3-5 H, Urine Hemoglobin LARGE H, Urine Glucose NEG 08/07/17 1316: Ur Random Creatinine 119.3, Ur Random Sodium 44, Ur Random Potassium 13.3, Fraction Sodium Excret 0.7 08/07/17 0716: Anion Gap 11, Estimated GFR 27 L, BUN/Creatinine Ratio 8.1, Magnesium 1.7, CBC w Diff NO MAN DIFF REQ, RBC 2.72 L, MCV 86.0, MCH 28.9, MCHC 33.6, RDW 14.1, MPV 9.2, Gran % 87.0 H, Lymphocytes % 3.5 L, Monocytes % 9.3, Eosinophils % 0.2, Basophils % 0, Absolute Granulocytes 8.7 H, Absolute Lymphocytes 0.3 L, Absolute Monocytes 0.9 H, Absolute Eosinophils 0, Absolute Basophils 0 Assessment/Plan Assessment: Problem list/Assessment/Hospital Course: #Sepsis secondary to pyelonephritis (fever, tachycardia, source of infection) #Pyelonephritis with positive leukoesterase/pyuria/fever last yesterday #Hydronephrosis secondary to nephrolithiasis of left kidney s/p left ureteral stent with cystoscopy #TRINH on CKD: Recent TRINH secondary to acute tubular necrosis in setting of dehydration and heavy NSAID exposure -appeared to be resolving with creatinine leveling off in the mid to high 2's #Hyponatremia, hypokalemia, hypocalcemia Plan: * WBC trending downwards * Stop ceftriaxone * Continue Ampicillin for enterococcus, sensitivities in * Monitor and replete electrolytes * Zofran as needed * Continue all home meds * Pain control with Tylenol/oxycodone, avoid NSAIDs or any nephrotoxic agents. * Patient's did call Dr. Rodriguez regarding setting up a time for lithotripsy as patient still did not pass stone. * As per nephro, give K for 2.9 K level today with 20mEq tid, follow Na and if it continues to fall, then limit fuid. continue phos, stop calcium, continue vit D50k weekly * Anemia- stool occult and follow up Hb Diet; Regular DVT prophylaxis Pharm PPX + ALPS Full Code Problem List: 1. Sepsis 2. UTI (urinary tract infection) 3. Urinary tract obstruction by kidney stone 4. Kidney stone on left side Pain Ratin Pain Location: left flank pain Pain Goal: Pain 4 or less Pain Plan: prn Tomorrow's Labs & Rationales: cbc bep Shree Winters MD 08/07/17 1359: Attending MD Review Statement Attending Statement Attending MD Statement: examined this patient, discuss w/resident/PA/SHEETING PULLER, agreed w/resident/PA/SHEETING PULLER, discussed with family, reviewed EMR data (avail), discussed with nursing, discussed with case mgmt, amended to note Attending Assessment/Plan: Patient seen and examined. Resting comfortably alert in any acute distress. present at the bedside. Complains of mild discomfort in the left flank. Denies nausea. Denies vomiting. Denies gross hematuria. Recommendations: Discontinue ceftriaxone. Continue antibiotic therapy with Unasyn. Administer another dose of potassium chloride 40 mEq orally 1. Repeat potassium level this afternoon. Mobilize patient. Repeat hemoglobin level this afternoon and in a.m. Check stool guaiac. Anticipate discharge tomorrow on oral antibiotic therapy if his hemoglobin level is stable.
[2017-08-07 14:23] VITALS: BP 130/58
[2017-08-07 18:29] LABS: ABSOLUTE BASOPHIL COUNT 0 /CUMM (0.0-0.2); ABSOLUTE EOSINOPHIL COUNT 0 /CUMM (0.0-0.7); ABSOLUTE LYMPH COUNT 0.3 /CUMM (1.2-3.4); ABSOLUTE MONOCYTE COUNT 0.8 /CUMM (0.10-0.60); BASOPHIL % 0.1 % (0.0-2.0); EOSINOPHIL % 0.4 % (0-5); HEMATOCRIT 25.8 % (42-52); MEAN CORPUSCULAR HGB CONC 33.8 G/DL (33.0-37.0); MEAN CORPUSCULAR VOLUME 85.9 FL (80.0-94.0); MEAN PLATELET VOLUME 9.4 FL (7.4-10.4); PLATELET COUNT 197 /CUMM (130-400); RBC DISTRIBUTION WIDTH 14.1 % (11.5-14.5); WHITE BLOOD CELL COUNT 9.1 /CUMM (4.8-10.8)
[2017-08-07 19:10] LABS: GRANULOCYTE % 87.5 % (42.2-75.2)
[2017-08-07 21:49] VITALS: BP 122/62
[2017-08-08 07:00] VITALS: BP 128/62
--- NOTE | 2017-08-08 07:48 | PN- Housestaff ---
José REES,Inna 08/08/17 0748: Subjective Follow-up For: #Sepsis secondary to pyelonephritis (fever, tachycardia, source of infection) #Pyelonephritis with positive leukoesterase/pyuria/fever #Hydronephrosis secondary to nephrolithiasis of left kidney s/p left ureteral stent with cystoscopy #TRINH on CKD #Hyponatremia, hypokalemia, hypocalcemia Subjective: Patient feels good today and is ready to leave. He has continued mild pain in the right flank. he denies any nausea vomiting fever diarrhea chills. Review of Systems Constitutional: Reports: no symptoms. EENTM: Reports: no symptoms. Cardiovascular: Reports: no symptoms. Respiratory: Reports: no symptoms. Gastrointestinal: Reports: abdominal pain. Genitourinary: Reports: no symptoms. Musculoskeletal: Reports: no symptoms. Skin: Reports: no symptoms. Objective Last 24 Hrs of Vital Signs/I&O Vital Signs Date Time Temp Pulse Resp B/P B/P Pulse O2 O2 Flow FiO2 Mean Ox Delivery Rate 08/08 0700 98.6 75 18 128/62 98 08/07 2149 98.8 86 18 122/62 97 Room Air Intake & Output 08/08 1600 08/08 0800 08/08 0000 Intake Total 1500 1100 1000 Output Total 650 350 Balance 850 1100 650 Intake, IV 700 800 500 Intake, Oral 800 300 500 Number 3 Bowel Movements Output, Urine 650 350 Patient 173 lb Weight Physical Exam General Appearance: Alert, Oriented X3, Cooperative, No Acute Distress Cardiovascular: Regular Rate, Normal S1, Normal S2, No Murmurs Lungs: Clear to Auscultation, Normal Air Movement Abdomen: Normal Bowel Sounds, Soft, No Tenderness, No Hepatospenomegaly, No Masses Neurological: Normal Speech Current Medications: Current Medications Sig/Derrick Start time Last Medication Dose Route Stop Time Status Admin Acetaminophen 325 MG Q4P PRN 08/06 0900 DCD 08/06 PO 1738 Ampicillin 2,000 MG Q8H 08/06 1200 DCD 08/08 Sodium Chloride 100 ML IV 0524 Docusate Sodium 100 MG DAILY 08/06 1603 DCD 08/08 PO 0812 Ergocalciferol 50,000 IU ONCE A WEEK 08/07 1700 DCD 08/07 PO 1743 Heparin Sodium 5,000 UNIT Q8 08/05 1400 DCD 08/08 (Porcine) SC 0524 Oxycodone HCl 5 MG Q8P PRN 08/05 0515 DCD 08/08 PO 0813 Patient Medication 1 ED ONE ONE 08/08 1045 DC 08/08 Teaching ED 08/08 1046 1213 Phosphate 250 MG PC AND AT BEDTIME 08/05 1230 DCD 08/08 PO 1404 Potassium Chloride 20 MEQ ONCE ONE 08/07 220 DC 08/07 PO 08/07 Potassium Chloride 20 MEQ Q10H 08/07 1545 DCD 08/08 Sodium Chloride 1,000 ML IV 1405 Senna 187 MG AT BEDTIME 08/06 2100 DCD 08/07 PO 2005 Last 24 Hrs of Lab/Jerry Results Last 24 Hrs of Labs/Mics: Laboratory Tests 08/08/17 0716: Anion Gap 11, Estimated GFR 31 L, BUN/Creatinine Ratio 7.8, CBC w Diff NO MAN DIFF REQ, RBC 2.70 L, MCV 87.3, MCH 28.5, MCHC 32.7 L, RDW 14.0, MPV 9.2, Gran % 83.3 H, Lymphocytes % 4.5 L, Monocytes % 11.4 H, Eosinophils % 0.7, Basophils % 0.1, Absolute Granulocytes 5.3, Absolute Lymphocytes 0.3 L, Absolute Monocytes 0.7 H, Absolute Eosinophils 0, Absolute Basophils 0 Assessment/Plan Assessment: Problem list/Assessment/Hospital Course: #Sepsis secondary to pyelonephritis (fever, tachycardia, source of infection) #Pyelonephritis with positive leukoesterase/pyuria/fever last yesterday #Hydronephrosis secondary to nephrolithiasis of left kidney s/p left ureteral stent with cystoscopy #TRINH on CKD: Recent TRINH secondary to acute tubular necrosis in setting of dehydration and heavy NSAID exposure -appeared to be resolving with creatinine leveling off in the mid to high 2's #Hyponatremia, hypokalemia, hypocalcemia Plan: * WBC trending downwards * Stop ampicillin and start Augementin 875mg bid for 10 more days for UTI * Monitor and replete electrolytes * Zofran as needed * Continue all home meds * Pain control with Tylenol/oxycodone, avoid NSAIDs or any nephrotoxic agents. * Patient's did call Dr. Rodriguez regarding setting up a time for lithotripsy as patient still did not pass stone. * As per nephro DC with potassium tabs, stop calcium, continue vit D50k weekly * Follow up with nephrology outpatient for TRINH and electrolyte derangements. * Anemia- stool occult negative, will send patient for follow up cbc and bep for his HYPO-K in 5 days. * Referral to new PCP Dr. Mcgrath at patient's request. Diet; Regular DVT prophylaxis Pharm PPX + ALPS Full Code Problem List: 1. UTI (urinary tract infection) 2. Urinary tract obstruction by kidney stone Pain Ratin Pain Location: RIGHT FLANK Pain Goal: Pain 4 or less Pain Plan: OXYCODONE Tomorrow's Labs & Rationales: NA
--- NOTE | 2017-08-08 07:50 | Patient Discharge Instructions ---
Discharge Instructions General Discharge Information You were seen/treated for: NEPHROLITHIASIS UTI Special Instructions: 1. FOLLOW UP WITH PCP DR. RATLIFF IN ONE WEEK 2. FOLLOW UP WITH DR. KIDD UROLOGIST FOR LITHOTRIPSY August 3. PLEASE GET BLOOD CHEMISTRY LAB DONE IN ONE WEEK AT [facility] OR OUTSIDE LAB. RESULTS WILL BE SENT TO NEW PCP DR. RATLIFF. Diet Continue normal diet: Yes Activity Full Activity/No Limits: Yes Acute Coronary Syndrome Inclusion Criteria At DC or during hospital stay patient has or had the following: ACS DIAGNOSIS No Discharge Core Measures Meds if any: Prescribed or Continued at Discharge SANJEEV/ARB if EF <40% No Meds if any: NOT Prescribed or Continued at Discharge Congestive Heart Failure Inclusion Criteria At DC or during hospital stay patient has or had the following: CHF DIAGNOSIS No Discharge Core Measures Meds if any: Prescribed or Continued at Discharge Meds if any: NOT Prescribed or Continued at Discharge Cerebrovascular accident Inclusion Criteria At DC or during hospital stay patient has or had the following: CVA/TIA Diagnosis No Discharge Core Measures Meds if any: Prescribed or Continued at Discharge Meds if any: NOT Prescribed or Continued at Discharge Venous thromboembolism Inclusion Criteria VTE Diagnosis No VTE Type NONE VTE Confirmed by (Test) NONE Discharge Core Measures - Per Current guidelines, there needs to be overlap - treatment for the first 5 days of Warfarin therapy. - If discharged on Warfarin prior to 5 days of - overlap therapy, the patient will need to be - assessed for post discharge needs including - *Post discharge parental anticoagulation - *Warfarin and/or parental anticoagulation education - *Follow up date to check INR post discharge At least 5 days overlap therapy as Inpatient No Meds if any: Prescribed or Continued at Discharge Note: Overlap Therapy is Warfarin and Anticoagulant Meds if any: NOT Prescribed or Continued at Discharge
[2017-08-08 08:41] LABS: ABSOLUTE BASOPHIL COUNT 0 /CUMM (0.0-0.2); ABSOLUTE EOSINOPHIL COUNT 0 /CUMM (0.0-0.7); ABSOLUTE GRANULOCYTE CT 5.3 /CUMM (1.4-6.5); ABSOLUTE LYMPH COUNT 0.3 /CUMM (1.2-3.4); ABSOLUTE MONOCYTE COUNT 0.7 /CUMM (0.10-0.60); BASOPHIL % 0.1 % (0.0-2.0); EOSINOPHIL % 0.7 % (0-5); HEMATOCRIT 23.6 % (42-52); MEAN CORPUSCULAR HGB 28.5 PG (27.0-31.0); MEAN CORPUSCULAR HGB CONC 32.7 G/DL (33.0-37.0); MEAN CORPUSCULAR VOLUME 87.3 FL (80.0-94.0); MEAN PLATELET VOLUME 9.2 FL (7.4-10.4); WHITE BLOOD CELL COUNT 6.4 /CUMM (4.8-10.8)
[2017-08-08 09:06] LABS: GRANULOCYTE % 83.3 % (42.2-75.2); PLATELET COUNT 172 /CUMM (130-400)
[2017-08-08] MEDS ORDERED: AUGMENTIN 875-1 EACH PO ×2 (09:26→09:40)
== END 2017-08-08 15:11 | DRG 854 ==
LOC: ERH 01:48 → 2NB 03:39 → ERHI 03:39 → ENRESERV 04:19 → 2NB 05:27 → ENTRNSPT 12:19 → CMPTRNSPT 12:43 → 2NB 08-07 21:50 → ENPENDDIS 08-08 11:40 → ENTRNSPT 08-08 14:50 → CMPTRNSPT 08-08 15:07 → 2NB 08-08 15:11
PROVIDERS: Emergency Medicine; Internal Medicine Endocrinology, Diabetes & Metabolism; Student in an Organized Health Care Education/Training Program
PROC: 0T744DZ Dilation of Left Kidney Pelvis with Intraluminal Device, Percutaneous Endoscopic Approach (ICD-10-PCS; principal; 2017-08-05)
DX: A41.81 Sepsis due to Enterococcus (principal); N13.6 Pyonephrosis; E87.1 Hypo-osmolality and hyponatremia; E87.2 Acidosis; N12 Tubulo-interstitial nephritis, not specified as acute or chronic; N17.9 Acute kidney failure, unspecified; E87.6 Hypokalemia; D64.9 Anemia, unspecified; E83.42 Hypomagnesemia; D72.829 Elevated white blood cell count, unspecified
CPT/HCPCS: 2NBP; 84133; 84300; 36592; 74018; 74176; 81001; 82436; 82570; 87040; 87086; 87147; 93005; 93010; 96374; 96375; C2617; J0131; J0290; J0696; J1644

== ENCOUNTER → 2017-08-21 | Day surgery (SDC) | payer OTHER ==
[~2017-08-21] VITALS: Ht 162.6 cm; Wt 74.8 kg
[~2017-08-21] MED LIST changes: +AUGMENTIN 875-1 EACH PO
--- NOTE | 2017-08-21 14:54 | Operative Report ---
Operative/Inv Procedure Report Surgery Date: 08/21/17 Name of Procedure: left ESWL, fluoroscopy Pre-Operative Diagnosis: left ureter stone: colic Post-Operative Diagnosis: same Estimated Blood Loss: none Surgeon/Building Energy Consultant: Adebayo Rodriguez MD Anesthesia: moderate sedation Complications: none Operative/Procedure Note Note: The patient was taken to the operating room and placed on the ESWL table in supine position. Time out was performed, with the patient awake, to confirm identity, procedure, laterality, and other pertinent reid-operative information. After adequate anesthesia, the patient was positioned so that the left flank was placed over the ESWL table cut-out, and overlying the dome of the shockwave generator. C-arm fluroscopy, as well as renal US was used to locate the stone, and evaluate the left kidney. The stone was visible on fluroloscopy at the mid- left ureter. Renal US confirmed hydronephrosis, with one additional stone seen in the left kidney. The left ureter stone was approximate 12 mm in size, and clearly visible with fluoroscopy. Using fluoroscopy, the position of the ureter stone was optimized for ESWL, using AP, and oblique views of the stone. Subsequently, E.S.W.L. was initiated at low power levels x 200 shocks. After noting the patient's tolerance to the shockwaves, the shock wave lithotripor power level was quickly maximized. At the end of the procedure, the composition of the stone had changed significantly indicating the pulverization of the ureter stone. A total of 3000 shockwaves were delivered to the stone in order to achieve adequate lithotrypsy. All sponge needle and instrument count were correct at the end of the case. The patient tolerated the procedure well, was awakened, and taken to recovery in satisfactory condition via stretcher. The pt will eventually be dischared to home with pain meds, diet orders, and intructions to catch fragments with straining the urine. The patient is to have follow-up renal ultrasound and KUB (after the left renal stone is treated as well). Findings: 12 mm left upj stone Discharge Disposition: Same Day Admissions CC: Adebayo Rodriguez MD
== END ==
LOC: STS 01:49
DX: N13.2 Hydronephrosis with renal and ureteral calculous obstruction (principal); K21.9 Gastro-esophageal reflux disease without esophagitis; Z87.442 Personal history of urinary calculi

== ENCOUNTER → 2017-08-30 | Day surgery (SDC) | payer OTHER ==
[~2017-08-30] VITALS: Ht 162.6 cm; Wt 74.8 kg
--- NOTE | 2017-08-30 09:43 | Operative Report ---
Operative/Inv Procedure Report Surgery Date: 08/30/17 Name of Procedure: cystoscopy: left stent removal, left flex. ureteroscopy with retrograde- fluoroscopy Pre-Operative Diagnosis: left urete stone and stent Post-Operative Diagnosis: same Estimated Blood Loss: scant Surgeon/Sensory Scientist: Adebayo Rodriguez MD Anesthesia: moderate sedation Specimens: left stent Complications: none Condition: improved and pain free Operative/Procedure Note Note: The patient was taken to the operating room and placed on the OR table in supine position. Timeout was performed, with the patient awake, in order to confirm correct patient, procedure, laterality, and other pertinent reid-operative information. After adequate anesthesia and antibiotics, the patient was then placed in lithotomy stirrups, draped and prepped in the usual surgical fashion. A 22 Swedish cystoscope sheath with 30 angle lens was inserted into the bladder without difficulty. Upon entering the bladder, the bladder was noted to be free of tumor free of stone. Both orifices were in their orthotopic position. The left ureter orifice had a double-J stent which was grasped by an alligator forceps and extracted intact along with the cystoscope. The cystoscope was then reinserted into the bladder. The left ureter orifice was intubated with a tiger-tail catheter, and a retrograde pyelogram, with fluoroscopy, was performed, revealing no signficant filling defects. The tiger- tail catheter was removed, and the contrast material drained quickly. This was followed by insertion of a 0.035 Glidewire, which was advanced into the left renal pelvis without difficulty. Placement of the wire was confirmed with fluoroscopy. Leaving the Glidewire in place. flexible ureteroscope was inserted over the gluidewire, and followed the wire into the bladder, up the ureter, and into the left renal pelvis, with fluoroscopy visualization. A retrograde pyelogram was again performed via the ureteroscope revealing no filling defect, normal appearing left renal anatomy. Pyeloscopy/calyxoscopy of the upper, middle, and lower poles reveal no evidence of tumor. The entire length of the ureter was also visualized carefully on the way out, and the same findings (no stones or tumor) was confirmed. The bladder was then drained, after the ureteroscope was removed. The patient tolerated the procedure well was then taken to the recovery room in satisfactory condition. All sponge needle and instrument count were correct at the end of the case. The patient tolerated the procedure well. After recovery, the patient will be discharged with pain medication and antibiotics. is to follow up in 4 weeks. Discharge Disposition: Same Day Admissions CC: Adebayo Rodriguez MD
--- NOTE | 2017-08-31 03:18 | RADIOLOGY REPORT ---
EXAMINATION: CR ABDOMEN/INTRAOPERATIVE FLUOROSCOPY CLINICAL INDICATION: Left ureteroscopy in the OR. COMPARISON: 08/05/2017. TECHNIQUE/FINDINGS: Fluoroscopic equipment was dedicated to the operating room for the performance of an intraoperative procedure. Two spot films were acquired and are archived in PACS. Please refer to operative notes for procedural detail. FLUOROSCOPY TIME: 0.1 minutes. IMPRESSION: Administrative dictation for intraoperative fluoroscopy and image archiving in PACS. Please refer to operative notes for details.
== END ==
LOC: STS 01:49
DX: Z87.442 Personal history of urinary calculi (principal); K21.9 Gastro-esophageal reflux disease without esophagitis; Z87.891 Personal history of nicotine dependence
CPT/HCPCS: 74018; J2250